=== PATIENT | male | born 1950 | race Caucasian/White ===

== ENCOUNTER → 2018-10-05 | Outpatient (CLI) | payer MEDICARE ==
--- NOTE | 2018-10-05 13:37 | REP ---
BILATERAL HIPS, FIVE VIEWS: HISTORY: Pain. RIGHT HIP: There is no acute fracture or dislocation. There is marked narrowing of the hip joint space with associated sclerosis and osteophyte formation. Subchondral cysts are present in the acetabulum. IMPRESSION: Degenerative change as described above. LEFT HIP: There is no acute fracture or dislocation. There is marked narrowing of the hip joint space with associated sclerosis and osteophyte formation. Subchondral cysts are present in the acetabulum and femoral head. IMPRESSION: Degenerative change as described above. Electronically Signed by Ted Vick MD 10/05/2018 01:39 P
== END ==
LOC: M WUC 12:29
PROVIDERS: ATTEND Physician Assistant
DX: M25.551 Pain in right hip (principal); M25.552 Pain in left hip

== ENCOUNTER → 2018-12-29 | Outpatient (REF) | payer MEDICARE ==
[~2018-12-29] MED LIST: TRAM1CAP15 PO
[2018-12-29 17:40] LABS: ALBUMIN 3.2 GM/DL (3.2-5.2); ALT/SGPT 31 U/L (12-78); BILIRUBIN,TOTAL 1.6 MG/DL (0.2-1.0); BLOOD UREA NITROGEN 9 MG/DL (7-18); CALCIUM LEVEL 8.5 MG/DL (8.8-10.2); CARBON DIOXIDE LEVEL 23 MEQ/L (21-32); CHLORIDE LEVEL 111 MEQ/L (98-107); CREATININE FOR GFR 0.79 MG/DL (0.70-1.30); GLOMERULAR FILTRATION RATE > 60.0 (>49); GLUCOSE, FASTING 99 MG/DL (70-100); POTASSIUM SERUM 3.7 MEQ/L (3.5-5.1); SODIUM LEVEL 141 MEQ/L (136-145); TOTAL PROTEIN 6.8 GM/DL (6.4-8.2)
[2018-12-29 17:53] LABS: HEMATOCRIT 44.3 % (42.0-52.0); HEMOGLOBIN 15.6 g/dl (13.5-17.5); MEAN CORPUSCULAR HEMOGLOBIN 36.2 pg (27.0-33.0); MEAN CORPUSCULAR HGB CONC 35.2 g/dl (32.0-36.5); MEAN CORPUSCULAR VOLUME 102.8 fl (80.0-96.0); RED BLOOD COUNT 4.31 10^6/uL (4.30-6.10)
[2018-12-29 18:33] LABS: PLATELET COUNT, AUTOMATED 51 10^3/uL (150-450)
== END ==
LOC: M LABDRAW1 16:02 → M LAB REF 16:02
PROVIDERS: ATTEND Orthopaedic Surgery
DX: M16.12 Unilateral primary osteoarthritis, left hip (principal)

== ENCOUNTER 2019-01-12 13:00 | Inpatient (IN) | payer MEDICARE ==
[~2019-01-12] VITALS: Ht 180.3 cm; Wt 112.6 kg
[2019-01-14] MEDS ORDERED: TYLE650T35 PO (10:42)
--- NOTE | 2019-01-15 13:52 | HPE ---
DATE OF INTENDED ADMISSION: 01/19/2019 ATTENDING PHYSICIAN: Dr. Robert Gross. CHIEF COMPLAINT: Left hip pain and stiffness. HISTORY: This is a pleasant adult male patient with progressively worsening left hip pain and stiffness who comes into the clinic today failing to improve with conservative management. He has elected for surgery for his continued symptoms. He has consented for a left total hip arthroplasty by Dr. Gross. ALLERGIES: Demerol CURRENT MEDICATIONS: hydrochlorothiazide 50mg, aleve 220mg PAST MEDICAL HISTORY: hypertension PAST SURGICAL HISTORY: appendectomy, carpal tunnel release, clavicle surgery, right knee surgery FAMILY HISTORY: Mother: cancer SOCIAL HISTORY: The patient does not smoke, he does use alcohol daily. REVIEW OF SYSTEMS: Denies fever, chills, chest pains, shortness of breath, nausea or vomiting, diarrhea. Did report recent pain and stiffness with weightbearing activities in the left hip. Denies any recent upper respiratory or urinary tract infection. PHYSICAL EXAMINATION: On physical exam, he is a well-developed, well-nourished adult male, in no apparent distress. He ambulates in the clinic today with a slightly antalgic gait favoring the left side. He is normocephalic, atraumatic. Neck is supple and nontender with no lymphadenopathy or jugular venous distention (JVD). S1, S2 are auscultated with no murmurs, rubs or gallops. Lungs: Clear to auscultation bilaterally. Abdomen was soft and nondistended. Examination of the left hip reveals intact skin and there is no rashes or ecchymosis. He has a well perfused left lower extremity. EKG noted for unusual P axis, possible ectopic ATAC with second degree AV block and AV conduction abnormality, nonspecific T-wave wave abnormalities. Prolonged QT. Chest x-ray shows normal cardiac and mediastinal contours. Pulmonary vascular within normal limits. Lungs: Clear. No pleural effusion and no active disease in the chest. Labs show creatinine 58, white blood cells 3.1, red blood cells 4.68, hemoglobin 164, hematocrit 0.46, platelets 54. Sed rate 21. Medical optimization was performed by the patient's primary care provider and was reviewed today on the chart. ASSESSMENT/PLAN: Symptomatic left hip osteoarthritis. PLAN: Consented surgery for left total hip arthroplasty by Dr. Gross. [facility]
[2019-01-19] MEDS ORDERED: LR 1,000 ML IV ONE (06:00)
[2019-01-19] MEDS ORDERED: ACETAMINOPHEN 500 MG TAB PO ONE (06:00)
[2019-01-19 12:40] LABS: PLATELET COUNT, AUTOMATED 50 10^3/uL (150-450)
[2019-01-19] MEDS ORDERED: PROPOFOL 200 MG/20 ML VIAL As Ordered ONE ×2 (14:26→17:43)
[2019-01-19] MEDS ORDERED: LIDOCAINE 2% INJ 100 MG/5 ML SDV (FOR ANES.) As Ordered ONE (14:26)
[2019-01-19] MEDS ORDERED: ONDANSETRON 4MG/2ML VIAL (J2405) As Ordered ONE (14:26)
[2019-01-19] MEDS ORDERED: fentaNYL 100 MCG/2 ML INJECTION (J3010) As Ordered ONE (14:28)
[2019-01-19] MEDS ORDERED: MIDAZOLAM INJ 2 MG/2 ML VIAL (J2250) As Ordered ONE (14:28)
[2019-01-19] MEDS ORDERED: ceFAZolin 1GM INJ (J0690 PER 500MG) As Ordered ONE (14:42)
[2019-01-19] MEDS ORDERED: EPINEPHrine INJ 1 MG/ML 1ML AMP As Ordered ONE (14:42)
[2019-01-19] MEDS ORDERED: dexameTHASONE 4 MG/ML 1ML VIAL (J1100) As Ordered ONE (15:44)
[2019-01-19] MEDS ORDERED: ROCURONIUM BROMIDE 50 MG/5 ML VIAL As Ordered ONE ×2 (15:44→16:50)
[2019-01-19] MEDS ORDERED: LABETALOL HCL 100 MG/20 ML VIAL As Ordered ONE (16:21)
[2019-01-19] MEDS ORDERED: NITROGLYCERIN 2% OINT 1 GM *U/D* PKT As Ordered ONE (16:33)
[2019-01-19] MEDS ORDERED: HYDROmorphone HCL 2 MG/ML 1ML VIAL (J1170) As Ordered ONE (16:43)
[2019-01-19] MEDS ORDERED: SUGAMMADEX SODIUM 500 MG/5 ML VIAL (BRIDION) As Ordered ONE (16:47)
[2019-01-19] MEDS ORDERED: MORPHINE 1MG/ML IN 0.9% NACL 100ML IV BAG As Ordered ONE (18:26)
[2019-01-19] MEDS ORDERED: diphenhydrAMINE INJ 50MG/ML VIAL (J1200) IV PRN (18:45)
[2019-01-19] MEDS ORDERED: MORPHINE 1MG/ML IN 0.9% NACL 100ML IV BAG IV PRN (18:45)
[2019-01-19] MEDS ORDERED: NALOXONE INJ 0.4 MG/1 ML VIAL (J2310) IV PRN (18:45)
[2019-01-19] MEDS ORDERED: FLEET ENEMA PR PRN (18:45)
[2019-01-19] MEDS ORDERED: LR 1,000 ML IV SCH ×2 (18:45)
[2019-01-19] MEDS ORDERED: fentaNYL 100 MCG/2 ML INJECTION (J3010) IV PRN (18:45)
[2019-01-19] MEDS ORDERED: NORCO, ANEXSIA 5/325MG TABLET (HYDROcodone/ACETAMINOPHEN) PO PRN (18:45)
[2019-01-19] MEDS ORDERED: ACETAMINOPHEN TAB 650MG DOSE (2X325MG) PO PRN (18:45)
[2019-01-19] MEDS ORDERED: NALBUPHINE HCL 10 MG/ML AMP (J2300) IV PRN (18:45)
[2019-01-19] MEDS ORDERED: EPIDURAL/PCA KEYS XX PRN (18:45)
[2019-01-19] MEDS ORDERED: ONDANSETRON 4MG/2ML VIAL (J2405) IV PRN ×2 (18:45)
[2019-01-19 20:00] VITALS: BP 210/106
[2019-01-19] MEDS ORDERED: hydrALAZINE INJ 20 MG/ML VIAL IV STA (20:43)
[2019-01-19 21:35] VITALS: BP 158/75
[2019-01-19 22:00] VITALS: BP 141/69
[2019-01-19] MEDS: amLODIPine 10 MG TAB PO SCH (22:17)
--- NOTE | 2019-01-19 23:32 | CR.PDOC ---
General Date of Consultation: Jan 19, 2019 Consultation REASON FOR CONSULTATION/CHIEF COMPLAINT: co management. HISTORY OF PRESENT ILLNESS: 68 y/o M s/p total left hip replacement after failing outpatient conservative treatment for osteoarthritis. Pt tolerated the procedure very well. Postoperatively pt was found hypertensive and was given iv hydralazine 10 mg once. Hospitalist service was consulted for comanagement. Pt was seen and examined at bedside. Pt was resting comfortably in bed. Pt c/o pain around left hip surgery site but stated that it is controlled with current meds. Pt was supposed to be on home meds for BP but he was not taking home meds. PMH- Osteoarthritis, HTN PSxH- Tonsillectomy Allergies- Meperidine- vomiting Home meds- reviewed, please refer to permanent medical records. SH- Never smoker, occasional alcohol intake, lives with significant other, uses a walker to walk around. FH- reviewed, non contributory ROS- 10 points review of system was performed and it was negative except as per HPI PHYSICAL EXAMINATION: VITAL SIGNS: Please see below. GENERAL APPEARANCE: not in acute distress HEENT: oral mucosa moist RESPIRATORY: clear to auscultation, no added sounds CARDIOVASCULAR: S1/S2 ABDOMEN: Regular bowel sounds, no tenderness EXTREMITIES: b/l lower extremities neurovascularly intact NEUROLOGICAL: No focal deficit PSYCHIATRIC: Mood normal Labs reviewed. Wbc 3.0 Plats 5- there is only one prior lab available to compare with from 12/29/18- plats were 51 ASSESSMENT Impression- s/p total left hip replacement Plan pain management, discharge planning and DVT ppx as per primary ortho team. HTN will start pt on PO Amlodipine 10 mg once daily will monitor BP Closely Obesity- supportive care Thrombocytopenia Unclear etiology and duration o/p hematology f/u Vital Signs/I&O Vital Signs Date Time Temp Pulse Resp B/P (MAP) Pulse Ox O2 Delivery O2 Flow Rate FiO2 01/19/19 21:18 210/106 01/19/19 20:00 97.6 74 20 93 2.0 Laboratory Data Labs 24H Laboratory Tests 2 01/19/19 12:17: Immature Platelet Fraction 3.1 CBC/BMP Laboratory Tests 01/19/19 12:17 Allergies Coded Allergies: meperidine (Verified Adverse Reaction, Intermediate, VOMITING, 01/19/19) Home Medications Scheduled Tramadol Hcl (Tramadol HCl ER) 100 Mg Cap, 50 MG PO PRN, (Reported) Scheduled PRN Acetaminophen (Tylenol Arthritis) 650 Mg Tablet.er, 650 MG PO Q8H PRN for PAIN, (Reported) FABIENNE MENDES MD Jan 19, 2019 22:23
[2019-01-19 23:59] VITALS: BP 141/65
[2019-01-20] VITALS (23 sets, daily range): BP systolic 127–160; BP diastolic 57–74; O2SAT 86–96
[2019-01-20] MEDS ORDERED: PERCOCET 5MG/325MG TAB PO PRN (06:15)
--- NOTE | 2019-01-20 08:25 | REP ---
HIP: THREE VIEWS. HISTORY: Postop. Portable exam. FINDINGS: The patient is status post left hip arthroplasty which appears well aligned. Lateral skin pili and soft tissue swelling are seen. Electronically Signed by Garrett Valle MD 01/20/2019 09:15 A
[2019-01-20] MEDS: MOM 30ML SUSPENSION UDC PO SCH (08:42)
[2019-01-20] MEDS: amLODIPine 10 MG TAB PO SCH (08:43)
[2019-01-20] MEDS: MIRALAX *UNIT DOSE* 17GM PACKET PO SCH (08:43)
[2019-01-20 09:18] LABS: HEMATOCRIT 39.2 % (42.0-52.0); HEMOGLOBIN 13.3 g/dl (13.5-17.5); MEAN CORPUSCULAR HEMOGLOBIN 35.9 pg (27.0-33.0); MEAN CORPUSCULAR HGB CONC 33.9 g/dl (32.0-36.5); MEAN CORPUSCULAR VOLUME 105.9 fl (80.0-96.0); WHITE BLOOD COUNT 9.3 10^3/uL (4.0-10.0)
[2019-01-20 09:27] LABS: PLATELET COUNT, AUTOMATED 97 10^3/uL (150-450)
[2019-01-20 09:40] LABS: INR 1.28; PROTHROMBIN TIME 16.2 SECONDS (12.1-14.4)
[2019-01-20 09:45] LABS: BLOOD UREA NITROGEN 14 MG/DL (7-18); CALCIUM LEVEL 7.8 MG/DL (8.8-10.2); CARBON DIOXIDE LEVEL 24 MEQ/L (21-32); CHLORIDE LEVEL 106 MEQ/L (98-107); CREATININE FOR GFR 0.91 MG/DL (0.70-1.30); GLOMERULAR FILTRATION RATE > 60.0 (>49); GLUCOSE, FASTING 166 MG/DL (70-100); SODIUM LEVEL 139 MEQ/L (136-145)
[2019-01-20] MEDS: PERCOCET 5MG/325MG TAB PO PRN ×3 (09:50→22:22)
--- NOTE | 2019-01-20 12:07 | RO ---
DATE OF PROCEDURE: 01/19/2019 PREOPERATIVE DIAGNOSIS: Left hip degenerative osteoarthritis. POSTOPERATIVE DIAGNOSIS: Left hip degenerative osteoarthritis. PROCEDURE: Left total hip arthroplasty using a size 54 Gription cup with a high offset #5 Selma stem with 1.5 neck, 36 mm ball. Prosthesis made by [employer]. SURGEON: Dr. Dana Gross [employer] LIGHT: DION Hunt ANESTHESIA: General endotracheal tube anesthetic. COMPLICATIONS: None. SPECIMENS: Femoral head. ESTIMATED BLOOD LOSS: Around 250-300 mL. PROCEDURE: Antibiotics were given intravenously preoperatively and a successful general endotracheal tube anesthetic was established, and then he was placed over in a lateral decubitus position with the down leg well padded, especially the peroneal nerve an axillary roll was utilized. Bergholz hip position was utilized to help position the patient. His left hip area was then carefully prepped and draped in the usual sterile fashion, and after appropriate time-out, a longitudinal incision was made for a direct anterolateral approach to the hip. Bovie cautery used to coagulate the crossing vessels down to the tensor fascia. The tensor fascia was then divided in line with the skin incision. Then, we split the gluteus medius anterior one third and posterior two third junctions. Bovie cautery was used throughout and meticulous hemostasis was cared for throughout the procedure because of his low platelet count. We then carefully dissected the anterior hip capsule and the gluteus minimus and medius off the anterior aspect of the greater trochanter as we externally rotated, then dislocated the hip. Piriformis fossa was identified. Starter reamer placed, followed by the canal finding reamer, then the lateralizing reamer. Then, we reamed up to a size 5. Femoral neck osteotomy was performed using the template. Then, we began broaching up to a size 4 initially, then eventually we were actually able to get a #5 broach down. We were about a little less than a fingerbreadth above the lesser trochanter. We exposed the acetabulum, performed a labral excision 360 degrees and then began reaming beginning with 46 mm and advanced up to 53. A trial 54 cup fit perfectly. I did have to ream medially quite a bit because he was quite lateralized from a large floor osteophyte. We copiously irrigated, then placed the real Gription 54 cup using the extramedullary alignment jig to help set our version and abduction. The cup fit nicely. The central hole eliminator placed, followed with the polyethylene. I did debride the anterior and inferior osteophytes using a small curved osteotome. I then exposed the proximal femur once again and copiously irrigated out the femoral canal. At first, we placed the #4 broach and then we did trial the #4 broach using a 1.5 neck first and then the 5. The 5 was a bit too snug. He had minimal telescoping even with a 1.5, and I felt that this was appropriate length. He was very stable with flexion internal rotation and extension external rotation. I did remove the broach at this point, and I reamed once again with a 5 reamer and I felt that they were a little bit better fill with needed proximally around the #4 broach. Thus, I was able to get the #5 down. I then called for the #5 high offset Selma stem and I placed that after copiously irrigating out the femoral canal. The 36 mm ball with 1.5 neck length was then applied to the trunnion after drying it thoroughly and then we reduced the hip. He was very stable again both in flexion internal rotation and extension external rotation with minimal telescoping. We then copiously irrigated out the hip joint, carefully repaired the gluteus minimus back anatomically with interrupted #1 PDS sutures. We then closed the gluteus medius layer back anatomically with several interrupted #1 PDS sutures as well as the vastus lateralis more distally. We irrigated again, then closed the tensor fascia with a combination of #1 PDS and a running #1 Stratafix suture. We irrigated again, then closed the deep subdermal tissues with interrupted #2-0 PDS suture. The skin was closed with pili covered by Adaptic, followed by dry sterile bulky dressing. The patient was then turned supine, awakened from general endotracheal tube anesthesia after having tolerated the procedure well, then transferred to the recovery room in stable condition. There were no intraoperative complications. Mr. Dallas Soriano was critical to the success of this difficult surgery by helping to manipulate the leg in and out of the leg bag anteriorly, helped with appropriate soft tissue retraction, helped to close the wound, helped to prepare the patient otherwise so I could perform the difficult operation smoothly, efficiently and safely.
[2019-01-20] MEDS ORDERED: SLF 3 ML SYR IV PRN (15:15)
[2019-01-20] MEDS: RIVAROXABAN 10 MG TAB (XARELTO) PO SCH (17:25)
--- NOTE | 2019-01-20 17:50 | IPNPDOC ---
Date Seen The patient was seen on 01/20/19. Progress Note SUBJECTIVE: Patient without any complaints today. Tolerated surgery yesterday and doing well. Patient was noted to have high blood pressure in the hospital but as per patient had an his he has whitecoat and situational hypertension. At home his blood pressures normal. Patient asymptomatic in terms of headache, shortness of breath, headache, or dizziness. OBJECTIVE PHYSICAL EXAMINATION: VITAL SIGNS: Please see below. GENERAL APPEARANCE: not in acute distress HEENT: oral mucosa moist RESPIRATORY: clear to auscultation, no added sounds CARDIOVASCULAR: S1/S2 ABDOMEN: Regular bowel sounds, no tenderness EXTREMITIES: b/l lower extremities neurovascularly intact NEUROLOGICAL: No focal deficit PSYCHIATRIC: Mood normal LABORATORY DATA, IMAGING STUDIES, MICROBIOLOGY: Please see below. ASSESSMENT AND PLAN: 68-year-old gentleman with significant past medical history of osteoarthritis and whitecoat syndrome related hypertension (not on any home medication) admitted to the hospital due to osteoarthritis status post left hip replacement. Hospitalist was consulted for medical management. PROBLEMS: s/p total left hip replacement -pain management, -discharge planning and DVT ppx as per primary ortho team. HTN, suspect white coat syndrome and treat temporarily but less below -pt on PO Amlodipine 10 mg once daily from hospital, d/c prn -will monitor BP Closely -Pain management Obesity -supportive care Thrombocytopenia -Unclear etiology and duration -o/p hematology f/u if necessary DVT prophylaxis as per surgery VS, I&O, 24H, Fishbone Vital Signs/I&O Vital Signs Date Time Temp Pulse Resp B/P (MAP) Pulse Ox O2 Delivery O2 Flow Rate FiO2 01/20/19 17:25 20 2.0 01/20/19 17:00 94 Nasal Cannula 01/20/19 12:00 98.8 76 139/61 (87) 01/20/19 04:00 93 I&O- Last 24 Hours up to 6 AM 01/20/19 06:00 Intake Total 3093 ml Output Total 850 ml Balance 2243 ml Laboratory Data 24H LABS Laboratory Tests 2 01/20/19 08:37: Nucleated Red Blood Cells % (auto) 0.0, Prothrombin Time 16.2H, Prothromb Time International Ratio 1.28, Anion Gap 9, Glomerular Filtration Rate > 60.0, Blood Urea Nitrogen 14, Creatinine 0.91, Sodium Level 139, Potassium Level 4.0, Chloride Level 106, Carbon Dioxide Level 24, Calcium Level 7.8L CBC/BMP Laboratory Tests 01/20/19 08:37 Red Blood Count 3.70 L, Mean Corpuscular Volume 105.9 H, Mean Corpuscular Hemoglobin 35.9 H, Mean Corpuscular Hemoglobin Concent 33.9, Red Cell Distribution Width 15.5 H, Calcium Level 7.8 L IRA RANDOLPH MD Jan 20, 2019 17:50
[2019-01-20] MEDS: SLF 3 ML SYR IV SCH (20:58)
[2019-01-21] VITALS (17 sets, daily range): BP systolic 130–145; BP diastolic 61–70; O2SAT 85–96
[2019-01-21 05:48] LABS: INR 2.1
[2019-01-21 06:02] LABS: BLOOD UREA NITROGEN 16 MG/DL (7-18); CALCIUM LEVEL 7.6 MG/DL (8.8-10.2); CARBON DIOXIDE LEVEL 29 MEQ/L (21-32); CHLORIDE LEVEL 106 MEQ/L (98-107); CREATININE FOR GFR 0.74 MG/DL (0.70-1.30); GLOMERULAR FILTRATION RATE > 60.0 (>49); GLUCOSE, FASTING 137 MG/DL (70-100); SODIUM LEVEL 139 MEQ/L (136-145)
[2019-01-21] MEDS: SLF 3 ML SYR IV SCH ×3 (06:22→21:21)
[2019-01-21 08:32] LABS: HEMATOCRIT 34.7 % (42.0-52.0); HEMOGLOBIN 11.7 g/dl (13.5-17.5); MEAN CORPUSCULAR HEMOGLOBIN 36.1 pg (27.0-33.0); MEAN CORPUSCULAR HGB CONC 33.7 g/dl (32.0-36.5); MEAN CORPUSCULAR VOLUME 107.1 fl (80.0-96.0); RED BLOOD COUNT 3.24 10^6/uL (4.30-6.10); WHITE BLOOD COUNT 6.6 10^3/uL (4.0-10.0)
[2019-01-21] MEDS: amLODIPine 10 MG TAB PO SCH (08:38)
[2019-01-21] MEDS: MIRALAX *UNIT DOSE* 17GM PACKET PO SCH (08:38)
[2019-01-21] MEDS: MOM 30ML SUSPENSION UDC PO SCH (08:38)
--- NOTE | 2019-01-21 13:13 | IPNPDOC ---
Date Seen The patient was seen on 01/21/19. Progress Note SUBJECTIVE: Patient resting comfortably eating his breakfast without any difficulty. Patient still requiring oxygen therapy. Patient's pain medication narcotic being adjusted by surgery. His blood pressure still mildly elevated but again he reinforces that he has white coat syndrome. This information confirmed by his yesterday who is a nurse. As per patient and patient normally has a normal blood pressure at home. Patient states being symptomatically with mild elevation of blood pressure, continue to monitor. OBJECTIVE PHYSICAL EXAMINATION: VITAL SIGNS: Please see below. GENERAL APPEARANCE: not in acute distress HEENT: oral mucosa moist RESPIRATORY: clear to auscultation, no added sounds CARDIOVASCULAR: S1/S2 ABDOMEN: Regular bowel sounds, no tenderness EXTREMITIES: b/l lower extremities neurovascularly intact NEUROLOGICAL: No focal deficit PSYCHIATRIC: Mood normal LABORATORY DATA, IMAGING STUDIES, MICROBIOLOGY: Please see below. ASSESSMENT AND PLAN: 68-year-old gentleman with significant past medical history of osteoarthritis and whitecoat syndrome related hypertension (not on any home medication) admitted to the hospital due to osteoarthritis status post left hip replacement. Hospitalist was consulted for medical management. PROBLEMS: s/p total left hip replacement -pain management, -discharge planning and DVT ppx as per primary ortho team. Hypoxemia requiring oxygen therapy -Pain medicationnarcotic dosing adjusted by surgery HTN, suspect white coat syndrome and treat temporarily but less below -pt on PO Amlodipine 10 mg once daily from hospital, d/c prn -will monitor BP Closely -Pain management Obesity -supportive care Thrombocytopenia -Unclear etiology and duration -o/p hematology f/u if necessary -platelet clumping, EDTA fee sample ordered DVT prophylaxis as per surgery. VS, I&O, 24H, Isabella Vital Signs/I&O Vital Signs Date Time Temp Pulse Resp B/P (MAP) Pulse Ox O2 Delivery O2 Flow Rate FiO2 01/21/19 12:00 99.1 74 20 134/66 (88) 94 1.0 01/21/19 06:00 Nasal Cannula 01/20/19 04:00 93 I&O- Last 24 Hours up to 6 AM 01/21/19 06:00 Intake Total 958 ml Output Total 400 ml Balance 558 ml Laboratory Data 24H LABS Laboratory Tests 2 01/21/19 05:08: Nucleated Red Blood Cells % (auto) 0.0 01/21/19 05:11: Prothrombin Time 24.0H, Prothromb Time International Ratio 2.10, Anion Gap 4L, Glomerular Filtration Rate > 60.0, Blood Urea Nitrogen 16, Creatinine 0.74, Sodium Level 139, Potassium Level 4.0, Chloride Level 106, Carbon Dioxide Level 29, Calcium Level 7.6L CBC/BMP Laboratory Tests 01/21/19 05:08 Red Blood Count 3.24 L, Mean Corpuscular Volume 107.1 H, Mean Corpuscular Hemoglobin 36.1 H, Mean Corpuscular Hemoglobin Concent 33.7, Red Cell Distribution Width 15.3 H 01/21/19 05:11 Calcium Level 7.6 L IRA RANDOLPH MD Jan 21, 2019 13:13
[2019-01-21 13:41] LABS: PLTBLUE- EDTA FREE CALC 65 K/mm3 (172-450)
[2019-01-21 14:29] LABS: PLTBLUE- EDTA FREE MACHINE 59 10^3/uL (172-450)
[2019-01-21] MEDS: RIVAROXABAN 10 MG TAB (XARELTO) PO SCH (17:00)
[2019-01-21] MEDS: PERCOCET 5MG/325MG TAB PO PRN (21:25)
[2019-01-22] VITALS (11 sets, daily range): BP systolic 125–137; BP diastolic 65–81; O2SAT 92–95
[2019-01-22 05:28] LABS: HEMOGLOBIN 11.6 g/dl (13.5-17.5); MEAN CORPUSCULAR HEMOGLOBIN 35.5 pg (27.0-33.0); MEAN CORPUSCULAR HGB CONC 33.1 g/dl (32.0-36.5); RED BLOOD COUNT 3.27 10^6/uL (4.30-6.10)
[2019-01-22 05:31] LABS: PLATELET COUNT, AUTOMATED 67 10^3/uL (150-450)
[2019-01-22 05:51] LABS: BLOOD UREA NITROGEN 16 MG/DL (7-18); CALCIUM LEVEL 7.9 MG/DL (8.8-10.2); CARBON DIOXIDE LEVEL 30 MEQ/L (21-32); CHLORIDE LEVEL 104 MEQ/L (98-107); CREATININE FOR GFR 0.71 MG/DL (0.70-1.30); GLOMERULAR FILTRATION RATE > 60.0 (>49); GLUCOSE, FASTING 138 MG/DL (70-100); POTASSIUM SERUM 3.4 MEQ/L (3.5-5.1); SODIUM LEVEL 139 MEQ/L (136-145)
[2019-01-22] MEDS: SLF 3 ML SYR IV SCH (06:00)
[2019-01-22] MEDS ORDERED: PERC5TAB12 PO (06:32)
[2019-01-22] MEDS ORDERED: XARE10TA PO (06:32)
[2019-01-22] MEDS: amLODIPine 10 MG TAB PO SCH (08:47)
[2019-01-22] MEDS: MIRALAX *UNIT DOSE* 17GM PACKET PO SCH (08:50)
[2019-01-22] MEDS: MOM 30ML SUSPENSION UDC PO SCH (08:50)
[2019-01-22] MEDS: PERCOCET 5MG/325MG TAB PO PRN (09:05)
--- NOTE | 2019-01-22 13:54 | IPNPDOC ---
Date Seen The patient was seen on 01/22/19. Progress Note SUBJECTIVE: Patient feeling well and off oxygen. Patient discharged home by surgery today. Patient's at the bedside states the patient has a history of thrombocytopenia being monitored as outpatient.. OBJECTIVE PHYSICAL EXAMINATION: VITAL SIGNS: Please see below. GENERAL APPEARANCE: not in acute distress HEENT: oral mucosa moist RESPIRATORY: clear to auscultation, no added sounds CARDIOVASCULAR: S1/S2 ABDOMEN: Regular bowel sounds, no tenderness EXTREMITIES: b/l lower extremities neurovascularly intact NEUROLOGICAL: No focal deficit PSYCHIATRIC: Mood normal LABORATORY DATA, IMAGING STUDIES, MICROBIOLOGY: Please see below. ASSESSMENT AND PLAN: 68-year-old gentleman with significant past medical history of osteoarthritis and whitecoat syndrome related hypertension (not on any home medication) admitted to the hospital due to osteoarthritis status post left hip replacement. Hospitalist was consulted for medical management. PROBLEMS: s/p total left hip replacement -pain management, -discharge planning and DVT ppx as per primary ortho team. Hypoxemia requiring oxygen therapy -Pain medicationnarcotic dosing adjusted by surgery HTN, and patient states that hypertension while hospitalized due to white coat syndrome and does not want medication at home. Patient also has a blood pressure cuff at home and so is consistently normal but elevated during visit to M.D. office -pt on PO Amlodipine 10 mg once daily while in the hospital -will monitor BP Closely -Pain management -Please follow up with PCP as outpatient Obesity -supportive care Thrombocytopenia -Patient and his is aware of thrombocytopenia and is being followed up as outpatient -Unclear etiology and duration -o/p hematology f/u if necessary -platelet clumping, EDTA fee sample ordered, still Thrombocytopenia DVT prophylaxis as per surgery. VS, I&O, 24H, Hectorbone Vital Signs/I&O Vital Signs Date Time Temp Pulse Resp B/P (MAP) Pulse Ox O2 Delivery O2 Flow Rate FiO2 01/22/19 10:00 92 Room Air 01/22/19 09:35 20 01/22/19 08:47 77 137/67 01/22/19 08:00 99.3 01/22/19 07:00 1.0 01/20/19 04:00 93 I&O- Last 24 Hours up to 6 AM 01/22/19 06:00 Intake Total 1544 ml Output Total 0 ml Balance 1544 ml Laboratory Data 24H LABS Laboratory Tests 2 01/22/19 04:48: Nucleated Red Blood Cells % (auto) 0.0, Immature Platelet Fraction 3.0, Anion Gap 5L, Glomerular Filtration Rate > 60.0, Blood Urea Nitrogen 16, Creatinine 0.71, Sodium Level 139, Potassium Level 3.4L, Chloride Level 104, Carbon Dioxide Level 30, Calcium Level 7.9L CBC/BMP Laboratory Tests 01/22/19 04:48 Red Blood Count 3.27 L, Mean Corpuscular Volume 107.0 H, Mean Corpuscular Hemoglobin 35.5 H, Mean Corpuscular Hemoglobin Concent 33.1, Red Cell Dis tribution Width 15.0 H, Calcium Level 7.9 L IRA RANDOLPH MD Jan 22, 2019 13:54
== END 2019-01-22 12:13 | disposition home or self-care (01) | DRG 470 ==
LOC: M OR 01-19 11:53 → M PCU 01-19 19:32
PROVIDERS: ADMIT Orthopaedic Surgery; ATTEND Orthopaedic Surgery
PROC: 0SRB02A Replacement of Left Hip Joint with Metal on Polyethylene Synthetic Substitute, Uncemented, Open Approach (ICD-10-PCS; principal; 2019-01-19 14:30)
DX: M16.12 Unilateral primary osteoarthritis, left hip (principal); I10 Essential (primary) hypertension; Z88.8 Allergy status to other drugs, medicaments and biological substances; D69.6 Thrombocytopenia, unspecified; E66.9 Obesity, unspecified

== ENCOUNTER 2020-12-11 06:36 | Inpatient (IN) | payer MEDICARE ==
[2020-12-11] VITALS (7 sets, daily range): BP systolic 116–182; BP diastolic 54–70
[~2020-12-11] VITALS: Ht 180.3 cm; Wt 99.8 kg
[~2020-12-11 06:36] MED LIST changes: +ACET650T61 PO; +ACETAMINOPHEN 500 MG TAB PO ONE; +LIDOCAINE 1% MDV 20ML VIAL SQ PRN; +LR 1,000 ML IV ONE; +PERC5TAB12 PO; +XARE10TA PO; +ceFAZolin SOD 2 GM in IV 1 EA IV ONE
[2020-12-11] MEDS ORDERED: propofoL 200 MG/20 ML VIAL As Ordered ONE (07:17)
[2020-12-11] MEDS ORDERED: LIDOCAINE 2% 100MG/5ML SDV (FOR ANES.) As Ordered ONE (07:17)
[2020-12-11] MEDS ORDERED: CHLOROPROCAINE PRES. FREE 3% 20ML VIAL As Ordered ONE (07:17)
[2020-12-11] MEDS ORDERED: fentaNYL 100 MCG/2 ML INJECTION (J3010) As Ordered ONE ×2 (07:18→10:07)
[2020-12-11] MEDS ORDERED: MIDAZOLAM INJ 2MG/2ML VIAL (J2250 PER 1MG) As Ordered ONE (07:18)
[2020-12-11] MEDS ORDERED: ceFAZolin 1GM VIAL (J0690 PER 500MG) As Ordered ONE (07:19)
[2020-12-11 07:22] LABS: HEMATOCRIT 48.7 % (42.0-52.0); HEMOGLOBIN 16.4 g/dl (13.5-17.5); MEAN CORPUSCULAR HGB CONC 33.7 g/dl (32.0-36.5); RED BLOOD COUNT 4.82 10^6/uL (4.30-6.10); WHITE BLOOD COUNT 3.8 10^3/uL (4.0-10.0)
[2020-12-11 07:30] LABS: INR 1.19; PROTHROMBIN TIME 15.4 SECONDS (12.5-14.3)
[2020-12-11 07:31] LABS: PARTIAL THROMBOPLASTIN TIME 31.4 SECONDS (24.2-38.5)
[2020-12-11 07:38] LABS: PLATELET COUNT, AUTOMATED 60 10^3/uL (150-450)
[2020-12-11] MEDS ORDERED: ROCURONIUM BROMIDE 50 MG/5 ML VIAL As Ordered ONE (07:56)
[2020-12-11] MEDS ORDERED: ONDANSETRON 4MG/2ML VIAL As Ordered ONE (07:56)
[2020-12-11] MEDS ORDERED: METOCLOPRAMIDE INJ 10MG/2ML VIAL (J2765 PER 1) As Ordered ONE (07:56)
--- NOTE | 2020-12-11 08:17 | HPE ---
HISTORY AND PHYSICAL DATE OF ADMISSION: 12/11/2020 REASON FOR ADMISSION: Osteoarthritis of right hip for right hip replacement. HISTORY OF PRESENT ILLNESS: He is a 70-year-old male who has had longstanding troubles with the right hip with osteoarthritic pain and functional disability. He has successfully undergone left total hip replacement two years ago. He presents for the same on his right hip. His symptoms are pain, soreness, inability to ambulate to long distances, negotiate stairs, in and out of cars is difficult, putting shoes and socks on is difficult. He has been noted to have severe arthritis on his hip x-rays through our office. He has been consented for hip replacement. MEDICAL HISTORY: Significant for history of: 1. High blood pressure. 2. Chronic thrombocytopenia. 3. Asthma. 4. Alcohol abuse. PAST SURGICAL HISTORY: 1. Left hip replacement. 2. Bilateral carpal tunnel releases. 3. Appendectomy. 4. Clavicle surgery. 5. Right knee arthroscopy. SOCIAL HISTORY: Does not smoke. He has cut down on drinking, he drinks two beers a day. 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 Presently he has dual [place] and [place] citizenship, lives in [place] and [place], came here today just for his surgery. REVIEW OF SYSTEMS: He has been taken off his blood pressure medicines and his asthma medications over the last several months by his physicians in [place]. He just takes Hydrochlorothiazide occasionally now at this point and takes Celebrex and Tramadol as needed for his hip pain. ALLERGIES: DEMEROL. PHYSICAL EXAMINATION: GENERAL: Pleasant male on a stretcher, alert and oriented. VITAL SIGNS: Temperature today 97.2, pulse 51, respirations 20, blood pressure 168/72, O2 sats on room air 98%. HEENT: Benign. LUNGS: Clear to auscultation. HEART: Regular and there is a 2/6 systolic murmur. ABDOMEN: Nontender. EXTREMITIES: Right hip is sore with rotation in the groin but he has well perfused distal extremities with 1+ pitting edema bilaterally with good pulses noted dorsalis pedis. No motor deficits noted. Right hip x-ray shows advanced osteoarthritis of the right hip. His outside laboratory studies showed platelets 64, hematocrit normal, and hemoglobin normal. Chest x-ray is clear. Labs are pending for this morning. EKG has been completed as well. IMPRESSION: 70-year-old male with end-stage symptomatic osteoarthritis of the right hip. He has chronically low platelets felt to be attributable to his history of alcoholism. Labs are pending but he will likely need a platelet transfusion as we proceed with his hip replacement pending anesthesia evaluation as well. He signed consent today; risks have been discussed in the past in detail through the office and also again this morning, so he signed the consent for going ahead with the surgery as well as consent for possible transfusion as needed. We talked about the risk of infection, damage to nerves or blood vessels, leg length inequality, dislocations and fractures amongst others.
[2020-12-11] MEDS ORDERED: HYDROmorphone HCL 2 MG/ML 1ML VIAL (J1170) As Ordered ONE (08:39)
[2020-12-11] MEDS: fentaNYL 100 MCG/2 ML INJECTION (J3010) IV PRN ×4 (10:05→10:20)
[2020-12-11] MEDS ORDERED: oxyCODONE 5MG TAB PO PRN (10:25)
[2020-12-11] MEDS ORDERED: ONDANSETRON 4MG/2ML VIAL IV PRN ×2 (10:25)
[2020-12-11] MEDS ORDERED: PERCOCET 5MG/325MG TAB PO PRN (10:25)
[2020-12-11] MEDS ORDERED: LR 1,000 ML IV SCH ×2 (10:25)
[2020-12-11] MEDS ORDERED: HYDROMORPHONE HCL 0.5 MG/ 0.5 ML SYRINGE (J1170 PER 1) IV PRN (10:25)
--- NOTE | 2020-12-11 10:41 | RO ---
OPERATIVE NOTE DATE OF OPERATION: 12/11/2020 PREOP DIAGNOSIS: Right hip degenerative arthritis. POSTOP DIAGNOSIS: Right hip degenerative arthritis. PROCEDURE: Right total hip arthroplasty using size 54 Gription cup with 36 mm polyethylene and 1.5 mm neck with 36 ball with size 4 [place] high offset stem. Prosthesis was made by [employer]. SURGEON: Dana Perez MD AUDIT ASSOCIATE: Dallas Soriaon PA-C ANESTHESIA: General endotracheal tube anesthesia. COMPLICATIONS: None. SPECIMENS: Femoral head. ESTIMATED BLOOD LOSS: 500 mL. DESCRIPTION OF PROCEDURE: Antibiotics were given intravenously preoperatively and platelets were started as well. He was taken to the operating room where general endotracheal tube anesthetic was established and he was placed in lateral decubitus position with Howard hip positioner utilized with the right hip uppermost, abdominal area well padded, especially peroneal nerve and axillary roll utilized. The right hip area was carefully prepped and draped in usual sterile fashion. After appropriate time out a longitudinal lateral incision was made for direct lateral approach to the hip. Bovie cautery was used to coagulate crossing vessels down to the tensor fascia which was then divided in line with the skin incision. We split the gluteus medius anterior one-third, posterior two-third junction. We carefully dissected down to the gluteus minimus and then the anterior hip capsule was carefully dissected anteriorly off the greater trochanter as we externally rotated the hip and eventually dislocated it anteriorly. Piriformis fossa was identified and starter reamer was placed followed by the canal-finding reamer. Then we began reaming up to size 4 reamer. Femoral neck osteotomy was performed and box osteotome was used to open the proximal femur in appropriate version and then we broached up to size 4. It was surprising a tight canal but it had excellent fit and fill felt with #4 prosthesis even though the opposite side was #5, I did not feel that I could advance any larger for fear of causing damage to the femur. I then exposed the acetabulum, performed labral excision 360 degrees. Meticulous hemostasis was performed throughout the operation given his low platelets but there was a bit more ooze than what we normally would expect likely because of his low platelets. None the less once we had adequate exposure of the acetabulum I began reaming, beginning with a 47 mm reamer and then advancing up to 53, 54 trial fit very nicely and we used the extramedullary guide to estimate our version and abduction. We then placed real #54 Gription cup and again used the extramedullary guide to estimate our version and abduction. The cup was seated nicely. Central hole eliminator was placed. We irrigated and then placed real polyethylene. We then exposed the proximal femur, copiously irrigated out the femoral canal, placed the #4 broach with high offset x 1.5 x 36 mm ball and then did trial reduction. We felt the cup was in excellent position, he was very stable with flexion internal rotation with adduction as well as external rotation and extension. There was just minimal soft tissue telescoping. Thus I felt that this was the appropriate size component to use. The trials were all removed. We copiously irrigated again. We placed the real #4 [place] stem down the femoral canal. We dried the trunnion, placed 36 x 1.5 ball and then reduced the hip again. We copiously irrigated as we did several times throughout the operation and made sure we had good hemostasis with Bovie cautery. We began by closing the gluteus minimus back anatomically with interrupted #1 PDS sutures. We then closed the gluteus medius back in separate layer anatomically with interrupted #1 PDS sutures. We then irrigated again and closed the tensor fascia with combination of #1 PDS and then running #1 Stratafix. We copiously irrigated the subdermal tissues and then closed them with interrupted 2-0 PDS suture, skin was closed with pili, covered by Optifoam and dry, sterile bulky dressing. He was then turned supine, awakened from general endotracheal tube anesthesia after having tolerated the procedure well, transferred to the recovery room in stable condition. There were no intraoperative complications. Dallas Soriano was critical to the success of this difficult procedure by helping with appropriate soft tissue retraction, helped to dislocate and relocate the hip several times throughout the surgery, helped to prepare the patient for surgery, helped to close the wound, amongst many other tasks to allow me to perform the operation smoothly, efficiently and safely. cc: [facility]
--- NOTE | 2020-12-11 10:42 | REP ---
INDICATION: POST OP IN PACU COMPARISON: None. TECHNIQUE: AP and cross-table lateral views of the right hip FINDINGS: Patient is status post right hip replacement. Normal appearance and positioning to the femoral and acetabular components noted. Residual osseous structures are essentially normal. Surrounding soft tissues are unremarkable. IMPRESSION: Status post right hip replacement. <Electronically signed by Matt Castrejon > 12/11/20 [id number]
[2020-12-11] MEDS: PERCOCET 5MG/325MG TAB PO PRN ×2 (13:48→20:01)
[2020-12-11] MEDS: ceFAZolin SOD 2 GM in IV 1 EA IV SCH (15:53)
--- NOTE | 2020-12-11 16:54 | ECGEPIP ---
[facility] Test Date: 2020-12-11 Pat Name: IFEANYI MARQUEZ Department: Room: [place] [address] Gender: Male Consulting Manager: chelsea : 1950 Requested By: JOSE Frost Order Number: [id number] Reading MD: Timo Peña Measurements Intervals [place] Rate: 56 P: AL: 178 QRS: 32 QRSD: 94 T: 74 QT: 482 QTc: 465 Interpretive Statements Sinus bradycardia Nonspecific T wave abnormality Prolonged QT No prior ECG available for comparison at the time of interpretation. Electronically Signed on 12-11-2020 16:54:23 EDT by Timo Peña
--- NOTE | 2020-12-11 19:03 | HPEPDOC ---
General Date of Admission Dec 11, 2020 at 06:36 Date of Service: Dec 11, 2020 Chief Complaint The patient is a 70-year-old male admitted with a reason for visit of Right Hip Osteoarthritis. Source: Patient, RN/MD History of Present Illness Consultation report Consultation requested by Dr Bridges Consultation for management of medical comorbidities. HPI: 70 year old male with advanced right hip osteoarthritis admitted for right total hip replacement. Hospitalist was consulted for management of medical comorbidities. Patient complains of pain at the right hip about 4/10 in intensity , sharp aching in nature. He denies any nausea or vomiting, denies any chest pain or SOB. Home Medications No Active Prescriptions or Reported Meds Allergies Coded Allergies: meperidine (Verified Adverse Reaction, Intermediate, VOMITING, 12/05/20) Past Medical History Medical History HTN Chronic thrombocytopenia. Asthma. Alcohol abuse. Surgical History Left hip replacement. Bilateral carpal tunnel releases. Appendectomy. Clavicle surgery. Right knee arthroscopy. Family History Significant Family History: Cancer (Mother from colon cancer), Heart disease (paternal aunt), Other (father from old age) Social History * Smoker: Denies Alcohol: other (2 beers a day, cutting down on alcohol) A-FIB/CHADSVASC A-FIB History Current/History of A-Fib/PAF?: No Review of Systems Constitutional: Denies: Chills, Fever, Night Sweats Eyes: Denies: Pain, Vision change ENT: Denies: Head Aches, Ear Pain, Dysphagia Skin: Denies: Rash, Lesions, Breakdown Pulmonary: Denies: Dyspnea, Cough Cardiovascular: Denies: Chest Pain, Palpitations, Orthopnea, Paroxysmal Noc. Dyspnea, Lt Headedness Gastrointestinal: Denies: Nausea, Vomiting, Abdominal Pain, Diarrhea Genitourinary: Denies: Dysuria, Frequency, Incontinence, Retention Hematologic: Denies: Bruising, Bleeding Excessively Musculoskeletal: Reports: Joint Pain; Denies: Neck Pain, Back Pain Neurological: Denies: Weakness, Numbness, Change in speech, Confusion Psych: Reports: Mood Normal; Denies: Depression, Memory Issues Physical Examination General Exam: Positive: Alert, Cooperative, No Acute Distress Eye Exam: Positive: PERRLA, Conjunctiva & lids normal, EOMI; Negative: Sclera icteric ENT Exam: Positive: Atraumatic, Mucous membr. moist/pink, Pharynx Normal Neck Exam: Positive: Supple; Negative: JVD, thyromegaly Chest Exam: Positive: Clear to auscultation, Normal air movement Heart Exam: Positive: Rate Normal, Regular Rhythm, Normal S1, Normal S2; Negative: Murmurs, Rubs Abdomen Exam: Positive: Normal bowel sounds, Soft; Negative: Tenderness, Hepatospenomegaly Extremity Exam: Positive: Normal pulses; Negative: Clubbing, Cyanosis, Edema Vital Signs Vital Signs Date Time Temp Pulse Resp B/P (MAP) Pulse Ox O2 Delivery O2 Flow Rate FiO2 12/11/20 12:57 98.0 51 18 147/66 (93) 97 Nasal Cannula 2 Laboratory Data Labs 24H Laboratory Tests 2 12/11/20 05:25: Coronavirus (COVID-19)(PCR) NEGATIVE 12/11/20 06:57: Nucleated Red Blood Cells % (auto) 0.0, Immature Platelet Fraction 3.5, Prothrombin Time 15.4H, Prothromb Time International Ratio 1.19, Activated Partial Thromboplast Time 31.4 CBC/BMP Laboratory Tests 12/11/20 06:57 Assessment/Plan 70 year old male with advanced right hip osteoarthritis admitted for right total hip replacement. Hospitalist was consulted for management of medical comorbidities. Right total hip replacement for advanced OA pain control ad dvt prophylaxis as per Pt/Ot bowel regimen PT/OT HTN not on any meds. Bp not elevatd at present H/O Asthma says does not use any inhalers or nebs at home no issues at present. Plan / VTE VTE Prophylaxis Ordered?: Yes CAMILLE GUSMAN MD Dec 11, 2020 13:57
[2020-12-11] MEDS ORDERED: MOM 30ML SUSPENSION UDC PO PRN (19:05)
[2020-12-11] MEDS: SENOKOT S TAB PO SCH (20:00)
[2020-12-12] MEDS: ceFAZolin SOD 2 GM in IV 1 EA IV SCH ×2 (01:01→08:56)
[2020-12-12 02:00] VITALS: BP 140/62
[2020-12-12] MEDS: PERCOCET 5MG/325MG TAB PO PRN ×2 (03:23→13:56)
[2020-12-12 06:00] VITALS: BP 139/63
[2020-12-12 06:57] LABS: HEMATOCRIT 34.8 % (42.0-52.0); HEMOGLOBIN 11.6 g/dl (13.5-17.5); MEAN CORPUSCULAR HEMOGLOBIN 34.1 pg (27.0-33.0); MEAN CORPUSCULAR HGB CONC 33.3 g/dl (32.0-36.5); MEAN CORPUSCULAR VOLUME 102.4 fl (80.0-96.0); WHITE BLOOD COUNT 8.3 10^3/uL (4.0-10.0)
[2020-12-12 07:01] LABS: PLATELET COUNT, AUTOMATED 78 10^3/uL (150-450)
[2020-12-12 07:32] LABS: ALBUMIN 2.6 GM/DL (3.2-5.2); ALT/SGPT 21 U/L (12-78); BILIRUBIN,TOTAL 2.3 MG/DL (0.2-1.0); BLOOD UREA NITROGEN 24 MG/DL (7-18); CARBON DIOXIDE LEVEL 29 MEQ/L (21-32); CHLORIDE LEVEL 110 MEQ/L (98-107); CREATININE FOR GFR 0.78 MG/DL (0.70-1.30); GLOMERULAR FILTRATION RATE > 60.0 (>49); GLUCOSE, FASTING 145 MG/DL (70-100); SODIUM LEVEL 145 MEQ/L (136-145); TOTAL PROTEIN 5.4 GM/DL (6.4-8.2)
[2020-12-12] MEDS ORDERED: PERC5TAB12 PO (08:43)
[2020-12-12] MEDS ORDERED: XARE10TA PO (08:43)
[2020-12-12] MEDS: SENOKOT S TAB PO SCH ×2 (08:56→20:35)
[2020-12-12 10:00] VITALS: BP 175/82
--- NOTE | 2020-12-12 10:38 | IPNPDOC ---
Subjective Date Seen The patient was seen on 12/12/20. Subjective Chief Complaint/HPI Oozing from the operative site. No complaints except for pain at the surgical site. will monitor the hh. Objective Physical Examination General Exam: Positive: Alert, Cooperative, No Acute Distress Eye Exam: Positive: PERRLA, Conjunctiva & lids normal, EOMI; Negative: Sclera icteric ENT Exam: Positive: Atraumatic, Mucous membr. moist/pink, Pharynx Normal Neck Exam: Positive: Supple; Negative: JVD, thyromegaly Chest Exam: Positive: Clear to auscultation, Normal air movement Heart Exam: Positive: Rate Normal, Regular Rhythm, Normal S1, Normal S2; Negative: Murmurs, Rubs Abdomen Exam: Positive: Normal bowel sounds, Soft; Negative: Tenderness, Hepatospenomegaly Extremity Exam: Positive: Normal pulses; Negative: Clubbing, Cyanosis, Edema Assessment /Plan Assessment 70 year old male with advanced right hip osteoarthritis admitted for right total hip replacement. Hospitalist was consulted for management of medical comorbidities. Right total hip replacement for advanced OA pain control ad dvt prophylaxis as per Pt/Ot bowel regimen PT/OT Chronic thrombocytopenia with xarelto for dvt prophylaxis. this could be causing the oozing from the operative site. will monitor hh. Macrocytosis No anemia could be related to alcohol use. Mild hyperbilirubinemia no elevation or transaminases. HTN not on any meds. will continue to monitor in hospital. H/O Asthma says does not use any inhalers or nebs at home no issues at present. Plan/VTE VTE Prophylaxis Ordered?: Yes VS, I&O, 24H, Fishbone Vital Signs/I&O Vital Signs Date Time Temp Pulse Resp B/P (MAP) Pulse Ox O2 Delivery O2 Flow Rate FiO2 12/12/20 10:00 98.7 79 18 175/82 (113) 97 Room Air 12/11/20 22:00 2.0 I&O- Last 24 Hours up to 6 AM 12/12/20 06:00 Intake Total 3540 ml Output Total 500 ml Balance 3040 ml Laboratory Data 24H LABS Laboratory Tests 2 12/12/20 06:45: Nucleated Red Blood Cells % (auto) 0.0, Anion Gap 6L, Glomerular Filtration Rate > 60.0, Calcium Level 8.0L, Total Bilirubin 2.3H, Aspartate Amino Transf ( T/SGOT) 31, Alanine Aminotransferase (ALT/SGPT) 21, Alkaline Phosphatase 70, Total Protein 5.4L, Albumin 2.6L, Albumin/Globulin Ratio 0.9 CBC/BMP Laboratory Tests 12/12/20 06:45 CAMILLE GUSMAN MD Dec 12, 2020 10:38
[2020-12-12 14:00] VITALS: BP 128/63
[2020-12-12] MEDS ORDERED: SODIUM CHLORIDE 0.9% 1000ML IV ONE (14:00)
[2020-12-12 15:11] LABS: BASO % 0.2 % (0.0-1.0); EOS # 0.2 10^3/uL (0.0-0.5); EOS % 2.2 % (0.0-3.0); HEMATOCRIT 32.3 % (42.0-52.0); HEMOGLOBIN 10.7 g/dl (13.5-17.5); LYMPH # 0.8 10^3/uL (1.5-5.0); LYMPH % 9.5 % (24.0-44.0); MEAN CORPUSCULAR HGB CONC 33.1 g/dl (32.0-36.5); MEAN CORPUSCULAR VOLUME 102.5 fl (80.0-96.0); MONO % 12.5 % (2.0-8.0); NEUTROPHILS # 6.1 10^3/uL (1.5-8.5); RED BLOOD COUNT 3.15 10^6/uL (4.30-6.10); WHITE BLOOD COUNT 8.1 10^3/uL (4.0-10.0)
[2020-12-12 15:21] LABS: PLATELET COUNT, AUTOMATED 78 10^3/uL (150-450)
[2020-12-12] MEDS ORDERED: RIVAROXABAN 10 MG TAB (XARELTO) PO SCH (18:00)
[2020-12-12 22:00] VITALS: BP 158/66
[2020-12-13 02:00] VITALS: BP 153/59
[2020-12-13 06:00] VITALS: BP 147/78
[2020-12-13 07:17] LABS: HEMATOCRIT 31.9 % (42.0-52.0); HEMOGLOBIN 10.6 g/dl (13.5-17.5); MEAN CORPUSCULAR HGB CONC 33.2 g/dl (32.0-36.5); MEAN CORPUSCULAR VOLUME 102.2 fl (80.0-96.0); RED BLOOD COUNT 3.12 10^6/uL (4.30-6.10); WHITE BLOOD COUNT 8.1 10^3/uL (4.0-10.0)
[2020-12-13 07:20] LABS: PLATELET COUNT, AUTOMATED 80 10^3/uL (150-450)
[2020-12-13 07:45] LABS: ALBUMIN 2.5 GM/DL (3.2-5.2); ALT/SGPT 21 U/L (12-78); BILIRUBIN,TOTAL 1.9 MG/DL (0.2-1.0); BLOOD UREA NITROGEN 22 MG/DL (7-18); CALCIUM LEVEL 7.9 MG/DL (8.8-10.2); CARBON DIOXIDE LEVEL 28 MEQ/L (21-32); CHLORIDE LEVEL 111 MEQ/L (98-107); CREATININE FOR GFR 0.56 MG/DL (0.70-1.30); GLOMERULAR FILTRATION RATE > 60.0 (>49); GLUCOSE, FASTING 121 MG/DL (70-100); POTASSIUM SERUM 3.8 MEQ/L (3.5-5.1); SODIUM LEVEL 144 MEQ/L (136-145); TOTAL PROTEIN 5.1 GM/DL (6.4-8.2)
[2020-12-13] MEDS: SENOKOT S TAB PO SCH ×2 (08:00→19:48)
[2020-12-13] MEDS: CEPHALEXIN 500 MG CAP PO SCH ×3 (08:00→19:49)
--- NOTE | 2020-12-13 08:51 | IPNPDOC ---
Subjective Date Seen The patient was seen on 12/13/20. Subjective Chief Complaint/HPI Patient continues to have significant amount of bleeding from the surgical site. He needed his dressings changed three [place] [address] so no indication for platelet [place] [address] or lower will transfuse. Hb remains stable. Objective Physical Examination General Exam: Positive: Alert, Cooperative, No Acute Distress Eye Exam: Positive: PERRLA, Conjunctiva & lids normal, EOMI; Negative: Sclera icteric ENT Exam: Positive: Atraumatic, Mucous membr. moist/pink, Pharynx Normal Neck Exam: Positive: Supple; Negative: JVD, thyromegaly Chest Exam: Positive: Clear to auscultation, Normal air movement Heart Exam: Positive: Rate Normal, Regular Rhythm, Normal S1, Normal S2; Negative: Murmurs, Rubs Abdomen Exam: Positive: Normal bowel sounds, Soft; Negative: Tenderness, Hepatospenomegaly Extremity Exam: Positive: Normal pulses; Negative: Clubbing, Cyanosis, Edema Assessment /Plan Assessment 70 year old male with advanced right hip osteoarthritis admitted for right total hip replacement. Hospitalist was consulted for management of medical comorbidities. Right total hip replacement for advanced OA pain control ad dvt prophylaxis as per Pt/Ot Xarelto was not started due to significant amount of bleeding from the surgical site. bowel regimen PT/OT Chronic thrombocytopenia with significant amount of bleeding from the [place] 648[address] so no indication for platelet transfusion. Hb is stable. Macrocytosis No anemia could be related to alcohol use. drinks about 3 vodkas a day. used to be a heavy drinker till 2 years ago when he had cut down. Mild hyperbilirubinemia no elevation or transaminases. HTN not on any meds. will continue to monitor in hospital. H/O Asthma says does not use any inhalers or nebs at home no issues at present. DVT prophylaxis: mechanical. Plan/VTE VTE Prophylaxis Ordered?: Yes VS, I&O, 24H, Fishbone Vital Signs/I&O Vital Signs Date Time Temp Pulse Resp B/P (MAP) Pulse Ox O2 Delivery O2 Flow Rate FiO2 12/13/20 06:00 98.8 81 18 147/78 (101) 94 Room Air 12/11/20 22:00 2.0 I&O- Last 24 Hours up to 6 AM 12/13/20 06:00 Intake Total 1200 ml Balance 1200 ml Laboratory Data 24H LABS Laboratory Tests 2 12/12/20 13:58: Immature Granulocyte % (Auto) 0.6, Neutrophils (%) (Auto) 75.0H, Lymphocytes (%) (Auto) 9.5L, Monocytes (%) (Auto) 12.5H, Eosinophils (%) (Auto) 2.2, Basophils (%) (Auto) 0.2, Neutrophils # (Auto) 6.1, Lymphocytes # (Auto) 0.8L, Monocytes # (Auto) 1.0H, Eosinophils # (Auto) 0.2, Basophils # (Auto) 0.0, Nucleated Red Blood Cells % (auto) 0.0, Immature Platelet Fraction 2.4 12/13/20 06:50: Nucleated Red Blood Cells % (auto) 0.0, Anion Gap 5L, Glomerular Filtration Rate > 60.0, Calcium Level 7.9L, Total Bilirubin 1.9H, Aspartate Amino Transf (AST/SGOT) 32, Alanine Aminotransferase (ALT/SGPT) 21, Alkaline Phosphatase 65, Total Protein 5.1L, Albumin 2.5L, Albumin/Globulin Ratio 1.0 CBC/BMP Laboratory Tests 12/12/20 13:58 12/13/20 06:50 CAMILLE GUSMAN MD Dec 13, 2020 08:50
[2020-12-13] MEDS: PERCOCET 5MG/325MG TAB PO PRN ×2 (13:19→19:49)
[2020-12-13 14:00] VITALS: BP 152/75
[2020-12-13 22:00] VITALS: BP 137/67
[2020-12-14] VITALS (8 sets, daily range): BP systolic 115–172; BP diastolic 56–80
[2020-12-14] MEDS: ACETAMINOPHEN TAB 650MG DOSE (2X325MG) PO PRN (00:15)
[2020-12-14] MEDS: PERCOCET 5MG/325MG TAB PO PRN ×3 (05:59→21:03)
[2020-12-14 07:05] LABS: HEMATOCRIT 28.5 % (42.0-52.0); HEMOGLOBIN 9.5 g/dl (13.5-17.5); MEAN CORPUSCULAR HEMOGLOBIN 34.1 pg (27.0-33.0); MEAN CORPUSCULAR HGB CONC 33.3 g/dl (32.0-36.5); MEAN CORPUSCULAR VOLUME 102.2 fl (80.0-96.0); PLATELET COUNT, AUTOMATED 72 10^3/uL (150-450); RED BLOOD COUNT 2.79 10^6/uL (4.30-6.10); WHITE BLOOD COUNT 5.7 10^3/uL (4.0-10.0)
[2020-12-14 07:29] LABS: ALBUMIN 2.3 GM/DL (3.2-5.2); ALT/SGPT 19 U/L (12-78); BILIRUBIN,TOTAL 1.8 MG/DL (0.2-1.0); BLOOD UREA NITROGEN 20 MG/DL (7-18); CALCIUM LEVEL 7.8 MG/DL (8.8-10.2); CARBON DIOXIDE LEVEL 27 MEQ/L (21-32); CHLORIDE LEVEL 110 MEQ/L (98-107); CREATININE FOR GFR 0.61 MG/DL (0.70-1.30); GLOMERULAR FILTRATION RATE > 60.0 (>49); GLUCOSE, FASTING 139 MG/DL (70-100); POTASSIUM SERUM 3.3 MEQ/L (3.5-5.1); SODIUM LEVEL 141 MEQ/L (136-145); TOTAL PROTEIN 4.8 GM/DL (6.4-8.2)
[2020-12-14] MEDS ORDERED: POTASSIUM CHLORIDE 10 MEQ SR TABLET PO ONE (09:00)
[2020-12-14] MEDS: SENOKOT S TAB PO SCH ×2 (09:00→21:02)
[2020-12-14] MEDS: CEPHALEXIN 500 MG CAP PO SCH ×3 (09:29→21:02)
[2020-12-14] MEDS ORDERED: FUROSEMIDE 40MG/4ML VIAL (J1940) IV ONE (10:35)
--- NOTE | 2020-12-14 10:40 | IPNPDOC ---
Subjective Date Seen The patient was seen on 12/14/20. Subjective Chief Complaint/HPI Reports just feels tired. His oozing has slowed down considerably. Pain is controlled. Objective Physical Examination General Exam: Positive: Alert, Cooperative, No Acute Distress Eye Exam: Positive: PERRLA, Conjunctiva & lids normal, EOMI; Negative: Sclera icteric ENT Exam: Positive: Atraumatic, Mucous membr. moist/pink, Pharynx Normal Neck Exam: Positive: Supple; Negative: JVD, thyromegaly Chest Exam: Positive: Clear to auscultation, Normal air movement Heart Exam: Positive: Rate Normal, Regular Rhythm, Normal S1, Normal S2; Negative: Murmurs, Rubs Abdomen Exam: Positive: Normal bowel sounds, Soft; Negative: Tenderness, Hepatospenomegaly Extremity Exam: Positive: Edema, Other (surgival dressing with bring red blood soaking through); Negative: Clubbing, Cyanosis Assessment /Plan Assessment 70 year old male with advanced right hip osteoarthritis admitted for right total hip replacement. Hospitalist was consulted for management of medical comorbidities. Right total hip replacement for advanced OA pain control ad dvt prophylaxis as per Pt/Ot Xarelto was not started due to significant amount of bleeding from the surgical site. bowel regimen PT/OT Chronic thrombocytopenia with significant amount of bleeding from the operative site Received 1 unit of platelet. Platelet agin downtrending and patient continues to Ooze from the operative site. will give another unit of platelet. Hb has downtrended from 16 to 9.5 Macrocytosis No anemia could be related to alcohol use. drinks about 3 vodkas a day. used to be a heavy drinker till 2 years ago when he had cut down. Mild hyperbilirubinemia no elevation or transaminases. HTN not on any meds. will continue to monitor in hospital. H/O Asthma says does not use any inhalers or nebs at home no issues at present. DVT prophylaxis: mechanical. Plan/VTE VTE Prophylaxis Ordered?: Yes VS, I&O, 24H, Fishbone Vital Signs/I&O Vital Signs Date Time Temp Pulse Resp B/P (MAP) Pulse Ox O2 Delivery O2 Flow Rate FiO2 12/14/20 06:29 16 12/14/20 06:00 99.0 69 150/80 (103) 93 Room Air 3/15/21 22:00 2.0 I&O- Last 24 Hours up to 6 AM 12/14/20 06:00 Intake Total 1650 ml Balance 1650 ml Laboratory Data 24H LABS Laboratory Tests 2 12/14/20 06:39: Nucleated Red Blood Cells % (auto) 0.0, Immature Platelet Fraction 2.3, Anion Ga p 4L, Glomerular Filtration Rate > 60.0, Calcium Level 7.8L, Total Bilirubin 1.8H, Aspartate Amino Transf (AST/SGOT) 35, Alanine Aminotransferase (ALT/SGPT) 19, Alkaline Phosphatase 60, Total Protein 4.8L, Albumin 2.3L, Albumin/Globulin Ratio 0.9 CBC/BMP Laboratory Tests 12/14/20 06:39 CAMILLE GUSMAN MD Dec 14, 2020 10:39
[2020-12-15 06:00] VITALS: BP 120/53
[2020-12-15] MEDS: PERCOCET 5MG/325MG TAB PO PRN ×3 (06:04→19:37)
[2020-12-15 06:45] LABS: HEMOGLOBIN 9.9 g/dl (13.5-17.5); MEAN CORPUSCULAR HEMOGLOBIN 34.1 pg (27.0-33.0); MEAN CORPUSCULAR HGB CONC 34.1 g/dl (32.0-36.5); PLATELET COUNT, AUTOMATED 100 10^3/uL (150-450); WHITE BLOOD COUNT 6.3 10^3/uL (4.0-10.0)
[2020-12-15 07:18] LABS: ALBUMIN 2.6 GM/DL (3.2-5.2); ALT/SGPT 25 U/L (12-78); BILIRUBIN,TOTAL 2.1 MG/DL (0.2-1.0); BLOOD UREA NITROGEN 17 MG/DL (7-18); CARBON DIOXIDE LEVEL 28 MEQ/L (21-32); CHLORIDE LEVEL 110 MEQ/L (98-107); CREATININE FOR GFR 0.68 MG/DL (0.70-1.30); GLOMERULAR FILTRATION RATE > 60.0 (>49); GLUCOSE, FASTING 104 MG/DL (70-100); POTASSIUM SERUM 3.7 MEQ/L (3.5-5.1); SODIUM LEVEL 142 MEQ/L (136-145); TOTAL PROTEIN 5.2 GM/DL (6.4-8.2)
[2020-12-15] MEDS: CEPHALEXIN 500 MG CAP PO SCH ×3 (08:50→19:37)
[2020-12-15] MEDS: SENOKOT S TAB PO SCH ×2 (08:50→19:37)
--- NOTE | 2020-12-15 11:09 | IPNPDOC ---
Subjective Date Seen The patient was seen on 12/15/20. Subjective Chief Complaint/HPI Oozing has almost stopped. There was a little soakage in the dressing overnight. No fever or chills. Objective Physical Examination General Exam: Positive: Alert, Cooperative, No Acute Distress Eye Exam: Positive: PERRLA, Conjunctiva & lids normal, EOMI; Negative: Sclera icteric ENT Exam: Positive: Atraumatic, Mucous membr. moist/pink, Pharynx Normal Neck Exam: Positive: Supple; Negative: JVD, thyromegaly Chest Exam: Positive: Clear to auscultation, Normal air movement Heart Exam: Positive: Rate Normal, Regular Rhythm, Normal S1, Normal S2; Negative: Murmurs, Rubs Abdomen Exam: Positive: Normal bowel sounds, Soft; Negative: Tenderness, Hepatospenomegaly Extremity Exam: Positive: Edema, Other (surgival dressing with bring red blood soaking through); Negative: Clubbing, Cyanosis Assessment /Plan Assessment 70 year old male with advanced right hip osteoarthritis admitted for right total hip replacement. Hospitalist was consulted for management of medical comorbidities. Right total hip replacement for advanced OA pain control ad dvt prophylaxis as per Pt/Ot bowel regimen PT/OT Chronic thrombocytopenia with significant amount of bleeding from the operative site Hb has downtrended from 16 to 9.5 received 2 units of platelets Macrocytosis No anemia related to chronic alcohol use. drinks about 3 vodkas a day. used to be a heavy drinker till 2 years ago when he had cut down. Mild hyperbilirubinemia no elevation or transaminases. HTN not on any meds. will continue to monitor in hospital. H/O Asthma says does not use any inhalers or nebs at home no issues at present. DVT prophylaxis: mechanical. Plan/VTE VTE Prophylaxis Ordered?: Yes VS, I&O, 24H, Fishbone Vital Signs/I&O Vital Signs Date Time Temp Pulse Resp B/P (MAP) Pulse Ox O2 Delivery O2 Flow Rate FiO2 12/15/20 06:34 15 12/15/20 06:00 98.8 62 120/53 (75) 96 Room Air 12/14/20 19:00 96 12/11/20 22:00 2.0 I&O- Last 24 Hours up to 6 AM 12/15/20 06:00 Intake Total 1360 ml Output Total 0 ml Balance 1360 ml Laboratory Data 24H LABS Laboratory Tests 2 12/15/20 06:29: Nucleated Red Blood Cells % (auto) 0.0, Anion Gap 4L, Glomerular Filtration Rate > 60.0, Calcium Level 8.0L, Total Bilirubin 2.1H, Aspartate Amino Transf (AST/SGOT) 46H, Alanine Aminotransferase (ALT/SGPT) 25, Alkaline Phosphatase 69, Total Protein 5.2L, Albumin 2.6L, Albumin/Globulin Ratio 1.0 CBC/BMP Laboratory Tests 12/15/20 06:29 CAMILLE GUSMAN MD Dec 15, 2020 11:09
[2020-12-15] MEDS ORDERED: FUROSEMIDE 40MG/4ML VIAL (J1940) IV ONE (11:15)
[2020-12-15 14:00] VITALS: BP 121/72
[2020-12-15] MEDS: diphenhydrAMINE 25MG CAP PO PRN (20:10)
[2020-12-15 22:00] VITALS: BP 120/47
[2020-12-16] VITALS (9 sets, daily range): BP systolic 127–161; BP diastolic 55–85
[2020-12-16] MEDS: PERCOCET 5MG/325MG TAB PO PRN ×2 (04:24→20:38)
[2020-12-16 07:23] LABS: HEMATOCRIT 30.3 % (42.0-52.0); HEMOGLOBIN 10.2 g/dl (13.5-17.5); MEAN CORPUSCULAR HEMOGLOBIN 34.2 pg (27.0-33.0); MEAN CORPUSCULAR HGB CONC 33.7 g/dl (32.0-36.5); MEAN CORPUSCULAR VOLUME 101.7 fl (80.0-96.0); PLATELET COUNT, AUTOMATED 111 10^3/uL (150-450); RED BLOOD COUNT 2.98 10^6/uL (4.30-6.10); WHITE BLOOD COUNT 6.1 10^3/uL (4.0-10.0)
[2020-12-16 07:46] LABS: ALBUMIN 2.7 GM/DL (3.2-5.2); ALT/SGPT 29 U/L (12-78); BILIRUBIN,TOTAL 2.6 MG/DL (0.2-1.0); BLOOD UREA NITROGEN 18 MG/DL (7-18); CALCIUM LEVEL 7.9 MG/DL (8.8-10.2); CARBON DIOXIDE LEVEL 29 MEQ/L (21-32); CHLORIDE LEVEL 109 MEQ/L (98-107); CREATININE FOR GFR 0.66 MG/DL (0.70-1.30); GLOMERULAR FILTRATION RATE > 60.0 (>49); GLUCOSE, FASTING 103 MG/DL (70-100); POTASSIUM SERUM 3.3 MEQ/L (3.5-5.1); SODIUM LEVEL 143 MEQ/L (136-145); TOTAL PROTEIN 5.5 GM/DL (6.4-8.2)
[2020-12-16] MEDS: CEPHALEXIN 500 MG CAP PO SCH (08:18)
[2020-12-16] MEDS: SENOKOT S TAB PO SCH ×2 (08:18→20:38)
--- NOTE | 2020-12-16 10:33 | IPNPDOC ---
Subjective Date Seen The patient was seen on 12/16/20. Subjective Chief Complaint/HPI Continues to have soakage in the dressing though much less than initially. Dr Huffman will be taking him to the OR for a look and washout. Pateint does not offer any complaints. His leg swelling has improved. Objective Physical Examination General Exam: Positive: Alert, Cooperative, No Acute Distress Eye Exam: Positive: PERRLA, Conjunctiva & lids normal, EOMI; Negative: Sclera icteric ENT Exam: Positive: Atraumatic, Mucous membr. moist/pink, Pharynx Normal Neck Exam: Positive: Supple; Negative: JVD, thyromegaly Chest Exam: Positive: Clear to auscultation, Normal air movement Heart Exam: Positive: Rate Normal, Regular Rhythm, Normal S1, Normal S2; Negative: Murmurs, Rubs Abdomen Exam: Positive: Normal bowel sounds, Soft; Negative: Tenderness, Hepatospenomegaly Extremity Exam: Positive: Edema, Other (surgival dressing with bring red blood soaking through); Negative: Clubbing, Cyanosis Assessment /Plan Assessment 70 year old male with advanced right hip osteoarthritis admitted for right total hip replacement. Hospitalist was consulted for management of medical comorbidities. Right total hip replacement for advanced OA pain control ad dvt prophylaxis as per Pt/Ot bowel regimen PT/OT Chronic thrombocytopenia with significant amount of bleeding from the operative site Hb has downtrended from 16 to 9.5 received 2 units of platelets going back to OR with Dr Newman. Macrocytosis likely related to chronic alcohol use. drinks about 3 vodkas a day. used to be a heavy drinker till 2 years ago when he had cut down. Mild hyperbilirubinemia no elevation or transaminases. HTN not on any meds. will continue to monitor in hospital. H/O Asthma says does not use any inhalers or nebs at home no issues at present. DVT prophylaxis: mechanical. Plan/VTE VTE Prophylaxis Ordered?: Yes VS, I&O, 24H, Fishbone Vital Signs/I&O Vital Signs Date Time Temp Pulse Resp B/P (MAP) Pulse Ox O2 Delivery O2 Flow Rate FiO2 12/16/20 06:17 Room Air 12/14/20 19:00 96 12/11/20 22:00 2.0 I&O- Last 24 Hours up to 6 AM 12/16/20 06:00 Intake Total 2580 ml Output Total 0 ml Balance 2580 ml Laboratory Data 24H LABS Laboratory Tests 2 12/16/20 06:31: Nucleated Red Blood Cells % (auto) 0.0, Anion Gap 5L, Glomerular Filtration Rate > 60.0, Calcium Level 7.9L, Total Bilirubin 2.6H, Aspartate Amino Transf (AST/SGOT) 43H, Alanine Aminotransferase (ALT/SGPT) 29, Alkaline Phosphatase 78, Total Protein 5.5L, Albumin 2.7L, Albumin/Globulin Ratio 1.0 CBC/BMP Laboratory Tests 12/16/20 06:31 CAMILLE GUSMAN MD Dec 16, 2020 10:33
[2020-12-16] MEDS ORDERED: POTASSIUM CHLORIDE 10 MEQ SR TABLET PO ONE (11:00)
[2020-12-16] MEDS ORDERED: LIDOCAINE 2% 100MG/5ML SDV (FOR ANES.) As Ordered ONE (11:11)
[2020-12-16] MEDS ORDERED: fentaNYL 250 MCG/5 ML INJECTION (J3010) As Ordered ONE (11:11)
[2020-12-16] MEDS ORDERED: ROCURONIUM BROMIDE 50 MG/5 ML VIAL As Ordered ONE (11:11)
[2020-12-16] MEDS ORDERED: propofoL 200 MG/20 ML VIAL As Ordered ONE (11:11)
[2020-12-16] MEDS ORDERED: MIDAZOLAM INJ 2MG/2ML VIAL (J2250 PER 1MG) As Ordered ONE ×2 (11:12→14:07)
[2020-12-16] MEDS ORDERED: ceFAZolin 1GM VIAL (J0690 PER 500MG) As Ordered ONE (11:16)
[2020-12-16] MEDS ORDERED: ceFAZolin 2 GM/D5W 50 ML IV BAG (J0690 PER 500MG) As Ordered ONE (11:58)
[2020-12-16 11:59] LABS: C REACTIVE PROTEIN QUANTITATIV 3.59 MG/DL (0.00-0.30)
[2020-12-16] MEDS ORDERED: TRANEXAMIC ACID 100 MG/ML 10ML VIAL As Ordered ONE ×2 (12:10→13:12)
[2020-12-16 12:16] LABS: ERYTHROCYTE SEDIMENTATION RATE 31 mm/hr (0-20)
[2020-12-16] MEDS ORDERED: VANCOMYCIN 1000MG/20ML VIAL As Ordered ONE (12:20)
[2020-12-16] MEDS ORDERED: TOBRAMYCIN SULF 1.2 GM VIAL As Ordered ONE (12:21)
[2020-12-16] MEDS ORDERED: HYDROmorphone HCL 2 MG/ML 1ML VIAL (J1170) As Ordered ONE (12:47)
[2020-12-16] MEDS ORDERED: ONDANSETRON 4MG/2ML VIAL As Ordered ONE (12:54)
[2020-12-16] MEDS ORDERED: dexameTHASONE 4 MG/ML 1ML VIAL (J1100 PER 1MG) As Ordered ONE (12:54)
[2020-12-16] MEDS ORDERED: ACETAMINOPHEN 1000MG 100ML IV BTL (OFIRMEV) (J0131 PER 10MG) As Ordered ONE (12:54)
[2020-12-16] MEDS ORDERED: KETOROLAC 60MG 2ML VIAL As Ordered ONE (12:54)
[2020-12-16] MEDS ORDERED: SUGAMMADEX SODIUM 500 MG/5 ML VIAL (BRIDION) As Ordered ONE (13:04)
[2020-12-16] MEDS ORDERED: fentaNYL 100 MCG/2 ML INJECTION (J3010) As Ordered ONE (14:21)
[2020-12-16] MEDS: fentaNYL 100 MCG/2 ML INJECTION (J3010) IV PRN ×4 (14:23→14:51)
[2020-12-16] MEDS ORDERED: ONDANSETRON 4MG/2ML VIAL IV PRN (14:30)
[2020-12-16] MEDS ORDERED: LR 1,000 ML IV SCH ×2 (14:30→15:10)
[2020-12-16] MEDS ORDERED: MIDAZOLAM INJ 2MG/2ML VIAL (J2250 PER 1MG) IV PRN (14:30)
[2020-12-16] MEDS: oxyCODONE 5MG TAB PO PRN ×2 (14:39→15:22)
[2020-12-16] MEDS: MORPHINE 2 MG/ML 1ML VIAL (J2270) IV PRN ×2 (15:04→15:21)
[2020-12-16] MEDS: VANCOMYCIN HCL 1,000 MG, VIAL MATE ADAPTER 1 EACH in NS 250 ML IV SCH (18:00)
[2020-12-16] MEDS: diphenhydrAMINE 25MG CAP PO PRN (21:52)
[2020-12-17] MEDS: MORPHINE 4 MG/ML 1ML VIAL/SYRINGE (J2270) IV PRN ×2 (01:12→19:14)
[2020-12-17 02:00] VITALS: BP 127/68
[2020-12-17] MEDS: VANCOMYCIN HCL 1,000 MG, VIAL MATE ADAPTER 1 EACH in NS 250 ML IV SCH ×2 (05:07→16:04)
[2020-12-17] MEDS: PERCOCET 5MG/325MG TAB PO PRN ×3 (05:08→17:24)
[2020-12-17 06:00] VITALS: BP 134/67
[2020-12-17 07:09] LABS: HEMATOCRIT 25.6 % (42.0-52.0); HEMOGLOBIN 8.4 g/dl (13.5-17.5); MEAN CORPUSCULAR HEMOGLOBIN 33.9 pg (27.0-33.0); MEAN CORPUSCULAR HGB CONC 32.8 g/dl (32.0-36.5); MEAN CORPUSCULAR VOLUME 103.2 fl (80.0-96.0); RED BLOOD COUNT 2.48 10^6/uL (4.30-6.10); WHITE BLOOD COUNT 6.9 10^3/uL (4.0-10.0)
[2020-12-17 07:36] LABS: INR 1.35
[2020-12-17 07:37] LABS: PARTIAL THROMBOPLASTIN TIME 34.5 SECONDS (24.2-38.5)
[2020-12-17 07:45] LABS: ALBUMIN 2.2 GM/DL (3.2-5.2); ALT/SGPT 21 U/L (12-78); BILIRUBIN,TOTAL 1.8 MG/DL (0.2-1.0); BLOOD UREA NITROGEN 19 MG/DL (7-18); C REACTIVE PROTEIN QUANTITATIV 3.84 MG/DL (0.00-0.30); CALCIUM LEVEL 7.9 MG/DL (8.8-10.2); CARBON DIOXIDE LEVEL 27 MEQ/L (21-32); CHLORIDE LEVEL 105 MEQ/L (98-107); CREATININE FOR GFR 0.72 MG/DL (0.70-1.30); GLOMERULAR FILTRATION RATE > 60.0 (>49); GLUCOSE, FASTING 225 MG/DL (70-100); PLATELET COUNT, AUTOMATED 77 10^3/uL (150-450); SODIUM LEVEL 138 MEQ/L (136-145); TOTAL PROTEIN 4.6 GM/DL (6.4-8.2)
[2020-12-17 07:52] LABS: ERYTHROCYTE SEDIMENTATION RATE 39 mm/hr (0-20)
[2020-12-17] MEDS: SENOKOT S TAB PO SCH ×2 (08:15→20:09)
[2020-12-17 10:00] VITALS: BP 111/93
--- NOTE | 2020-12-17 10:36 | IPNPDOC ---
Subjective Date Seen The patient was seen on 12/17/20. Subjective Chief Complaint/HPI No complaints this morning. Dressing is clean. Has a drain and a wound vac at the right hip joint. Objective Physical Examination General Exam: Positive: Alert, Cooperative, No Acute Distress Eye Exam: Positive: PERRLA, Conjunctiva & lids normal, EOMI; Negative: Sclera icteric ENT Exam: Positive: Atraumatic, Mucous membr. moist/pink, Pharynx Normal Neck Exam: Positive: Supple; Negative: JVD, thyromegaly Chest Exam: Positive: Clear to auscultation, Normal air movement Heart Exam: Positive: Rate Normal, Regular Rhythm, Normal S1, Normal S2; Negative: Murmurs, Rubs Abdomen Exam: Positive: Normal bowel sounds, Soft; Negative: Tenderness, Hepatospenomegaly Extremity Exam: Positive: Edema, Other (surgival dressing with bring red blood soaking through); Negative: Clubbing, Cyanosis Assessment /Plan Assessment 70 year old male with advanced right hip osteoarthritis admitted for right total hip replacement. Hospitalist was consulted for management of medical comorbidities. Right total hip replacement on 12/11/20 complicated by postoperative bleeding went back to OR on 12/16/20 had joint wash out, change of part of prosthesis, drain placement and wound vac placement placed on prophylactic vancomycin ID consulted. bowel regimen PT/OT Chronic thrombocytopenia with significant amount of bleeding from the operative site Hb has downtrended from 16, now at 8.5 received 2 units of platelets Will consult hematology Macrocytosis likely related to chronic alcohol use. drinks about 3 vodkas a day. used to be a heavy drinker till 2 years ago when he had cut down. Mild hyperbilirubinemia no elevation or transaminases. HTN not on any meds. will continue to monitor in hospital. H/O Asthma says does not use any inhalers or nebs at home no issues at present. DVT prophylaxis: mechanical. Plan/VTE VTE Prophylaxis Ordered?: Yes VS, I&O, 24H, Fishbone Vital Signs/I&O Vital Signs Date Time Temp Pulse Resp B/P (MAP) Pulse Ox O2 Delivery O2 Flow Rate FiO2 12/17/20 10:00 98.9 79 19 111/93 (99) 99 Room Air 12/16/20 16:15 2.0 12/14/20 19:00 96 I&O- Last 24 Hours up to 6 AM 12/17/20 06:00 Intake Total 4120 ml Output Total 805 ml Balance 3315 ml Laboratory Data 24H LABS Laboratory Tests 2 12/17/20 06:19: Nucleated Red Blood Cells % (auto) 0.0, Immature Platelet Fraction 2.7, Erythrocyte Sedimentation Rate 39H, Prothrombin Time 17.0H, Prothromb Time International Ratio 1.35, Activated Partial Thromboplast Time 34.5, Anion Gap 6L, Glomerular Filtration Rate > 60.0, Calcium Level 7.9L, Total Bilirubin 1.8H, Aspartate Amino Transf (AST/SGOT) 32, Alanine Aminotransferase (ALT/SGPT) 21, Alkaline Phosphatase 63, C-Reactive Protein, Quantitative 3.84H, Total Protein 4.6L, Albumin 2.2L, Albumin/Globulin Ratio 0.9 CBC/BMP Laboratory Tests 12/17/20 06:19 Microbiology Microbiology 12/16/20 Gram Stain - Final, Resulted 12/16/20 Surgical Biopsy Culture, Resulted Pending 12/16/20 Anaerobic Culture, Resulted Pending CAMILLE GUSMAN MD Dec 17, 2020 10:35
[2020-12-17 14:00] VITALS: BP 139/57
[2020-12-17] MEDS ORDERED: OXAZEPAM 10 MG CAP PO ONE (15:00)
--- NOTE | 2020-12-17 19:59 | REPVR ---
PROCEDURE INFORMATION: Exam: US Abdomen Complete Exam date and time: 12/17/2020 7:41 PM Age: 70 years old Clinical indication: Condition or disease; Liver condition and spleen condition; Splenomegaly; Cirrhosis; Alcoholic; Additional info: Splenomegaly / cirrhosis TECHNIQUE: Imaging protocol: Real-time ultrasound of the abdomen with image documentation. COMPARISON: No relevant prior studies available. FINDINGS: Liver: Coarse hepatic texture in reduced hepatic volume, findings consistent with reported history of cirrhosis. No focal abnormality demonstrated. Gallbladder: Not clearly visualized in this patient with no reported history of prior cholecystectomy. Is possible that the gallbladder is filled with cysts sludge and calculi based on sonographic appearance. Common bile duct: The common bile duct measures 6.5 mm. No mass or choledocholithiasis. Pancreas: Pancreas obscured by overlying bowel gas. Right kidney: Right kidney measures 12.6 x 6.8 x 6.8 cm. Left kidney: Left kidney measures 14.8 x 6.5 x 5.8 cm. Spleen: There is mild splenomegaly with a maximum span of 14.5 centimeters. No focal abnormalities demonstrated. Aorta: Obscured by overlying bowel gas. Inferior vena cava: Normal. IMPRESSION: 1. There is mild splenomegaly with a maximum span of 14.5 centimeters. No focal abnormalities demonstrated. 2. Coarse hepatic texture in reduced hepatic volume, findings consistent with reported history of cirrhosis. No focal abnormality demonstrated. 3. Gallbladder not well visualized as described above. Gallbladder may be filled with sludge and calculi. Electronically signed by: Ismael Orourke On 12/17/2020 19:59:30 PM
[2020-12-17 20:00] VITALS: BP 132/55
[2020-12-17] MEDS: LORazepam 2 MG TAB PO PRN (20:09)
[2020-12-17] MEDS: diphenhydrAMINE 25MG CAP PO PRN (20:09)
[2020-12-17] MEDS: THIAMINE 100 MG TAB PO SCH (20:09)
[2020-12-17 22:00] VITALS: BP 142/64
[2020-12-18] VITALS: BP 142/68
[2020-12-18] MEDS: PERCOCET 5MG/325MG TAB PO PRN ×4 (01:04→21:04)
[2020-12-18 04:00] VITALS: BP 131/57
[2020-12-18] MEDS: MORPHINE 4 MG/ML 1ML VIAL/SYRINGE (J2270) IV PRN (04:15)
[2020-12-18] MEDS: VANCOMYCIN HCL 1,000 MG, VIAL MATE ADAPTER 1 EACH in NS 250 ML IV SCH ×4 (05:37→22:23)
[2020-12-18 06:00] VITALS: BP 131/57
[2020-12-18 06:54] LABS: HEMATOCRIT 25.7 % (42.0-52.0); HEMOGLOBIN 8.3 g/dl (13.5-17.5); MEAN CORPUSCULAR HGB CONC 32.3 g/dl (32.0-36.5); MEAN CORPUSCULAR VOLUME 105.3 fl (80.0-96.0); RED BLOOD COUNT 2.44 10^6/uL (4.30-6.10); WHITE BLOOD COUNT 5.9 10^3/uL (4.0-10.0)
[2020-12-18 06:58] LABS: PLATELET COUNT, AUTOMATED 77 10^3/uL (150-450)
[2020-12-18 07:26] LABS: ALBUMIN 2.2 GM/DL (3.2-5.2); ALT/SGPT 27 U/L (12-78); BILIRUBIN,TOTAL 1.5 MG/DL (0.2-1.0); BLOOD UREA NITROGEN 21 MG/DL (7-18); C REACTIVE PROTEIN QUANTITATIV 2.33 MG/DL (0.00-0.30); CALCIUM LEVEL 8.4 MG/DL (8.8-10.2); CARBON DIOXIDE LEVEL 28 MEQ/L (21-32); CHLORIDE LEVEL 108 MEQ/L (98-107); GLOMERULAR FILTRATION RATE > 60.0 (>49); GLUCOSE, FASTING 145 MG/DL (70-100); POTASSIUM SERUM 3.9 MEQ/L (3.5-5.1); SODIUM LEVEL 141 MEQ/L (136-145); TOTAL PROTEIN 4.8 GM/DL (6.4-8.2)
[2020-12-18 07:32] LABS: ERYTHROCYTE SEDIMENTATION RATE 34 mm/hr (0-20)
[2020-12-18] MEDS: FOLIC ACID 1 MG TAB PO SCH (07:52)
[2020-12-18] MEDS: MULTIVITAMINS/MINERALS THERAP 1 TAB PO SCH (07:52)
[2020-12-18] MEDS: SENOKOT S TAB PO SCH ×2 (07:52→21:03)
[2020-12-18] MEDS: THIAMINE 100 MG TAB PO SCH ×2 (07:53→21:03)
[2020-12-18 08:00] VITALS: BP 140/62
[2020-12-18] MEDS ORDERED: VANCOMYCIN HCL 500 MG in D5W MINI-BAG PLUS 100 ML IV ONE (09:00)
[2020-12-18] MEDS: diphenhydrAMINE 25MG CAP PO PRN (09:40)
--- NOTE | 2020-12-18 09:44 | RO ---
OPERATIVE NOTE DATE OF OPERATION: 12/16/2020 PREOPERATIVE DIAGNOSIS: Persistently draining right hip wound, status post right total hip arthroplasty. POSTOPERATIVE DIAGNOSIS: Persistently draining right hip wound, status post right total hip arthroplasty. PROCEDURE: 1. Right hip irrigation and debridement. 2. Right hip exchange arthroplasty of the femoral head in a polyethylene acetabular liner. 3. Insertion of antibiotic beads. 4. Application of Prevena wound VAC. SURGEON: Dana Gross M.D. CALL PERSON: ANESTHESIA: SPECIMENS: Cultures. COMPLICATIONS: None. ESTIMATED BLOOD LOSS: 100 mL FINDINGS: He had essentially a dehiscence with a large watery hematoma that extended down through where the dehiscence was noted in IT band in distal portion of the wound and extended down into the joint just anterior to the greater trochanter. There is no gross purulence noted, only foul-smelling fluid. It had the appearance of a watery hematoma but we decided to treat this as if it were an infection. PROCEDURE: He was on oral Keflex but 2 gm of Kefzol were given preoperatively and then a general endotracheal tube anesthetic was established and he was placed in lateral decubitus position with his down leg well padded. The right hip was uppermost. The peroneal nerve was also protected. An axillary roll utilized. Dressing removed and the piil were removed. A copious amount of purplish, reddish, watery fluid emanated from the wound as I removed the pili. The right hip was then carefully prepped and draped in the usual sterile fashion and after appropriate timeout, I then opened the wound, removed all the deep 2-0 PDS sutures. I noted that the IT band distally, there was a small dehiscence and by finger dissection, I could palpate that that would go down to the greater trochanter and not into the joint. Thus, I opened the IT band and removed all the Stratafix and PDS sutures meticulously one-by-one to remove all foreign material and then I removed the #1 PDS sutures that were used to close the capsule and hip abductors. Pulsatile lavage irrigant solution was utilized at this point to copiously irrigate all the soft tissues. I then dislocated the hip anteriorly, then removed the femoral head. I then took time to manipulate around the stem at the neck of the prosthesis to remove the polyethylene liner using the polyethylene liner extractor. Eventually, I was able to get that done. Then I pulsatile lavage irrigated out the acetabular cup and I also curetted around the proximal portion of the femoral stem and then once a meticulous amount of scrubbing and cleaning had been done, I then used some Betadine to also cleanse the depths of the acetabular cup and the femoral stem, especially around the neck of the stem. Then after that, we used hydrogen peroxide into the wound and it foamed significantly to help scrub the tissues throughout the hip joint. I repeated that procedure by irrigating Betadine and hydrogen peroxide. I then again copiously irrigated and while I was doing this, I did ask the aviation maintenance technician to mix the antibiotic beads with assistance of the company veterans employment representative. Basically, vancomycin beads were made on the back table. Once they had all been completely made, I then turned attention back to replacing the polyethylene liner first. The new liner was carefully placed back into the acetabular cup and I made sure that the tines were well appropriated and used the impactor device to reinsert the new polyethylene. I palpated with a [place] elevator that it well seated. I then dried the trunion of the femoral stem and placed the new cobalt chrome femoral head the same size that we had removed. I then reduced the hip. I copiously pulsatile lavaged and irrigated the hip again and then I placed antibiotic beads in the depths of the wound. I then closed the anterior hip capsule and the gluteus minimus back anatomically with interrupted #1 PDS sutures. I attempted to close most of the gluteus medius that I could but the tissues were very friable. I was able to get a reasonable watertight closure and closure extended down to the vastus lateralis. I irrigated again between layers and then placed more antibiotic beads and then began closing the IT band using a combination of #1 PDS sutures and then a running #1 Stratafix. I irrigated again. I did place tranexamic acid in the depths of the wound prior to closure of the IT band and waited three minutes before beginning closure of the IT band. I then placed more tranexamic acid in the superficial tissues. I then closed the deep subdermal tissues in two layers with interrupted 2-0 PDS sutures to remove any space and then the skin was closed with pili. Pulsatile lavage irrigated once again and the skin was dried. I did place a drain deep into the hip joint exiting out underneath the IT band distally prior to placement of the antibiotic beads. On the way out as I sutured, I made sure that the drain was free from the capture of any of the sutures. I then covered the staple line with a Prevena wound VAC dressing, had excellent suction and then the drain was sutured in with a silk suture and the patient was awakened from general endotracheal tube anesthesia after having tolerated the procedure well, then transferred to the recovery room in stable condition. There were no intraoperative complications.
--- NOTE | 2020-12-18 10:25 | IPNPDOC ---
Subjective Date Seen The patient was seen on 12/18/20. Subjective Chief Complaint/HPI Patient very belligerent this morning. When i tried to talk about his alcohol usage, his ultrasound results and that he is probably going through alcohol withdrawal he became belligerent saying " Don't lecture me". "Get out of my Room". He has been having behavioral issues since yesterday. Unfortunately he did not want to talk any more. He did allow a physical exam. Objective Physical Examination General Exam: Positive: Alert, No Acute Distress Eye Exam: Positive: PERRLA, Conjunctiva & lids normal, EOMI; Negative: Sclera icteric ENT Exam: Positive: Atraumatic, Mucous membr. moist/pink, Pharynx Normal Neck Exam: Positive: Supple; Negative: JVD, thyromegaly Chest Exam: Positive: Clear to auscultation, Normal air movement Heart Exam: Positive: Rate Normal, Regular Rhythm, Normal S1, Normal S2 Abdomen Exam: Positive: Normal bowel sounds, Soft; Negative: Tenderness, Hepatospenomegaly Extremity Exam: Positive: Other (JESSY drain still draining pink colored fluid, No drainage in the wound vac. Dressing is dry.); Negative: Clubbing, Cyanosis Assessment /Plan Assessment 70 year old male with h/o alcohol abuse, chronic thrombocytopenia, advanced right hip osteoarthritis admitted for right total hip replacement. Hospitalist was consulted for management of medical comorbidities. Right total hip replacement on 12/11/20 complicated by postoperative bleeding and persistent drainage from the surgical site. Went back to OR on 12/16/20 had Right hip irrigation and debridement, Right hip exchange arthroplasty of the femoral head in a polyethylene acetabular liner, Insertion of antibiotic beads, Application of Prevena wound VAC. placed on prophylactic vancomycin ID consulted by Dr Gleason bowel regimen PT/OT as per ortho Alcohol withdrawal Patient has been very belligerent, screaming at the staff, refusing tests from 12/17/20. Son reports that he drinks a lot more than 3 drinks a day. Serax seemed to calm him down. placed on CIWA protocol. Cirrhosis of Liver as seen in US with mild splenomegaly on 14.5 alcoholic this is why he has chronic thrombocytopenia and excessive bleeding after jasmyne dre. Chronic thrombocytopenia due to cirrhosis of liver. with significant amount of bleeding from the operative site Hb has downtrended from 16, now at 8.5 received 2 units of platelets Macrocytosis likely related to chronic alcohol use. Mild hyperbilirubinemia no elevation or transaminases. HTN not on any meds. will continue to monitor in hospital. H/O Asthma says does not use any inhalers or nebs at home no issues at present. DVT prophylaxis: mechanical. Plan/VTE VTE Prophylaxis Ordered?: Yes VS, I&O, 24H, Fishbone Vital Signs/I&O Vital Signs Date Time Temp Pulse Resp B/P (MAP) Pulse Ox O2 Delivery O2 Flow Rate FiO2 12/18/20 08:23 18 12/18/20 06:00 98.8 61 131/57 (81) 98 Room Air 12/16/20 16:15 2.0 12/14/20 19:00 96 I&O- Last 24 Hours up to 6 AM 12/18/20 06:00 Intake Total 1940 ml Output Total 650 ml Balance 1290 ml Laboratory Data 24H LABS Laboratory Tests 2 12/18/20 04:00: Vancomycin Level Trough 6.8L 12/18/20 06:16: Nucleated Red Blood Cells % (auto) 0.0, Erythrocyte Sedimentation Rate 34H, Anion Gap 5L, Glomerular Filtration Rate > 60.0, Calcium Level 8.4L, Total Bilirubin 1.5H, Aspartate Amino Transf (AST/SGOT) 41H, Alanine Aminotransferase (ALT/SGPT) 27, Alkaline Phosphatase 63, C-Reactive Protein, Quantitative 2.33H, Total Protein 4.8L, Albumin 2.2L, Albumin/Globulin Ratio 0.8 CBC/BMP Laboratory Tests 12/18/20 06:16 Microbiology Microbiology 12/16/20 Gram Stain - Final, Resulted 12/16/20 Surgical Biopsy Culture, Resulted Pending 12/16/20 Anaerobic Culture, Resulted Pending CAMILLE GUSMAN MD Dec 18, 2020 10:25
[2020-12-18] MEDS: ACETAMINOPHEN TAB 650MG DOSE (2X325MG) PO PRN (10:33)
[2020-12-18] MEDS: LORazepam 2 MG TAB PO PRN (11:47)
[2020-12-18 14:00] VITALS: BP 125/49
--- NOTE | 2020-12-18 21:30 | CR ---
INFECTIOUS DISEASE CONSULTATION DATE: 12/18/2020 REQUESTING PHYSICIAN: Dana Gross M.D. REASON FOR CONSULTATION: Oversight of antimicrobial pharmacotherapy in the setting of possible prosthetic joint infection, status post one-step joint revision. HISTORY OF PRESENT ILLNESS: Bonilla is a pleasant 70-year-old male with notable history of chronic thrombocytopenia secondary to alcoholism, hypertension, asthma, severe advanced right hip osteoarthritis, who underwent a right total hip arthoplasty with Dr. Dana Gross at [facility] on Friday, December 11, 2020. Over the course of the next five days, the patient began to experience postoperative complications in the form of persistent drainage, oozing, and bleeding from the surgical site. Dr. Gross ultimately made the decision to take the patient back to the operating room on 12/16 and performed a one-step revision in the form of a right hip debridement and irrigation with exchange arthroplasty of the femoral head and a polyethylene acetabular liner. Insertion of antibiotic beads and a wound VAC were both also performed during the revision. The patient was placed on prophylactic vancomycin after one tissue culture was obtained. After the initiation of prophylactic vancomycin, Dr. Gross consulted the infectious disease service. The one tissue biopsy culture per microbiology has preliminary growth of Staph epidermidis. The gram stain showed only a few white blood cells and the anaerobic culture was negative. The patient has had mild elevations in systemic inflammatory markers that have steadily been decreasing over the past three days. He is currently now postop day #7 from the right total hip arthroplasty and postop day #2 from the one-step revision. He is on day three of vancomycin. He had received the vancomycin every 12 hours for the first two days and is now receiving it every eight hours. On examination today, the patient reports to be ambulating relatively well with the assistance of a four-wheeled walker and supervision with physical therapy. He reports tolerating this well, not feeling unstable and has had no falls. He is eating and drinking without any issues. Per reports, he had been somewhat belligerent at points over the last 48 hours and further history elicited indicate the patient drinks a significant amount of beer on a daily basis and potentially is going through some alcohol withdrawal and the consulted hospitalist service has added on a CIWA protocol. PAST MEDICAL HISTORY: 1. Chronic thrombocytopenia and macrocytosis presumed secondary to history of alcoholism. 2. Asthma. 3. Hypertension. PAST SURGICAL HISTORY: 1. Right total hip arthroplasty on 12/11/20 with one-step revision on 12/16/20. 2. Left total hip arthroplasty (also performed by Dr. Dana Gross), December,. 3. Appendectomy. 4. Unspecific clavicular surgery. 5. Right knee arthroscopy. 6. Bilateral carpal tunnel release. SOCIAL HISTORY: The patient is a dual [place] and [place] citizen, currently living in [facility] [place] west of [place]. Apparently, coming down to the [facility] to have his hip replaced would occur six months before it could be scheduled in [place] and subsequently the patient made arrangements to come [place] of his surgery here at [facility]. 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 His also lives with him in [place] and is currently in [place] at this time. His son who lives in the [place] has traveled up to be in the [place] area postoperatively. The patient has a history of alcohol abuse and had initially reported drinking two beers a day but on further history elicited during this admission, daily amount is in excess of this, approximately 4 to 8 beers a day. He does not currently use tobacco products. FAMILY HISTORY: Mother , colon cancer. Father , reportedly from old age. Paternal aunt Unspecified heart disease. ALLERGIES: THE PATIENT HAS INTERMEDIATE REACTION REPORTED TO MEPERIDINE (FROM [facility]) IN THE FORM OF VOMITING AND THIS WAS VERIFIED ON 12/05/20. CURRENT MEDICATIONS: Outpatient From history and physical, it seems as though his physicians in [place] have stopped administering blood pressure and asthma medicines for the past several months. Apparently he occasionally takes hydrochlorothiazide and was taking both celecoxib and tramadol p.r.n. for the right hip pain prior to the surgery. Current inpatient medications Vancomycin IV q.8 hours, Percocet p.r.n. q.4 hours for moderate pain one tab, Percocet q.4 hours p.r.n. for severe pain, two tabs, thiamine 100 mg b.i.d. p.o., folic acid 1 mg daily p.o., lorazepam 2 mg p.r.n. per [facility] protocol, Benadryl q.6 hours p.r.n. for itching, Senokot b.i.d. p.o., milk of Magnesia daily p.r.n., acetaminophen 650 mg q.4 hours p.r.n., morphine IV 2 mg q.2 hours p.r.n. for pain level 5-7, morphine 3 mg q.2 hours p.r.n. for pain level 8-10, ondansetron 4 mg q.6 p.r.n. for nausea, multivitamin one tab daily. REVIEW OF SYSTEMS: The patient reports his right hip pain is significantly improved from prior to the first surgery on 12/11. He is ambulating with physical therapy and help of a walker with no significant instability issues. He reports his pain level is relatively tolerable at this time. The patient currently denies any fever, chills, night sweats, chest pain, chest pressure, palpitations, shortness of breath, cough, pleuritic chest pain, abdominal pain, nausea, vomiting, diarrhea, constipation, blood in the stool, dysuria, hematuria. The patient also denies any visual or auditory hallucinations or tremors. PHYSICAL EXAMINATION: VITALS: Temperature of 98.8, heart rate of 76, respiratory rate of 18, blood pressure 140/62, SPO2 of 98% on room air, BMI of 30.7. GENERAL: Pleasant, elderly male lying in hospital bed. No acute distress. Alert and oriented x3. HEENT: Normocephalic, atraumatic. Non-injected, anicteric sclerae. There is conjunctival pallor. Mucous membranes appear somewhat dry and there is no pharyngeal erythema or exudate. NECK: Supple. Trachea midline. No lymphadenopathy appreciated. CARDIOVASCULAR: Regular rate, regular rhythm. There is a 2/6 systolic murmur appreciated best at the right second parasternal intercostal space. 2+ radial and dorsalis pedis pulses bilaterally. RESPIRATORY: Diminished breath sounds bilaterally, otherwise, lungs are clear to auscultation with no appreciated adventitious breath sounds. Breathing room air. No accessory muscle use. Speaking full sentences. GASTROINTESTINAL: Abdomen is soft, nontender and nondistended. There are hypoactive bowel sounds throughout. No guarding or rigidity. The liver is about 4-5 cm inferior of the right costal margin. Negative Moore's sign. EXTREMITIES: There is a wound VAC over the lateral proximal aspect of the right lower extremity. There is a streak of ecchymosis running along the lateral aspect of the right lower extremity to approximately the patient's knee. There is slightly warmth of the proximal right lower extremity compared to the proximal left lower extremity. There is 1+ pitting edema of bilateral proximal lower extremities. There is also a JESSY drain in place from the surgical site of the right hip with a scant amount of sanguineous drainage. There is no foul-smelling odor emanating from the surgical site and the dressings appear to be intact and there is no significant induration or drainage from the wound VAC. NEUROLOGIC: The patient is awake, alert and oriented x3. No focal neurologic deficits appreciated. There is no asterixis. LABORATORIES: CBC - WBC 5.9, hemoglobin 8.3, hematocrit 25.7, MCV 105.3, platelet count of 77,000, ESR of 34. CMP - Sodium 141, potassium 3.9, chloride 108, bicarb 28, BUN 21, creatinine 0.7, glucose 145, calcium 8.4, total bilirubin 1.5, AST 41, ALT 27, alkaline phosphatase 63, total protein 4.8, albumin 2.2, C-reactive protein of 2.33. Coagulation panel yesterday had PT of 17, INR 1.35, PTT of 34.5. Vancomycin trough today was 6.8. [id number] serology was negative via PCR. Microbiology: Right hip biopsy, gram stain showing moderate red blood cells, a few white blood cells, no organisms seen. Anaerobic culture showing no growth, this is a final result. Tissue biopsy culture: No documented results to this point although infectious disease service microbiology and preliminary result is Staph epidermis on culture. Blood bank: The patient has been transfused two units of platelets during this admission. No new imaging obtained today. There was an abdominal ultrasound performed yesterday showing mild splenomegaly with hepatic texture findings consistent with cirrhosis due to coarse appearance and gallbladder was not well visualized and it may be filled with calculi and/or sludge. 24-hour input through midnight last night: 1680 mL, output 690 mL, with a net balance of positive 990 mL. 350 mL of output from urine with 340 mL draining from the right JESSY lateral thigh drain. IMPRESSION AND PLAN: 1. Possible prosthetic joint infection versus skin contaminant. Patient is status post one-step revision of right total hip arthroplasty (POD #2) with original total hip arthroplasty on 3/15 (POD #7). Preliminary report over the phone from microbiology is that the single tissue culture biopsy from the revision on 12/16 grew Staph epidermidis. There was only one sample obtained for culture from the surgery and since it is Staph epidermis, there is potential that this could be a skin contaminant. The patient has remained afebrile with no white count and his systemic inflammatory markers were mildly elevated and are trending down currently. While there is some swelling and warmth around the surgical site, it does not appear to be acutely infected as the dressings are intact and there is no significant drainage or odor. It seems as though the swelling is bilateral and more related to his dependent edema from hypoalbuminemia in the setting of his alcoholism. Despite this, we will treat for a prosthetic joint infection and therefore recommend continuing with the IV vancomycin until sensitivities from the one blood culture do return. Once those sensitivities return, in addition to possibly narrowing the IV antibiotic, we will likely also add Rifampin. As patient is status post a one-step revision of a total hip arthroplasty, he would require six weeks of IV antibiotics in addition to oral Rifampin. Due to this long duration of IV antibiotics, we have placed an order for a PICC line to be inserted tomorrow (12/19). In addition to this, we will also make a consultation to patient family services as there is some uncertainty whether patient can be discharged home with a PICC line to [place]. He needs to have weekly followups over the six weeks with lab results and this may be quite complicated if he is living in rural [facility]. The patient does have a son who is in the area who traveled up from the southern [facility]. Perhaps staying with his son in the [facility] for the duration of the antibiotic therapy could be an option, hence the PFS consult. 2. New systolic murmur. Systolic 2/6 murmur was appreciated on examination this morning by the orthopedic service as well as this afternoon by the infectious disease service. As a result, and in the setting of possible prosthetic joint infection, we have ordered a transthoracic echocardiogram. Thank you very much for the opportunity to participate in Mr. Mary's care. We will continue to follow along and monitor for official results of culture and corresponding sensitivities and adjust antibiotics as specified above. Should further questions or concerns from an infectious disease standpoint arise, please contact us. KIMANI
[2020-12-18 22:00] VITALS: BP 124/49
[2020-12-19] MEDS: VANCOMYCIN HCL 1,000 MG, VIAL MATE ADAPTER 1 EACH in NS 250 ML IV SCH ×3 (05:38→20:57)
[2020-12-19] MEDS: PERCOCET 5MG/325MG TAB PO PRN ×3 (05:38→18:21)
[2020-12-19 06:00] VITALS: BP_SYST 124; BP_SYST 136; BP_DIAS 49; BP_DIAS 54
[2020-12-19] MEDS: THIAMINE 100 MG TAB PO SCH ×2 (08:12→20:57)
[2020-12-19] MEDS: MULTIVITAMINS/MINERALS THERAP 1 TAB PO SCH (08:12)
[2020-12-19] MEDS: FOLIC ACID 1 MG TAB PO SCH (08:12)
[2020-12-19] MEDS: SENOKOT S TAB PO SCH ×2 (08:12→20:57)
[2020-12-19] MEDS: MORPHINE 2 MG/ML 1ML VIAL (J2270) IV PRN ×2 (08:13→13:30)
[2020-12-19 09:00] VITALS: O2SAT 97
[2020-12-19] MEDS ORDERED: LIDOCAINE 1% MDV 20ML VIAL As Ordered ONE (11:47)
[2020-12-19] MEDS: LORazepam 2 MG TAB PO PRN (13:29)
[2020-12-19 14:00] VITALS: BP 121/61
--- NOTE | 2020-12-19 18:13 | REP ---
INDICATION: abx access for prosthetic joint infection. COMPARISON: None. TECHNIQUE: The procedure was performed under the direct supervision of Dr. Palacios. The risks and benefits of the procedure were explained to the patient and informed consent was obtained. The left basilic vein was localized using ultrasound guidance. The skin was prepped and draped in a sterile fashion. 2% lidocaine was used as a local anesthetic. Using ultrasound guidance the basilic vein was cannulated and a 0.018 guidewire was inserted and advanced to the SVC using fluoroscopic guidance. The needle was removed and a 4.5 [place] dilator and peel-away sheath was inserted over the guide wire. A 4.5 [place] single lumen catheter was cut to length of 48 cm. The dilator was removed and the catheter was inserted over the guide wire with the tip ending in the SVC. The peel-away sheath was removed and the catheter was flushed with heparinized saline as per Hospital protocol. The catheter was affixed to the skin and a sterile dressing was applied. The patient tolerated the procedure well and there were no immediate complications. 0.2 minutes of fluoro time was utilized for this procedure. FINDINGS: None IMPRESSION: PICC line insertion left basilic vein with the tip ending in the SVC. <Electronically signed by Esteban Figueroa > 12/19/20 1730 <Electronically signed by Alvaro Palacios > 12/19/20 1813
--- NOTE | 2020-12-19 19:26 | IPNPDOC ---
Date Seen The patient was seen on 12/19/20. Progress Note SUBJECTIVE: PICC line placed today in left arm. Notified of COVID exposure by son who tested positive, was here 2 days ago. Per protocol/policy, will keep on contact isolation and check COVID test on 12/21/20. No s/s with patient. Calm this AM, denies chest pain, SOB, fevers, chills. OBJECTIVE: VITAL SIGNS: Please see below PHYSICAL EXAMINATION: VS: Please see below CONSTITUTIONAL: No acute distress, resting comfortably, AAO x 3 EYES: PERRLA, EOM intact HENT, MOUTH: Normocephalic, atraumatic, moist mucous membranes NECK: SUPPLE, no JVD, no lymphadenopathy, no carotid bruit CV: Regular rate and rhythm, S1S2 normal, no murmurs/rubs/gallops RESPIRATORY: Clear to auscultation bilaterally, no rales/rhonchi/wheezes GI: BS positive in 4 quadrants, soft, nontender, nondistended, no rebound or guarding, no organomegaly : Deferred MUSCULOSKELETAL: Single lumen PICC line, normal ROM. No cyanosis, clubbing, swelling, joint deformity, extremity edema INTEGUMENTARY: Intact, no rashes, no lesions, no erythema NEUROLOGIC: Cranial Nerves II-XII are intact, no focal deficits PSYCHIATRIC: Slightly agitated at times during the day CURRENT MEDICATIONS: Please see below LABORATORY DATA: Please see below MICROBIOLOGY: Right hip cx: Staph epidermidis IMAGING: no new imaging ASSESSMENT: 70 year old male with h/o alcohol abuse, chronic thrombocytopenia, advanced right hip osteoarthritis admitted for right total hip replacement. Hospitalist was consulted for management of medical comorbidities. PLAN: Right total hip replacement on 12/11/20 with post-op infection Staphylococcus epidermidis -Complicated by postoperative bleeding and persistent drainage from the surgical site. Went back to OR on 12/16/20 had Right hip irrigation and debridement, Right hip exchange arthroplasty of the femoral head in a polyethylene acetabular liner, Insertion of antibiotic beads, Application of Prevena wound VAC. -ID consulted -C/w vancomycin, plan per ortho -PT/OT -Goal is retirement abx Increased agitation likely 2/2 to alcohol withdrawal vs. 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 -S/p 2 units of platelets this admission -PLTs 77, decreasing, no s/s of incr bleeding -F/u daily CBC and monitor to see if additional transfusions needed Mild hyperbilirubinemia poss 2/2 to prior bleeding -no elevation or transaminases -Improving HTN -not on any meds. -will continue to monitor in hospital. H/O Asthma -Stable on RA DVT prophylaxis -mechanical. AC CI VS, I&O, 24H, Fishbone Vital Signs/I&O Vital Signs Date Time Temp Pulse Resp B/P (MAP) Pulse Ox O2 Delivery O2 Flow Rate FiO2 12/19/20 18:21 16 12/19/20 14:00 99.4 85 121/61 (81) 98 Room Air 12/16/20 16:15 2.0 12/14/20 19:00 96 I&O- Last 24 Hours up to 6 AM 12/19/20 06:00 Intake Total 1390 ml Output Total 265 ml Balance 1125 ml Laboratory Data 24H LABS Laboratory Tests 2 12/19/20 05:22: Erythrocyte Sedimentation Rate 32H, C-Reactive Protein, Quantitative 1.50H 12/19/20 11:47: Vancomycin Level Trough 14.6 Microbiology Microbiology 12/16/20 Gram Stain - Final, Complete 12/16/20 Surgical Biopsy Culture - Final, Complete Staphylococcus Epidermidis 12/16/20 Anaerobic Culture - Final, Complete Current Medications Current Medications Medications (Trade) Dose Ordered Sig/Cyndi Route PRN Reason Start Time Stop Time Status Last Admin Dose Admin Acetaminophen (Tylenol Tab) 650 mg Q4HP PRN PO TEMP AND PAIN LEVEL 1-4 12/11/20 10:25 12/18/20 10:33 Cefazolin Sodium/ Dextrose 2 gm/IV Miscellaneous Supplies 50 ml @ 75 mls/hr Q8H IV 12/11/20 16:00 12/12/20 08:39 DC 12/12/20 08:56 Cephalexin Monohydrate (Keflex) 500 mg TID PO 12/13/20 09:00 12/16/20 15:00 DC 12/16/20 08:18 Diphenhydramine HCl (Benadryl) 25 mg Q6HP PRN PO ITCHING 12/15/20 20:00 12/18/20 09:40 Fentanyl Citrate (Sublimaze) 25 mcg Q5MP PRN IV PAIN LEVEL 5-10 12/11/20 10:25 12/11/20 10:43 DC 12/11/20 10:20 Fentanyl Citrate (Sublimaze) 25 mcg Q5MP PRN IV PAIN LEVEL 5-10 12/16/20 14:30 12/16/20 14:52 DC 12/16/20 14:51 Folic Acid (Folic Acid) 1 mg DAILY PO 12/18/20 09:00 12/19/20 08:12 Hydromorphone HCl (Dilaudid) 0.2 mg Q5MP PRN IV PAIN LEVEL 4-7 12/11/20 10:25 12/11/20 11:25 DC 12/11/20 10:33 Lactated Ringer's 1,000 ml @ 100 mls/hr Q10H IV 12/11/20 10:25 12/11/20 11:25 DC Lactated Ringer's 1,000 ml @ 100 mls/hr Q10H IV 12/11/20 10:25 12/11/20 21:22 DC 12/11/20 13:15 Lactated Ringer's 1,000 ml @ 100 mls/hr Q10H IV 12/16/20 14:30 12/16/20 15:30 DC 12/16/20 14:38 Lactated Ringer's 1,000 ml @ 100 mls/hr Q10H IV 12/16/20 15:10 12/16/20 21:43 DC Lidocaine HCl (LIDOCAINE 1% MDV 20ml) 0.1 ml ONCE PRN SQ DISCOMFORT BEFORE IV START 12/11/20 06:00 12/11/20 10:19 DC Lorazepam (Ativan) 2 mg ASDIRECTED PRN PO SEE PROTOCOL 12/17/20 19:15 12/19/20 13:29 Magnesium Hydroxide (Milk Of Magnesia) 30 ml DAILYPRN PRN PO CONSTIPATION 12/11/20 19:05 Midazolam HCl (Versed) 1 mg Q5M PRN IV ANXIETY 12/16/20 14:30 12/16/20 15:30 DC 12/16/20 14:10 Morphine Sulfate (Morphine Sulfate Inj) 2 mg Q2H PRN IV PAIN LEVEL 5-7 12/11/20 10:25 12/19/20 13:30 Morphine Sulfate (Morphine Sulfate Inj) 2 mg Q5MP PRN IV PAIN LEVEL 5-10 12/16/20 15:00 12/16/20 16:00 DC 12/16/20 15:21 Morphine Sulfate (Morphine Sulfate Inj) 3 mg Q2H PRN IV PAIN LEVEL 8-10 12/11/20 10:25 12/18/20 04:15 Multivitamins (Theragram-M) 1 tab DAILY PO 12/18/20 09:00 12/19/20 08:12 Ondansetron HCl (ZOFRAN INJection) 4 mg Q4HP PRN IV NAUSEA OR VOMITING 12/11/20 10:25 12/11/20 11:25 DC Ondansetron HCl (ZOFRAN INJection) 4 mg Q4HP PRN IV NAUSEA OR VOMITING 12/16/20 14:30 12/16/20 15:30 DC Ondansetron HCl (ZOFRAN INJection) 4 mg Q6H PRN IV NAUSEA 12/11/20 10:25 Oxycodone HCl (Roxicodone, Oxyir) 5 mg ASDIRECTED PRN PO PAIN LEVEL 1-4 12/11/20 10:25 12/11/20 11:25 DC 12/11/20 10:27 Oxycodone HCl (Roxicodone, Oxyir) 5 mg ASDIRECTED PRN PO PAIN LEVEL 1-4 12/16/20 14:30 12/16/20 15:22 DC 12/16/20 15:22 Oxycodone/ Acetaminophen (Percocet 5mg/ 325mg Tablet) 1 tab Q4HP PRN PO MODERATE PAIN (PS 5-7) 12/17/20 14:15 12/19/20 18:21 Oxycodone/ Acetaminophen (Percocet 5mg/ 325mg Tablet) 1 tab Q6H PRN PO PAIN LEVEL 5-7 12/11/20 10:25 12/17/20 14:16 DC 12/12/20 20:36 Oxycodone/ Acetaminophen (Percocet 5mg/ 325mg Tablet) 2 tab Q4HP PRN PO SEVERE PAIN (PS 8-10) 12/17/20 14:15 12/19/20 11:16 Oxycodone/ Acetaminophen (Percocet 5mg/ 325mg Tablet) 2 tab Q6H PRN PO PAIN LEVEL 8-10 12/11/20 10:25 12/17/20 14:16 DC 12/17/20 11:13 Rifampin (Rifadin) 300 mg BID PO 12/19/20 21:00 01/27/21 23:59 Rivaroxaban (Xarelto) 10 mg DAILY@18 PO 12/12/20 18:00 12/12/20 13:18 DC Senna/Docusate Sodium (Senokot S) 1 tab BID PO 12/11/20 21:00 12/19/20 08:12 Thiamine HCl (Thiamine HCl) 100 mg BID PO 12/17/20 21:00 12/20/20 20:59 12/19/20 08:12 Vancomycin HCl 1000 mg/IV Miscellaneous Supplies 1 each/ Sodium Chloride 270 ml @ 270 mls/hr Q12H IV 12/16/20 17:00 12/18/20 05:10 DC 12/17/20 16:04 Vancomycin HCl 1000 mg/IV Miscellaneous Supplies 1 each/ Sodium Chloride 270 ml @ 270 mls/hr Q8H IV 12/18/20 05:00 12/19/20 13:29 Allergies Coded Allergies: meperidine (Verified Adverse Reaction, Intermediate, VOMITING, 12/05/20) Eve Gaines MD Dec 19, 2020 19:26
[2020-12-19] MEDS: rifAMPin 150MG CAPSULE PO SCH (20:57)
[2020-12-19 21:00] VITALS: O2SAT 95
[2020-12-19 22:00] VITALS: BP 134/60
[2020-12-20] MEDS: diphenhydrAMINE 25MG CAP PO PRN (00:07)
[2020-12-20] MEDS: PERCOCET 5MG/325MG TAB PO PRN ×5 (00:14→19:39)
[2020-12-20] MEDS: VANCOMYCIN HCL 1,000 MG, VIAL MATE ADAPTER 1 EACH in NS 250 ML IV SCH (05:42)
[2020-12-20 06:00] VITALS: BP_SYST 109; BP_SYST 115; BP_DIAS 56; BP_DIAS 71
[2020-12-20 07:10] LABS: ERYTHROCYTE SEDIMENTATION RATE 31 mm/hr (0-20)
[2020-12-20 07:11] LABS: C REACTIVE PROTEIN QUANTITATIV 1.37 MG/DL (0.00-0.30)
[2020-12-20 08:40] LABS: ALBUMIN 2.1 GM/DL (3.2-5.2); ALT/SGPT 36 U/L (12-78); BILIRUBIN,TOTAL 2.3 MG/DL (0.2-1.0); BLOOD UREA NITROGEN 20 MG/DL (7-18); CALCIUM LEVEL 8.4 MG/DL (8.8-10.2); CARBON DIOXIDE LEVEL 30 MEQ/L (21-32); CHLORIDE LEVEL 108 MEQ/L (98-107); CREATININE FOR GFR 0.68 MG/DL (0.70-1.30); GLOMERULAR FILTRATION RATE > 60.0 (>49); GLUCOSE, FASTING 185 MG/DL (70-100); POTASSIUM SERUM 3.3 MEQ/L (3.5-5.1); SODIUM LEVEL 141 MEQ/L (136-145); TOTAL PROTEIN 4.8 GM/DL (6.4-8.2)
[2020-12-20 09:05] LABS: HEMATOCRIT 25.7 % (42.0-52.0); HEMOGLOBIN 8.4 g/dl (13.5-17.5); MEAN CORPUSCULAR HEMOGLOBIN 34.1 pg (27.0-33.0); MEAN CORPUSCULAR HGB CONC 32.7 g/dl (32.0-36.5); MEAN CORPUSCULAR VOLUME 104.5 fl (80.0-96.0); RED BLOOD COUNT 2.46 10^6/uL (4.30-6.10); WHITE BLOOD COUNT 3.5 10^3/uL (4.0-10.0)
[2020-12-20 09:07] LABS: PLATELET COUNT, AUTOMATED 68 10^3/uL (150-450)
[2020-12-20] MEDS: FOLIC ACID 1 MG TAB PO SCH (10:08)
[2020-12-20] MEDS: THIAMINE 100 MG TAB PO SCH (10:08)
[2020-12-20] MEDS: SENOKOT S TAB PO SCH ×2 (10:08→21:23)
[2020-12-20] MEDS: rifAMPin 150MG CAPSULE PO SCH ×2 (10:08→21:24)
[2020-12-20] MEDS: MULTIVITAMINS/MINERALS THERAP 1 TAB PO SCH (10:08)
[2020-12-20] MEDS: SODIUM CHLORIDE 0.9% INJ 10 ML SYR IV SCH ×2 (10:10→17:23)
--- NOTE | 2020-12-20 10:51 | ECHO ---
DATE OF PROCEDURE: 12/19/2020 Age: 70 Gender: Male Height: 180 cm Weight: 100 kg REFERRING PHYSICIAN: Kvng Osorio DO. INDICATION: Hypertension. MEASUREMENTS: IVS 0.9 cm LV 5.4 cm LVPW 1.0 cm LA 4.1 cm Aorta 2.7 cm RV 3.2 cm Mitral E wave velocity 131 Mitral A wave 113 E prime septal 7.9 E prime lateral 9.5 FINDINGS: This study is of rather limited technical quality with difficult visualization (patient was unable to lay on his left side). Left ventricle is normal size and has hyperdynamic contractility. I estimate EF approximately 70% to 75%. Right ventricle appears normal. Left atrium is at least mildly enlarged. The right atrium was poorly visualized, but grossly appears normal. Aortic valve is heavily sclerotic. It is tricuspid and there is at least mild restriction of cusp mobility. Mitral, tricuspid, and pulmonic valve appear normal. No pericardial effusion is noted. Inferior vena cava was not seen. Aortic root and aortic arch appear normal. Abdominal aorta was not visualized. Doppler interrogation of the aortic valve reveals no insufficiency and mild stenosis with mean gradient 17 and peak gradient 32 mmHg. There is trace mitral insufficiency and mild tricuspid insufficiency. Calculated pulmonary artery pressure is at minimum in the 40s corresponding to moderate pulmonary hypertension. Pulmonic valve is functionally competent. Mitral inflow pattern and tissue Doppler imaging of the mitral annulus revealed probably normal diastolic function even though tissue Doppler velocities of the mitral annulus are mildly reduced. CONCLUSIONS: 1. Study is of fair technical quality, underlying sinus rhythm. 2. Normal Left ventricle (LV) size with hyperdynamic LV systolic function and probably normal diastolic function. 3. Prominent aortic sclerosis with mild stenosis and no insufficiency. 4. Mild tricuspid insufficiency. 5. Unable to estimate central venous pressure, but at least moderate pulmonary hypertension. MTDD
--- NOTE | 2020-12-20 11:00 | IPN ---
PROGRESS NOTE DATE: 12/19/2020 SUBJECTIVE: Mr. Mary was lethargic this afternoon and somewhat sleepy. He had received lorazepam, as well as two doses of morphine earlier today and some Percocet. The patient is on the [facility] protocol for alcohol withdrawal. A PICC line was placed today in his left arm. His son, who had traveled from [place] to be with him for his surgery, tested positive for COVID today, December 19. The patient's son left [place] last Friday and was negative twice before he visited his father. He saw his father on Friday for two hours and on Friday for four hours. He was double masked and tried to stay farther away in his room, but he did spend four hours. The patient currently denies any cough, shortness of breath, fever, or chills. OBJECTIVE: VITAL SIGNS: Temperature 99.4, pulse 85, respirations 18, blood pressure 121/61, O2 sat 98% on room air. GENERAL APPEARANCE: Resting comfortably, sleepy, in no acute distress. HEART: Normal S1, S2. No murmurs, rubs, or gallops. LUNGS: Clear to auscultation. No wheezes or rhonchi anteriorly. ABDOMEN: Soft and nontender with no hepatosplenomegaly. EXTREMITIES: +1 pitting edema, but he has more sacral edema especially around the hip, +2 pitting around the sacral area. Right hip has a PREVENA wound with serosanguineous discharge. No surrounding cellulitis. NEUROLOGIC: Cranial nerves intact. Lethargic from medications. LABORATORY DATA: White count 5.9, hemoglobin 8.3, hematocrit 25.7, platelets 77,000. ESR 34. Sodium 141, potassium 3.9, chloride 108, bicarb 28, BUN 21, creatinine 0.7, glucose 145, calcium 8.4. Bilirubin 1.5 down from 2.6. CRP 1.5. Total protein 4.8, albumin 2.2. Wound culture only one specimen sent from the operative site was Staph epidermidis two pathogens sensitive to vancomycin and rifampin; methicillin-resistant Staph epidermidis. IMPRESSION: 1. Status post right hip arthroplasty with persistent serosanguineous discharge postoperatively most likely due to hypoalbuminemia, liver cirrhosis, and thrombocytopenia. The patient was taken back to the operating room for incision and drainage (I&D) and exchange of polyethylene liner, as well as the head of the prosthesis. The culture was positive for few Staphylococcus epidermidis, although I am not fully convinced that the patient had a postoperative fever, I suspect this was more of a seroma due to hypoalbuminemia; but at this point, I feel obligated to treat him for a possible postoperative wound infection with Staphylococcus epidermidis with intravenous (IV) vancomycin and p.o. rifampin, as the patient would be at high risk of problems if this gets infected and he lives four hours away. His follow-up will be very challenging. 2. Alcoholic liver cirrhosis with hypoalbuminemia, and thrombocytopenia. 3. Withdrawal symptoms with delirium. The patient has received lorazepam and is more lethargic. 4. COVID exposure. The patient was exposed to his son 48 hours ago for a total of four hours and therefore, the patient will be placed on COVID isolation. He will be tested at day four and if positive, the patient would benefit from monoclonal antibodies. PLAN: Peripherally inserted central catheter (PICC) line has been placed. The patient will be treated with IV vancomycin. Currently on 1 gram q. 8 hours. Start rifampin 300 mg p.o. b.i.d. was added for six weeks. Vancomycin trough was 14.6. The case has been discussed with Dr. Gross who agrees with the plan. Case was discussed with Jose Morrow with patient financial services (PFS) regarding his placement. At this point, the patient will need to remain at [facility] either at the skilled nursing or acute rehabilitation unit (ARU) for 10 days minimum until his exposure period is over. He will be tested at day four. Afterwards, the patient could be transitioned to a skilled nursing in [place] or in [place] where his son lives. KIMANI
[2020-12-20] MEDS: VANCOMYCIN HCL 750 MG, VIAL MATE ADAPTER 1 EACH in NS 250 ML IV SCH ×2 (13:39→21:23)
[2020-12-20 13:53] VITALS: BP 158/68
[2020-12-20 13:58] VITALS: BP 158/68
[2020-12-20] MEDS: VANCOMYCIN HCL 500 MG in D5W MINI-BAG PLUS 100 ML IV SCH ×2 (15:04→22:55)
[2020-12-20] MEDS: SODIUM CHLORIDE 0.9% INJ 10 ML SYR IV PRN (16:27)
[2020-12-20 21:00] VITALS: BP 149/53
[2020-12-20 21:36] VITALS: BP 149/53
[2020-12-20] MEDS: MORPHINE 4 MG/ML 1ML VIAL/SYRINGE (J2270) IV PRN (22:54)
[2020-12-21] MEDS: PERCOCET 5MG/325MG TAB PO PRN ×5 (00:09→20:31)
[2020-12-21] MEDS: VANCOMYCIN HCL 750 MG, VIAL MATE ADAPTER 1 EACH in NS 250 ML IV SCH (04:57)
[2020-12-21 05:02] VITALS: BP 145/53
[2020-12-21] MEDS: VANCOMYCIN HCL 500 MG in D5W MINI-BAG PLUS 100 ML IV SCH (06:22)
[2020-12-21 06:37] LABS: HEMATOCRIT 26.2 % (42.0-52.0); HEMOGLOBIN 8.5 g/dl (13.5-17.5); MEAN CORPUSCULAR HEMOGLOBIN 34.3 pg (27.0-33.0); MEAN CORPUSCULAR HGB CONC 32.4 g/dl (32.0-36.5); MEAN CORPUSCULAR VOLUME 105.6 fl (80.0-96.0); RED BLOOD COUNT 2.48 10^6/uL (4.30-6.10); WHITE BLOOD COUNT 3.3 10^3/uL (4.0-10.0)
[2020-12-21 06:43] LABS: PLATELET COUNT, AUTOMATED 58 10^3/uL (150-450)
[2020-12-21] MEDS: SODIUM CHLORIDE 0.9% INJ 10 ML SYR IV SCH ×2 (07:00→16:50)
[2020-12-21 07:01] LABS: ALBUMIN 2.1 GM/DL (3.2-5.2); ALT/SGPT 31 U/L (12-78); BILIRUBIN,TOTAL 3.1 MG/DL (0.2-1.0); BLOOD UREA NITROGEN 17 MG/DL (7-18); C REACTIVE PROTEIN QUANTITATIV 1.14 MG/DL (0.00-0.30); CALCIUM LEVEL 8.2 MG/DL (8.8-10.2); CARBON DIOXIDE LEVEL 29 MEQ/L (21-32); CHLORIDE LEVEL 108 MEQ/L (98-107); CREATININE FOR GFR 0.66 MG/DL (0.70-1.30); GLOMERULAR FILTRATION RATE > 60.0 (>49); GLUCOSE, FASTING 183 MG/DL (70-100); POTASSIUM SERUM 3.4 MEQ/L (3.5-5.1); SODIUM LEVEL 141 MEQ/L (136-145); TOTAL PROTEIN 4.6 GM/DL (6.4-8.2)
[2020-12-21 07:03] LABS: ERYTHROCYTE SEDIMENTATION RATE 28 mm/hr (0-20)
[2020-12-21] MEDS: rifAMPin 150MG CAPSULE PO SCH ×2 (09:07→20:29)
[2020-12-21] MEDS: FOLIC ACID 1 MG TAB PO SCH (09:07)
[2020-12-21] MEDS: SENOKOT S TAB PO SCH ×2 (09:07→20:29)
[2020-12-21] MEDS: MULTIVITAMINS/MINERALS THERAP 1 TAB PO SCH (09:08)
--- NOTE | 2020-12-21 13:23 | IPNPDOC ---
Date Seen The patient was seen on 12/21/20. Progress Note SUBJECTIVE: COVID test neg, currently still on precautions for 10 days. Stopped heparin flushes due to decreased PLTs. No s/s with patient. Patient is cooperative and denies chest pain, SOB, fevers, chills. OBJECTIVE: VITAL SIGNS: Please see below PHYSICAL EXAMINATION: VS: Please see below CONSTITUTIONAL: No acute distress, resting comfortably, AAO x 3 EYES: PERRLA, EOM intact HENT, MOUTH: Normocephalic, atraumatic, moist mucous membranes NECK: SUPPLE, no JVD, no lymphadenopathy, no carotid bruit CV: Regular rate and rhythm, S1S2 normal, no murmurs/rubs/gallops RESPIRATORY: Clear to auscultation bilaterally, no rales/rhonchi/wheezes GI: BS positive in 4 quadrants, soft, nontender, nondistended, no rebound or guarding, no organomegaly : Deferred MUSCULOSKELETAL: Single lumen PICC line, normal ROM. No cyanosis, clubbing, swelling, joint deformity, extremity edema INTEGUMENTARY: right hip wound vac, JESSY drain with serosanguinous fluid 70 cc in area of right hip. Large bruised area of right leg/hip extending down entire lateral leg. Tenderness +. Intact, no rashes. Incision covered with bandage. NEUROLOGIC: Cranial Nerves II-XII are intact, no focal deficits PSYCHIATRIC: Mood and affect appropriate CURRENT MEDICATIONS: Please see below LABORATORY DATA: Please see below MICROBIOLOGY: Right hip cx: Staph epidermidis COVID PCR eng IMAGING: no new imaging ASSESSMENT: 70 year old male with h/o alcohol abuse, chronic thrombocytopenia, advanced right hip osteoarthritis admitted for right total hip replacement. Hospitalist was consulted for management of medical comorbidities. PLAN: Right total hip replacement on 12/11/20 with post-op infection Staphylococcus epidermidis -Complicated by postoperative bleeding and persistent drainage from the surgical site. Went back to OR on 12/16/20 had right hip irrigation and debridement, Right hip exchange arthroplasty of the femoral head in a polyethylene acetabular liner, Insertion of antibiotic beads, Application of Prevena wound VAC. -PT/OT -PICC line in place -Per ID, the patient will be treated with IV vancomycin 1 gram q. 8 hours and rifampin 300 mg p.o. b.i.d. was added for six weeks. Patient will need to remain at [facility] either at the [facility] or acute rehabilitation unit (ARU) for 10 days minimum until his exposure period is over. Afterwards, the patient could be transitioned to a mcfp in [place] or in [place] where his son lives. Anemia of chronic disease and acute blood loss s/p surgery -H/H 8.5/26, denies SOB, chest pain, lightheadedness, dizziness -VS stable -No incr bleeding since repeat surgery -Monitor with daily CBC -Would recommend transfusion if <8 or symptomatic Chronic thrombocytopenia 2/2 to cirrhosis of liver. -S/p 2 units of platelets this admission -PLTs lower at 58, decreasing, no s/s of incr bleeding -Stopped heparin flushes -F/u daily CBC and monitor to see if additional platelet transfusions needed COVID-19 exposure -by son -COVID test neg -Keep on precautions until total of 10 days -Currently no s/s of virus Cirrhosis of Liver likely 2/2 to alcohol abuse -transaminitis, improving. Bili remains high -no further s/s of bleeding -Monitor CMP regularly Hyperbilirubinemia poss 2/2 to prior bleeding -No abdominal pain, n/v -Improving HTN -not on any meds. -will continue to monitor in hospital. H/O Asthma -Stable on RA DVT prophylaxis -mechanical. AC CI Resolved issues: Increased agitation likely 2/2 to alcohol withdrawal vs. frustration/behavioral VS, I&O, 24H, Fishbone Vital Signs/I&O Vital Signs Date Time Temp Pulse Resp B/P (MAP) Pulse Ox O2 Delivery O2 Flow Rate FiO2 12/21/20 09:40 16 12/21/20 05:02 98.1 71 145/53 (83) 94 Room Air 12/16/20 16:15 2.0 I&O- Last 24 Hours up to 6 AM 12/21/20 06:00 Intake Total 3305 ml Output Total 505 ml Balance 2800 ml Laboratory Data 24H LABS Laboratory Tests 2 12/21/20 06:05: Nucleated Red Blood Cells % (auto) 0.0, Erythrocyte Sedimentation Rate 28H, Anion Gap 4L, Glomerular Filtration Rate > 60.0, Calcium Level 8.2L, Total Bilirubin 3.1H, Aspartate Amino Transf (AST/SGOT) 28, Alanine Aminotransferase (ALT/SGPT) 31, Alkaline Phosphatase 76, C-Reactive Protein, Quantitative 1.14H, Total Protein 4.6L, Albumin 2.1L, Albumin/Globulin Ratio 0.8 12/21/20 08:00: Coronavirus (COVID-19)(PCR) NEGATIVE 12/21/20 12:09: Vancomycin Level Trough 19.7 CBC/BMP Laboratory Tests 12/21/20 06:05 Microbiology Microbiology 12/16/20 Gram Stain - Final, Complete 12/16/20 Surgical Biopsy Culture - Final, Complete Staphylococcus Epidermidis 12/16/20 Anaerobic Culture - Final, Complete Current Medications Current Medications Medications (Trade) Dose Ordered Sig/Cyndi Route PRN Reason Start Time Stop Time Status Last Admin Dose Admin Acetaminophen (Tylenol Tab) 650 mg Q4HP PRN PO TEMP AND PAIN LEVEL 1-4 12/11/20 10:25 12/18/20 10:33 Cefazolin Sodium/ Dextrose 2 gm/IV Miscellaneous Supplies 50 ml @ 75 mls/hr Q8H IV 12/11/20 16:00 12/12/20 08:39 DC 12/12/20 08:56 Cephalexin Monohydrate (Keflex) 500 mg TID PO 12/13/20 09:00 12/16/20 15:00 DC 12/16/20 08:18 Diphenhydramine HCl (Benadryl) 25 mg Q6HP PRN PO ITCHING 12/15/20 20:00 12/20/20 00:07 Fentanyl Citrate (Sublimaze) 25 mcg Q5MP PRN IV PAIN LEVEL 5-10 12/11/20 10:25 12/11/20 10:43 DC 12/11/20 10:20 Fentanyl Citrate (Sublimaze) 25 mcg Q5MP PRN IV PAIN LEVEL 5-10 12/16/20 14:30 12/16/20 14:52 DC 12/16/20 14:51 Folic Acid (Folic Acid) 1 mg DAILY PO 12/18/20 09:00 12/21/20 09:07 Heparin Sodium (Heparin (Flush)) 200 units ASDIRECTED PRN IV SEE LABEL COMMENTS 12/19/20 23:30 12/21/20 07:53 DC 12/20/20 16:27 Heparin Sodium (Heparin (Flush)) 200 units PICC IV 12/20/20 09:00 12/21/20 07:53 DC 12/20/20 10:09 Hydromorphone HCl (Dilaudid) 0.2 mg Q5MP PRN IV PAIN LEVEL 4-7 12/11/20 10:25 12/11/20 11:25 DC 12/11/20 10:33 Lactated Ringer's 1,000 ml @ 100 mls/hr Q10H IV 12/11/20 10:25 12/11/20 11:25 DC Lactated Ringer's 1,000 ml @ 100 mls/hr Q10H IV 12/11/20 10:25 12/11/20 21:22 DC 12/11/20 13:15 Lactated Ringer's 1,000 ml @ 100 mls/hr Q10H IV 12/16/20 14:30 12/16/20 15:30 DC 12/16/20 14:38 Lactated Ringer's 1,000 ml @ 100 mls/hr Q10H IV 12/16/20 15:10 12/16/20 21:43 DC Lidocaine HCl (LIDOCAINE 1% MDV 20ml) 0.1 ml ONCE PRN SQ DISCOMFORT BEFORE IV START 12/11/20 06:00 12/11/20 10:19 DC Lorazepam (Ativan) 2 mg ASDIRECTED PRN PO SEE PROTOCOL 12/17/20 19:15 12/19/20 13:29 Magnesium Hydroxide (Milk Of Magnesia) 30 ml DAILYPRN PRN PO CONSTIPATION 12/11/20 19:05 Midazolam HCl (Versed) 1 mg Q5M PRN IV ANXIETY 12/16/20 14:30 12/16/20 15:30 DC 12/16/20 14:10 Morphine Sulfate (Morphine Sulfate Inj) 2 mg Q2H PRN IV PAIN LEVEL 5-7 12/11/20 10:25 12/19/20 13:30 Morphine Sulfate (Morphine Sulfate Inj) 2 mg Q5MP PRN IV PAIN LEVEL 5-10 12/16/20 15:00 12/16/20 16:00 DC 12/16/20 15:21 Morphine Sulfate (Morphine Sulfate Inj) 3 mg Q2H PRN IV PAIN LEVEL 8-10 12/11/20 10:25 12/20/20 22:54 Multivitamins (Theragram-M) 1 tab DAILY PO 12/18/20 09:00 12/21/20 09:08 Ondansetron HCl (ZOFRAN INJection) 4 mg Q4HP PRN IV NAUSEA OR VOMITING 12/11/20 10:25 12/11/20 11:25 DC Ondansetron HCl (ZOFRAN INJection) 4 mg Q4HP PRN IV NAUSEA OR VOMITING 12/16/20 14:30 12/16/20 15:30 DC Ondansetron HCl (ZOFRAN INJection) 4 mg Q6H PRN IV NAUSEA 12/11/20 10:25 Oxycodone HCl (Roxicodone, Oxyir) 5 mg ASDIRECTED PRN PO PAIN LEVEL 1-4 12/11/20 10:25 12/11/20 11:25 DC 12/11/20 10:27 Oxycodone HCl (Roxicodone, Oxyir) 5 mg ASDIRECTED PRN PO PAIN LEVEL 1-4 12/16/20 14:30 12/16/20 15:22 DC 12/16/20 15:22 Oxycodone/ Acetaminophen (Percocet 5mg/ 325mg Tablet) 1 tab Q4HP PRN PO MODERATE PAIN (PS 5-7) 12/17/20 14:15 12/19/20 18:21 Oxycodone/ Acetaminophen (Percocet 5mg/ 325mg Tablet) 1 tab Q6H PRN PO PAIN LEVEL 5-7 12/11/20 10:25 12/17/20 14:16 DC 12/12/20 20:36 Oxycodone/ Acetaminophen (Percocet 5mg/ 325mg Tablet) 2 tab Q4HP PRN PO SEVERE PAIN (PS 8-10) 12/17/20 14:15 12/21/20 09:08 Oxycodone/ Acetaminophen (Percocet 5mg/ 325mg Tablet) 2 tab Q6H PRN PO PAIN LEVEL 8-10 12/11/20 10:25 12/17/20 14:16 DC 12/17/20 11:13 Rifampin (Rifadin) 300 mg BID PO 12/19/20 21:00 01/27/21 23:59 12/21/20 09:07 Rivaroxaban (Xarelto) 10 mg DAILY@18 PO 12/12/20 18:00 12/12/20 13:18 DC Senna/Docusate Sodium (Senokot S) 1 tab BID PO 12/11/20 21:00 12/21/20 09:07 Sodium Chloride (Saline Lock Flush) 10 ml ASDIRECTED PRN IV SEE LABEL COMMENTS 12/19/20 23:30 12/20/20 16:27 Sodium Chloride (Saline Lock Flush) 10 ml PICC IV 12/20/20 09:00 12/20/20 10:10 Thiamine HCl (Thiamine HCl) 100 mg BID PO 12/17/20 21:00 12/20/20 20:59 DC 12/20/20 10:08 Vancomycin HCl 500 mg/Dextrose 110 ml @ 110 mls/hr Q8H IV 12/20/20 14:00 12/21/20 13:00 DC 12/21/20 06:22 Vancomycin HCl 750 mg/IV Miscellaneous Supplies 1 each/ Sodium Chloride 275 ml @ 275 mls/hr Q8H IV 12/20/20 13:00 12/21/20 13:00 DC 12/21/20 04:57 Vancomycin HCl 1000 mg/IV Miscellaneous Supplies 1 each/ Sodium Chloride 270 ml @ 270 mls/hr Q12H IV 12/16/20 17:00 12/18/20 05:10 DC 12/17/20 16:04 Vancomycin HCl 1000 mg/IV Miscellaneous Supplies 1 each/ Sodium Chloride 270 ml @ 270 mls/hr Q8H IV 12/18/20 05:00 12/20/20 12:58 DC 12/20/20 05:42 Vancomycin HCl 1000 mg/IV Miscellaneous Supplies 1 each/ Sodium Chloride 270 ml @ 270 mls/hr Q8H IV 12/21/20 14:00 Allergies Coded Allergies: meperidine (Verified Adverse Reaction, Intermediate, VOMITING, 12/05/20) Eve Gaines MD Dec 21, 2020 13:23
[2020-12-21 14:00] VITALS: BP 140/62
[2020-12-21] MEDS: VANCOMYCIN HCL 1,000 MG, VIAL MATE ADAPTER 1 EACH in NS 250 ML IV SCH ×2 (14:36→22:20)
[2020-12-21] MEDS: SODIUM CHLORIDE 0.9% INJ 10 ML SYR IV PRN (16:06)
[2020-12-21] MEDS ORDERED: POTASSIUM CHLORIDE 10 MEQ SR TABLET PO ONE (17:00)
[2020-12-21 19:44] VITALS: BP 111/47
[2020-12-21 20:00] VITALS: BP 111/47
[2020-12-22] MEDS: PERCOCET 5MG/325MG TAB PO PRN ×5 (01:32→23:00)
[2020-12-22] MEDS: SODIUM CHLORIDE 0.9% INJ 10 ML SYR IV SCH ×2 (06:01→18:47)
[2020-12-22] MEDS: VANCOMYCIN HCL 1,000 MG, VIAL MATE ADAPTER 1 EACH in NS 250 ML IV SCH ×3 (06:01→23:00)
[2020-12-22 06:09] VITALS: BP 127/72
[2020-12-22 07:42] LABS: HEMATOCRIT 27.5 % (42.0-52.0); HEMOGLOBIN 8.9 g/dl (13.5-17.5); MEAN CORPUSCULAR HEMOGLOBIN 33.8 pg (27.0-33.0); MEAN CORPUSCULAR HGB CONC 32.4 g/dl (32.0-36.5); MEAN CORPUSCULAR VOLUME 104.6 fl (80.0-96.0); RED BLOOD COUNT 2.63 10^6/uL (4.30-6.10); WHITE BLOOD COUNT 4.3 10^3/uL (4.0-10.0)
[2020-12-22 07:50] LABS: PLATELET COUNT, AUTOMATED 72 10^3/uL (150-450)
[2020-12-22 08:16] LABS: ALBUMIN 2.3 GM/DL (3.2-5.2); ALT/SGPT 27 U/L (12-78); BILIRUBIN,TOTAL 4.7 MG/DL (0.2-1.0); BLOOD UREA NITROGEN 15 MG/DL (7-18); C REACTIVE PROTEIN QUANTITATIV 1.25 MG/DL (0.00-0.30); CALCIUM LEVEL 8.5 MG/DL (8.8-10.2); CARBON DIOXIDE LEVEL 28 MEQ/L (21-32); CHLORIDE LEVEL 109 MEQ/L (98-107); CREATININE FOR GFR 0.62 MG/DL (0.70-1.30); GLOMERULAR FILTRATION RATE > 60.0 (>49); GLUCOSE, FASTING 127 MG/DL (70-100); POTASSIUM SERUM 3.3 MEQ/L (3.5-5.1); SODIUM LEVEL 143 MEQ/L (136-145); TOTAL PROTEIN 4.6 GM/DL (6.4-8.2)
--- NOTE | 2020-12-22 09:26 | IPN ---
PROGRESS NOTE DATE: 12/21/2020 SUBJECTIVE: Bonilla was seen and examined this afternoon by the infectious disease service while lying in bed. He reports continuing to do well upon ambulating under the guidance of the physical therapy service with his walker. He denies any falls, significant pain, or shortness of breath with ambulation. He remains on isolation, as his son who visited this weekend both Friday and Friday from [place] subsequently tested positive for COVID-19. At this time, the patient needs to remain here in the hospital for ten days from this past Friday, which would be through next Friday. He continues to eat and drink without any issues. He reports being more alert today versus previous days. He denies any fever, chills, night sweats, chest pain, palpitations, shortness of breath, cough, abdominal pain, decreased appetite, nausea, vomiting, diarrhea, or blood in stool. He reports his pain level is relatively well-controlled. OBJECTIVE: VITAL SIGNS: Temperature of 98.8, heart rate of 84, respiratory rate of 18, blood pressure of 140/62, SpO2 of 98% on room air. GENERAL: Elderly appearing male lying upright in bed. In no acute distress. Has a wound VAC over his right hip. Alert and oriented x3. HEENT: Normocephalic, atraumatic. Noninjected. Anicteric sclerae. Mucous membranes appear more moist than on previous exam. There is no pharyngeal erythema or exudate. CARDIOVASCULAR: Regular rate, regular rhythm. Continues to be a 2/6 systolic murmur heard best at the right second intercostal space. 2+ radial pulses bilaterally. RESPIRATORY: Continues to have slightly diminished breath sounds bilaterally. Otherwise, no adventitious breath sounds are appreciated. The patient is breathing room air with symmetric chest expansion and no accessory muscle use. ABDOMEN: Soft, nontender, and nondistended. Normoactive bowel sounds are present. There is no rigidity. EXTREMITIES: The patient has roughly 8-10 inch long dressing over the right lateral hip and proximal right lower extremity, attached to a wound VAC. There is also a JESSY drain in place over the right proximal lower extremity with some sanguineous drainage. There is a significant area of ecchymosis overlying the right lateral lower extremity from approximately the hip all the way down distally beyond the patella. There is greater warmth to the right lower extremity as compared to the left lower extremity. There is bilateral lower extremity edema approximately 1+ extending up superiorly midway on the right thigh and up to the left knee on the left side. NEUROLOGIC: The patient is alert and oriented x3. No focal deficits appreciated. Nondysarthric speech. LABORATORY DATA: WBC 3.3, hemoglobin 8.5, hematocrit 26.2, MCV 105.6, platelet count 58,000, ESR = 28. Sodium =141, potassium 3.4, chloride 108, bicarb 29, BUN 17, cr=0.66, glucose 183, calcium 8.2, total bilirubin 3.1, AST of 28, ALT of 31, alkaline phosphatase of 76, C-reactive protein of 1.14, total protein of 4.6, albumin of 2.1. Vancomycin trough this afternoon was 19.7. MICROBIOLOGY: There are no new samples besides the initial hip revision tissue biopsy. There was one culture done during the revision, which grew Staphylococcus epidermidis. IMAGING DATA: There is no new imaging today's. IMPRESSION AND PLAN: Status post right total hip arthroplasty with one-step revision due to persistent sanguineous discharge postoperatively in the setting of thrombocytopenia, elevated PT, and liver cirrhosis. -We continue to not be fully convinced that this is a true prosthetic joint infection, as there were few Staphylococcus epidermidis samples that grew, and there was only one culture drawn so we're unsure if this is a contaminant. The patient has decreased platelets, as well as significant dependent edema secondary to his liver cirrhosis; but in the setting of a prosthetic joint infection and tissue biopsy growth of the Staphylococcus epidermidis, we are compelled to treat for possible prosthetic joint infection. The patient will continue for now on IV vancomycin 1 gram every 8 hours. We started oral rifampin 300 mg b.i.d. two days ago. Usually in the setting of prosthetic joint infection, the patient would receive an intravenous (IV) antibiotic specific to the bug that is grown, as well as the oral rifampin. Due to potential hepatotoxic side effects of rifampin in the setting of the patient's known liver cirrhosis and the fact that he likely, in about a week or so, will be returning back to [place], there is consideration to discontinue the rifampin upon hospital discharge. Nonetheless, he should continue with the IV vancomycin for the duration of the six weeks. We have discussed with Jose Morrow of patient family services regarding placement and have also spoken to the patient's son and significant other in [place]. The patient will likely return home to [place] with his significant other (Cyndie), and will continue with his follow-up labs and IV antibiotics via PICC line as overseen provider in [place]. Dictated by Kvng Iglesias DO in conjunction with attending Cordelia Martin
[2020-12-22 10:04] LABS: ERYTHROCYTE SEDIMENTATION RATE 24 mm/hr (0-20)
[2020-12-22] MEDS: SENOKOT S TAB PO SCH ×2 (10:15→20:17)
[2020-12-22] MEDS: rifAMPin 150MG CAPSULE PO SCH ×2 (10:15→20:17)
[2020-12-22] MEDS: MULTIVITAMINS/MINERALS THERAP 1 TAB PO SCH (10:15)
[2020-12-22] MEDS: FOLIC ACID 1 MG TAB PO SCH (10:15)
[2020-12-22 12:18] VITALS: O2SAT 97
[2020-12-22 15:12] VITALS: BP 135/57
[2020-12-22 18:18] LABS: APPEARANCE, URINE HAZY (CLEAR); BACTERIA, URINE AUTO NEGATIVE (NEGATIVE); BILIRUBIN, URINE AUTO NEGATIVE (NEGATIVE); BLOOD, URINE BLOOD NEGATIVE (NEGATIVE); CALCIUM OXALATE CRYSTALS SMALL; COLOR, URINE AMBER (YELLOW); GLUCOSE, URINE (UA) AUTO NEGATIVE (NEGATIVE); KETONE, URINE AUTO NEGATIVE (NEGATIVE); LEUKOCYTE ESTERASE, URINE AUTO NEGATIVE (NEGATIVE); MUCUS, URINE SMALL (NEGATIVE); NITRITE, URINE AUTO NEGATIVE (NEGATIVE); PROTEIN, URINE AUTO 1+ mg/dL (NEGATIVE); RBC, URINE AUTO 1 /HPF (0-3); SPECIFIC GRAVITY URINE AUTO 1.019 (1.002-1.035); SQUAMOUS EPITHELIAL CELL UR AU 0 /HPF (0-6); WBC, URINE AUTO 0 /HPF (0-3)
[2020-12-22] MEDS: SODIUM CHLORIDE 0.9% INJ 10 ML SYR IV PRN (18:47)
[2020-12-22 20:39] VITALS: BP 138/54
[2020-12-22 21:08] VITALS: O2SAT 98
--- NOTE | 2020-12-23 00:01 | IPN ---
PROGRESS NOTE DATE: 12/22/2020 SUBJECTIVE: Bonilla was seen and examined this morning at the bedside by the infectious disease service. He reports having a difficult evening as he experienced some painless hematuria, as well as struggled to find a consistent comfortable position to sleep. He feels as though he ambulated too much yesterday this subsequently affected his ability to get comfortable when returning to bed. As far as the ambulation, he's doing well and continues to work with physical therapy. No issues with eating or drinking, although he did say that his appetite got diminished after seeing the painless hematuria. He denies any flank pain, any dysuria of any kind, foul smelling urine, fever, chills, night sweats. In addition, he also denies any chest pain, palpitations, shortness of breath or abdominal pain. Upon the time of our visit this morning, he feels as though his pain remains relatively well controlled. OBJECTIVE: VITAL SIGNS: Temperature of 97.8, respiratory rate of 18, pulse of 88, blood pressure of 127/72, pulse FPO2 of 97% on room air. GENERAL: Elderly appearing male, some pale coloring to the face. Alert and oriented x3. No acute distress. HEENT: Normocephalic, atraumatic. Non-injected, anicteric sclerae. There is conjunctival pallor. Mucous membranes are moist and there is no appreciated pharyngeal erythema or exudate. CARDIOVASCULAR: Regular rate, regular rhythm. 2/6 systolic murmur heard at right 2nd intercostal space most especially. 2+ radial pulses bilaterally. RESPIRATORY: There is some slight diminishment of breath sounds bilaterally, otherwise no adventitious breath sounds are appreciated. Breathing room air with no accessory muscle use and symmetric chest expansion. ABDOMEN: Soft and non-distended. There is some suprapubic tenderness upon deep palpation. There is no rigidity appreciated. Hypoactive bowel sounds are present. Abdomen is moderately obese. There is right costovertebral angle (CVA) tenderness. Inferior margin of the liver is appreciated approximately 4 to 5 cm below the costal margin. EXTREMITIES: There remains a wound VAC in place over the right lateral hip. There is a roughly 8 to 10 inch long dressing over this lateral aspect of the hip that appears to be dry and intact. There is also a JESSY drain in place with a decent amount of sanguinous drainage. There remains a significant linear band of ecchymosis overlying the right lateral lower extremity from the hip all the way distally to the patella. The right lower extremity is slightly warmer to the touch than the left lower extremity. There is 1+ pitting edema bilaterally that extends superiorly up to midthigh on the right and proximally the left knee on the left side. Overall, the patient's dependent edema appears slightly less than yesterday. There is also a bilateral pedal edema, greater on the right foot than the left. There is a PICC line in place in the left upper extremity. NEUROLOGIC: There is slightly diminished sensation over the dorsal aspect of the right foot and distal right lower extremity. There are no focal deficits appreciated. The patient has non-dysarthric speech and is alert and oriented x3. LABORATORY: Complete blood count (CBC): WBC 4.3, hemoglobin 8.9, hematocrit 27.5, MCV 104.6, platelet count of 72,000. ESR of 24. Comprehensive metabolic panel (CMP): Sodium 143, potassium 3.3, chloride 109, bicarbonate 28, BUN 15, creatinine 0.62, glucose 127, calcium 8.5, total bilirubin 4.7, AST 26, ALT 27, alkaline phosphatase 82, C-reactive protein 1.25, total protein 4.6, albumin 2.3. MICROBIOLOGY: There are no new cultures. There remains 12/16 right hip tissue biopsy culture from the revision procedure that grew Staphylococcus epidermitis, which was resistant to oxacillin and Penicillin. IMAGING: There is no new imaging today. 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 -Again, the suspicion that this is a true prosthetic joint infection is low as only a few Staphylococcus epidermitis samples grew on the single culture taken. Therefore, it is difficult to determine if this was a contaminant. The main reason for the revision was continued drainage and bleeding after the initial total hip arthroplasty, but this is most likely due to dependent edema secondary to liver cirrhosis, as well as thrombocytopenia. Nonetheless, in the setting of a prosthetic joint revision and a tissue culture growing Staphylococcus epidermitis, we remained compelled to treat for a possible prosthetic joint infection. -The patient continues on day 7 of vancomycin, as well as day 4 of rifampin. As discussed in previous documentation, due to the fact the patient will follow up upon discharge with his provider in [place], and factoring in pt's baseline liver cirrhosis and the hepatotoxic possible side effects of rifampin, we are leaning towards discontinuing the rifampin once he is discharged from the hospital. Regardless, he will require 6 weeks of IV antibiotics in the form of vancomycin. The date of the initial culture growing Staphylococcus epidermitis is 12/16; therefore, we are compelled to treat through January 27. We have spoken with the patient's primary care provider in [place] and made said provider aware of necessary follow up and labs. It is important to note the patient continues to not have leukocytosis and his ESR is downtrending. His CRP remains around 1 and had been downtrending on previous days. Painless hematuria. -The patient had painless hematuria overnight and this morning and had right costovertebral angle (CVA) tenderness, as well as suprapubic tenderness on examination. We have ordered a urinalysis with reflex to culture and will continue to monitor this. He does have a baseline anemia, but this appears to be stable and he has the aforementioned thrombocytopenia as well. Thrombocytopenia. -Platelet count actually increased today for the first time during his stay from 58,000 up to 72,000. This is most likely secondary to his liver cirrhosis and hopefully will continue to improve and remain stable as he has not had alcohol for the past 10 plus days since the admission. Decreasing creatinine. -The patient is on day 7 of vancomycin, so it is important to monitor his creatinine as it has decreased for three consecutive days. BUN and calculated glomerular filtration rate (GFR) continue to remain within normal limits. Alcoholic liver cirrhosis. -The patient's liver enzymes were within normal limits today and his platelet count has actually come up slightly, but he is still thrombocytopenic. As discussed above, due to his baseline cirrhosis and the fact our infectious disease team will not be able to follow him upon discharge for the duration of the 6 weeks of IV antibiotics due to his return to [place], we will likely discontinue the oral rifampin at time of discharge. Dependent edema remains present and is likely the result of low protein, as total protein and albumin have consistently been on low on labs. Although it is important to note that on examination today the dependent edema appeared slightly decreased in amount than on previous examination. MTDD
[2020-12-23] MEDS: VANCOMYCIN HCL 1,000 MG, VIAL MATE ADAPTER 1 EACH in NS 250 ML IV SCH ×3 (05:17→23:06)
[2020-12-23] MEDS: SODIUM CHLORIDE 0.9% INJ 10 ML SYR IV SCH ×2 (05:17→18:02)
[2020-12-23] MEDS: PERCOCET 5MG/325MG TAB PO PRN ×4 (05:17→20:12)
[2020-12-23 05:39] LABS: HEMATOCRIT 27.6 % (42.0-52.0); HEMOGLOBIN 8.7 g/dl (13.5-17.5); MEAN CORPUSCULAR HEMOGLOBIN 33.3 pg (27.0-33.0); MEAN CORPUSCULAR HGB CONC 31.5 g/dl (32.0-36.5); MEAN CORPUSCULAR VOLUME 105.7 fl (80.0-96.0); RED BLOOD COUNT 2.61 10^6/uL (4.30-6.10)
[2020-12-23 05:42] LABS: PLATELET COUNT, AUTOMATED 68 10^3/uL (150-450)
[2020-12-23 05:49] VITALS: BP 135/55
[2020-12-23 06:05] LABS: ALBUMIN 2.2 GM/DL (3.2-5.2); ALT/SGPT 25 U/L (12-78); BILIRUBIN,TOTAL 4.1 MG/DL (0.2-1.0); BLOOD UREA NITROGEN 13 MG/DL (7-18); C REACTIVE PROTEIN QUANTITATIV 1.48 MG/DL (0.00-0.30); CALCIUM LEVEL 8.5 MG/DL (8.8-10.2); CARBON DIOXIDE LEVEL 28 MEQ/L (21-32); CHLORIDE LEVEL 109 MEQ/L (98-107); CREATININE FOR GFR 0.57 MG/DL (0.70-1.30); GLOMERULAR FILTRATION RATE > 60.0 (>49); GLUCOSE, FASTING 105 MG/DL (70-100); POTASSIUM SERUM 3.7 MEQ/L (3.5-5.1); SODIUM LEVEL 143 MEQ/L (136-145); TOTAL PROTEIN 4.5 GM/DL (6.4-8.2)
[2020-12-23 06:14] LABS: ERYTHROCYTE SEDIMENTATION RATE 29 mm/hr (0-20)
[2020-12-23] MEDS: MULTIVITAMINS/MINERALS THERAP 1 TAB PO SCH (08:14)
[2020-12-23] MEDS: SENOKOT S TAB PO SCH ×2 (08:15→20:11)
[2020-12-23] MEDS: FOLIC ACID 1 MG TAB PO SCH (08:15)
[2020-12-23] MEDS: rifAMPin 150MG CAPSULE PO SCH ×2 (08:15→20:11)
[2020-12-23 13:47] VITALS: BP 129/59
--- NOTE | 2020-12-23 17:34 | IPNPDOC ---
Date Seen The patient was seen on 12/23/20. Progress Note SUBJECTIVE: Hematuria resolved, UA neg. Currently still on precautions for 10 days for COVID exposure. Pt denies chest pain, SOB, fevers, chills. OBJECTIVE: VITAL SIGNS: Please see below PHYSICAL EXAMINATION: VS: Please see below CONSTITUTIONAL: No acute distress, resting comfortably, AAO x 3 EYES: PERRLA, EOM intact HENT, MOUTH: Normocephalic, atraumatic, moist mucous membranes NECK: SUPPLE, no JVD, no lymphadenopathy, no carotid bruit CV: Regular rate and rhythm, S1S2 normal, no murmurs/rubs/gallops RESPIRATORY: Clear to auscultation bilaterally, no rales/rhonchi/wheezes GI: BS positive in 4 quadrants, soft, nontender, nondistended, no rebound or guarding, no organomegaly : Deferred MUSCULOSKELETAL: Single lumen PICC line, normal ROM. No cyanosis, clubbing, swelling, joint deformity, extremity edema INTEGUMENTARY: right hip wound vac, JESSY drain with serosanguinous fluid 70 cc in area of right hip. Large bruised area of right leg/hip extending down entire lateral leg. Tenderness +. Intact, no rashes. Incision covered with bandage. NEUROLOGIC: Cranial Nerves II-XII are intact, no focal deficits PSYCHIATRIC: Mood and affect appropriate CURRENT MEDICATIONS: Please see below LABORATORY DATA: Please see below MICROBIOLOGY: Right hip cx: Staph epidermidis COVID PCR eng IMAGING: no new imaging ASSESSMENT: 70 year old male with h/o alcohol abuse, chronic thrombocytopenia, advanced right hip osteoarthritis admitted for right total hip replacement. Hospitalist was consulted for management of medical comorbidities. PLAN: Right total hip replacement on 12/11/20 with post-op infection Staphylococcus epidermidis -Complicated by postoperative bleeding and persistent drainage from the surgical site. Went back to OR on 12/16/20 had right hip irrigation and debridement, Right hip exchange arthroplasty of the femoral head in a polyethylene acetabular li ner, Insertion of antibiotic beads, Application of Prevena wound VAC. -PT/OT -PICC line in place -Per ID, the patient will be treated with IV vancomycin 1 gram Q 8 hours and rifampin 300 mg p.o. b.i.d. for six weeks (complete 01/27/21). Patient will need to remain at [facility] 10 days minimum until his exposure period is over. Per notes by ID and SW, they have spoken with the patient's primary care provider in [place] and made said provider aware of necessary follow up and monitoring labs. Will confirm details after the weekend to prepare for discharge. Anemia of chronic disease and acute blood loss s/p surgery -H/H 8.7, denies SOB, chest pain, lightheadedness, dizziness -VS stable -No incr bleeding since repeat surgery -Monitor with daily CBC -Would recommend transfusion if <8 or symptomatic Chronic thrombocytopenia 2/2 to cirrhosis of liver. -S/p 2 units of platelets this admission -PLTs 68, have been waxing and waning. -No s/s of incr bleeding -Stopped heparin flushes -F/u daily CBC COVID-19 exposure -by son -COVID test neg -Keep on precautions until total of 10 days -Currently no s/s of virus Cirrhosis of Liver likely 2/2 to alcohol abuse -transaminitis, improving. Bili remains high -no further s/s of bleeding -Monitor CMP regularly Hyperbilirubinemia poss 2/2 to prior bleeding -Waxes and wanes -No abdominal pain, n/v -Improving HTN -not on any meds. -will continue to monitor in hospital. H/O Asthma -Stable on RA DVT prophylaxis -mechanical. AC CI Resolved issues: Increased agitation likely 2/2 to alcohol withdrawal vs. frustration/behavioral VS, I&O, 24H, Fishbone Vital Signs/I&O Vital Signs Date Time Temp Pulse Resp B/P (MAP) Pulse Ox O2 Delivery O2 Flow Rate FiO2 12/23/20 15:27 18 Room Air 12/23/20 13:47 100.0 72 129/59 (82) 97 I&O- Last 24 Hours up to 6 AM 12/23/20 06:00 Intake Total 1650 ml Output Total 680 ml Balance 970 ml Laboratory Data 24H LABS Laboratory Tests 2 12/23/20 05:21: Nucleated Red Blood Cells % (auto) 0.0, Erythrocyte Sedimentation Rate 29H, Anion Gap 6L, Glomerular Filtration Rate > 60.0, Calcium Level 8.5L, Total Bilirubin 4.1H, Aspartate Amino Transf (AST/SGOT) 27, Alanine Aminotransferase (ALT/SGPT) 25, Alkaline Phosphatase 83, C-Reactive Protein, Quantitative 1.48H, Total Protein 4.5L, Albumin 2.2L, Albumin/Globulin Ratio 1.0 CBC/BMP Laboratory Tests 12/23/20 05:21 Microbiology Microbiology 12/22/20 Urine Culture - Final, Complete 12/16/20 Gram Stain - Final, Complete 12/16/20 Surgical Biopsy Culture - Final, Complete Staphylococcus Epidermidis 12/16/20 Anaerobic Culture - Final, Complete Current Medications Current Medications Medications (Trade) Dose Ordered Sig/Cyndi Route PRN Reason Start Time Stop Time Status Last Admin Dose Admin Acetaminophen (Tylenol Tab) 650 mg Q4HP PRN PO TEMP AND PAIN LEVEL 1-4 12/11/20 10:25 12/18/20 10:33 Cefazolin Sodium/ Dextrose 2 gm/IV Miscellaneous Supplies 50 ml @ 75 mls/hr Q8H IV 12/11/20 16:00 12/12/20 08:39 DC 12/12/20 08:56 Cephalexin Monohydrate (Keflex) 500 mg TID PO 12/13/20 09:00 12/16/20 15:00 DC 12/16/20 08:18 Diphenhydramine HCl (Benadryl) 25 mg Q6HP PRN PO ITCHING 12/15/20 20:00 12/20/20 00:07 Fentanyl Citrate (Sublimaze) 25 mcg Q5MP PRN IV PAIN LEVEL 5-10 12/11/20 10:25 12/11/20 10:43 DC 12/11/20 10:20 Fentanyl Citrate (Sublimaze) 25 mcg Q5MP PRN IV PAIN LEVEL 5-10 12/16/20 14:30 12/16/20 14:52 DC 12/16/20 14:51 Folic Acid (Folic Acid) 1 mg DAILY PO 12/18/20 09:00 12/23/20 08:15 Heparin Sodium (Heparin (Flush)) 200 units ASDIRECTED PRN IV SEE LABEL COMMENTS 12/19/20 23:30 12/21/20 07:53 DC 12/20/20 16:27 Heparin Sodium (Heparin (Flush)) 200 units PICC IV 12/20/20 09:00 12/21/20 07:53 DC 12/20/20 10:09 Hydromorphone HCl (Dilaudid) 0.2 mg Q5MP PRN IV PAIN LEVEL 4-7 12/11/20 10:25 12/11/20 11:25 DC 12/11/20 10:33 Lactated Ringer's 1,000 ml @ 100 mls/hr Q10H IV 12/11/20 10:25 12/11/20 11:25 DC Lactated Ringer's 1,000 ml @ 100 mls/hr Q10H IV 12/11/20 10:25 12/11/20 21:22 DC 12/11/20 13:15 Lactated Ringer's 1,000 ml @ 100 mls/hr Q10H IV 12/16/20 14:30 12/16/20 15:30 DC 12/16/20 14:38 Lactated Ringer's 1,000 ml @ 100 mls/hr Q10H IV 12/16/20 15:10 12/16/20 21:43 DC Lidocaine HCl (LIDOCAINE 1% MDV 20ml) 0.1 ml ONCE PRN SQ DISCOMFORT BEFORE IV START 12/11/20 06:00 12/11/20 10:19 DC Lorazepam (Ativan) 2 mg ASDIRECTED PRN PO SEE PROTOCOL 12/17/20 19:15 12/22/20 01:15 DC 12/19/20 13:29 Magnesium Hydroxide (Milk Of Magnesia) 30 ml DAILYPRN PRN PO CONSTIPATION 12/11/20 19:05 Midazolam HCl (Versed) 1 mg Q5M PRN IV ANXIETY 12/16/20 14:30 12/16/20 15:30 DC 12/16/20 14:10 Morphine Sulfate (Morphine Sulfate Inj) 2 mg Q2H PRN IV PAIN LEVEL 5-7 12/11/20 10:25 12/19/20 13:30 Morphine Sulfate (Morphine Sulfate Inj) 2 mg Q5MP PRN IV PAIN LEVEL 5-10 12/16/20 15:00 12/16/20 16:00 DC 12/16/20 15:21 Morphine Sulfate (Morphine Sulfate Inj) 3 mg Q2H PRN IV PAIN LEVEL 8-10 12/11/20 10:25 12/20/20 22:54 Multivitamins (Theragram-M) 1 tab DAILY PO 12/18/20 09:00 12/23/20 08:14 Ondansetron HCl (ZOFRAN INJection) 4 mg Q4HP PRN IV NAUSEA OR VOMITING 12/11/20 10:25 12/11/20 11:25 DC Ondansetron HCl (ZOFRAN INJection) 4 mg Q4HP PRN IV NAUSEA OR VOMITING 12/16/20 14:30 12/16/20 15:30 DC Ondansetron HCl (ZOFRAN INJection) 4 mg Q6H PRN IV NAUSEA 12/11/20 10:25 Oxycodone HCl (Roxicodone, Oxyir) 5 mg ASDIRECTED PRN PO PAIN LEVEL 1-4 12/11/20 10:25 12/11/20 11:25 DC 12/11/20 10:27 Oxycodone HCl (Roxicodone, Oxyir) 5 mg ASDIRECTED PRN PO PAIN LEVEL 1-4 12/16/20 14:30 12/16/20 15:22 DC 12/16/20 15:22 Oxycodone/ Acetaminophen (Percocet 5mg/ 325mg Tablet) 1 tab Q4HP PRN PO MODERATE PAIN (PS 5-7) 12/17/20 14:15 12/23/20 14:57 Oxycodone/ Acetaminophen (Percocet 5mg/ 325mg Tablet) 1 tab Q6H PRN PO PAIN LEVEL 5-7 12/11/20 10:25 12/17/20 14:16 DC 12/12/20 20:36 Oxycodone/ Acetaminophen (Percocet 5mg/ 325mg Tablet) 2 tab Q4HP PRN PO SEVERE PAIN (PS 8-10) 12/17/20 14:15 12/23/20 10:18 Oxycodone/ Acetaminophen (Percocet 5mg/ 325mg Tablet) 2 tab Q6H PRN PO PAIN LEVEL 8-10 12/11/20 10:25 12/17/20 14:16 DC 12/17/20 11:13 Rifampin (Rifadin) 300 mg BID PO 12/19/20 21:00 01/27/21 23:59 12/23/20 08:15 Rivaroxaban (Xarelto) 10 mg DAILY@18 PO 12/12/20 18:00 12/12/20 13:18 DC Senna/Docusate Sodium (Senokot S) 1 tab BID PO 12/11/20 21:00 12/23/20 08:15 Sodium Chloride (Saline Lock Flush) 10 ml ASDIRECTED PRN IV SEE LABEL COMMENTS 12/19/20 23:30 12/22/20 18:47 Sodium Chloride (Saline Lock Flush) 10 ml PICC IV 12/20/20 09:00 12/23/20 05:17 Thiamine HCl (Thiamine HCl) 100 mg BID PO 12/17/20 21:00 12/20/20 20:59 DC 12/20/20 10:08 Vancomycin HCl 500 mg/Dextrose 110 ml @ 110 mls/hr Q8H IV 12/20/20 14:00 12/21/20 13:00 DC 12/21/20 06:22 Vancomycin HCl 750 mg/IV Miscellaneous Supplies 1 each/ Sodium Chloride 275 ml @ 275 mls/hr Q8H IV 12/20/20 13:00 12/21/20 13:00 DC 12/21/20 04:57 Vancomycin HCl 1000 mg/IV Miscellaneous Supplies 1 each/ Sodium Chloride 270 ml @ 270 mls/hr Q12H IV 12/16/20 17:00 12/18/20 05:10 DC 12/17/20 16:04 Vancomycin HCl 1000 mg/IV Miscellaneous Supplies 1 each/ Sodium Chloride 270 ml @ 270 mls/hr Q8H IV 12/18/20 05:00 12/20/20 12:58 DC 12/20/20 05:42 Vancomycin HCl 1000 mg/IV Miscellaneous Supplies 1 each/ Sodium Chloride 270 ml @ 270 mls/hr Q8H IV 12/21/20 14:00 12/23/20 14:56 Allergies Coded Allergies: meperidine (Verified Adverse Reaction, Intermediate, VOMITING, 12/05/20) Eve Gaines MD Dec 23, 2020 17:34
[2020-12-23 20:51] VITALS: BP 127/60
[2020-12-23] MEDS: MORPHINE 4 MG/ML 1ML VIAL/SYRINGE (J2270) IV PRN (23:12)
[2020-12-24] MEDS: PERCOCET 5MG/325MG TAB PO PRN ×4 (00:40→21:25)
[2020-12-24] MEDS: SODIUM CHLORIDE 0.9% INJ 10 ML SYR IV SCH ×2 (05:59→17:57)
[2020-12-24] MEDS: VANCOMYCIN HCL 1,000 MG, VIAL MATE ADAPTER 1 EACH in NS 250 ML IV SCH ×3 (05:59→21:24)
[2020-12-24 06:05] VITALS: BP 109/58
[2020-12-24 07:08] LABS: HEMATOCRIT 27.5 % (42.0-52.0); HEMOGLOBIN 8.7 g/dl (13.5-17.5); MEAN CORPUSCULAR HEMOGLOBIN 34.3 pg (27.0-33.0); MEAN CORPUSCULAR HGB CONC 31.6 g/dl (32.0-36.5); MEAN CORPUSCULAR VOLUME 108.3 fl (80.0-96.0); RED BLOOD COUNT 2.54 10^6/uL (4.30-6.10); WHITE BLOOD COUNT 3.2 10^3/uL (4.0-10.0)
[2020-12-24 07:10] LABS: PLATELET COUNT, AUTOMATED 62 10^3/uL (150-450)
[2020-12-24 07:32] LABS: BLOOD UREA NITROGEN 13 MG/DL (7-18); CARBON DIOXIDE LEVEL 29 MEQ/L (21-32); CHLORIDE LEVEL 109 MEQ/L (98-107); CREATININE FOR GFR 0.59 MG/DL (0.70-1.30); GLOMERULAR FILTRATION RATE > 60.0 (>49); GLUCOSE, FASTING 142 MG/DL (70-100); POTASSIUM SERUM 3.4 MEQ/L (3.5-5.1); SODIUM LEVEL 142 MEQ/L (136-145)
[2020-12-24] MEDS: SENOKOT S TAB PO SCH ×2 (08:13→21:24)
[2020-12-24] MEDS: FOLIC ACID 1 MG TAB PO SCH (08:13)
[2020-12-24] MEDS: rifAMPin 150MG CAPSULE PO SCH ×2 (08:13→21:24)
[2020-12-24] MEDS: MULTIVITAMINS/MINERALS THERAP 1 TAB PO SCH (08:13)
[2020-12-24] MEDS: POTASSIUM CHLORIDE 10 MEQ SR TABLET PO SCH (10:59)
[2020-12-24 14:00] VITALS: BP 124/52
[2020-12-24 15:15] VITALS: BP 136/81
[2020-12-24 22:00] VITALS: BP 134/65
[2020-12-25] MEDS: PERCOCET 5MG/325MG TAB PO PRN ×4 (02:59→21:06)
[2020-12-25] MEDS: VANCOMYCIN HCL 1,000 MG, VIAL MATE ADAPTER 1 EACH in NS 250 ML IV SCH ×3 (05:22→21:06)
[2020-12-25] MEDS: SODIUM CHLORIDE 0.9% INJ 10 ML SYR IV SCH ×2 (05:22→18:50)
[2020-12-25 06:00] VITALS: BP 121/44
[2020-12-25 06:59] LABS: HEMATOCRIT 28.1 % (42.0-52.0); HEMOGLOBIN 8.9 g/dl (13.5-17.5); MEAN CORPUSCULAR HGB CONC 31.7 g/dl (32.0-36.5); MEAN CORPUSCULAR VOLUME 107.3 fl (80.0-96.0); RED BLOOD COUNT 2.62 10^6/uL (4.30-6.10)
[2020-12-25 07:02] LABS: PLATELET COUNT, AUTOMATED 66 10^3/uL (150-450)
[2020-12-25 07:18] LABS: BLOOD UREA NITROGEN 14 MG/DL (7-18); CALCIUM LEVEL 8.5 MG/DL (8.8-10.2); CARBON DIOXIDE LEVEL 27 MEQ/L (21-32); CHLORIDE LEVEL 107 MEQ/L (98-107); CREATININE FOR GFR 0.61 MG/DL (0.70-1.30); GLOMERULAR FILTRATION RATE > 60.0 (>49); GLUCOSE, FASTING 165 MG/DL (70-100); POTASSIUM SERUM 3.6 MEQ/L (3.5-5.1); SODIUM LEVEL 139 MEQ/L (136-145)
--- NOTE | 2020-12-25 09:18 | REP ---
INDICATION: r/o DVT COMPARISON: None. TECHNIQUE: Palacios scale and color Doppler evaluation using linear high frequency transducer. FINDINGS: Ultrasound examination of the right lower extremity deep venous structures from the common femoral vein to the popliteal vein demonstrates subcutaneous edema with normal compressibility flow and wave patterns in response to respiration and augmentation. There is no evidence for deep venous thrombosis. IMPRESSION: No evidence for deep venous thrombosis. <Electronically signed by Matt Castrejon > 12/25/20 0915
[2020-12-25] MEDS ORDERED: SIMETHICONE 80MG CHEW TAB PO PRN (09:45)
[2020-12-25 09:46] VITALS: BP 129/45
[2020-12-25] MEDS: SENOKOT S TAB PO SCH ×2 (10:03→21:06)
[2020-12-25] MEDS: MULTIVITAMINS/MINERALS THERAP 1 TAB PO SCH (10:03)
[2020-12-25] MEDS: POTASSIUM CHLORIDE 10 MEQ SR TABLET PO SCH (10:04)
[2020-12-25] MEDS: FOLIC ACID 1 MG TAB PO SCH (10:04)
[2020-12-25] MEDS: rifAMPin 150MG CAPSULE PO SCH ×2 (10:05→21:05)
--- NOTE | 2020-12-25 13:37 | IPNPDOC ---
Date Seen The patient was seen on 12/25/20. Progress Note SUBJECTIVE: JESSY drain and wound vac removed from right side, wound appears well healing and covered in clean gauze. All blood levels are stable at lower than normal levels. No transfusions required. Currently still on precautions for 10 days for COVID exposure. Pt denies chest pain, SOB, fevers, chills. OBJECTIVE: VITAL SIGNS: Please see below PHYSICAL EXAMINATION: VS: Please see below CONSTITUTIONAL: No acute distress, resting comfortably, AAO x 3 EYES: PERRLA, EOM intact HENT, MOUTH: Normocephalic, atraumatic, moist mucous membranes NECK: SUPPLE, no JVD, no lymphadenopathy, no carotid bruit CV: Regular rate and rhythm, S1S2 normal, no murmurs/rubs/gallops RESPIRATORY: Clear to auscultation bilaterally, no rales/rhonchi/wheezes GI: BS positive in 4 quadrants, soft, nontender, nondistended, no rebound or guarding, no organomegaly : Deferred MUSCULOSKELETAL: Single lumen PICC line, normal ROM. No cyanosis, clubbing, swelling, joint deformity, extremity edema INTEGUMENTARY: right hip wound vac, Large bruised area of right leg/hip extending down entire lateral leg is improving daily. Tenderness +. Intact, no rashes. Incision covered with bandage. NEUROLOGIC: Cranial Nerves II-XII are intact, no focal deficits PSYCHIATRIC: Mood and affect appropriate CURRENT MEDICATIONS: Please see below LABORATORY DATA: Please see below MICROBIOLOGY: Right hip cx: Staph epidermidis COVID PCR eng IMAGING: no new imaging ASSESSMENT: 70 year old male with h/o alcohol abuse, chronic thrombocytopenia, advanced right hip osteoarthritis admitted for right total hip replacement. Hospitalist was consulted for management of medical comorbidities. PLAN: Right total hip replacement on 12/11/20 with post-op infection Staphylococcus epidermidis -Afebrile, no s/s of worsening infection -Complicated by postoperative bleeding and persistent drainage from the surgical site. Went back to OR on 12/16/20 had right hip irrigation and debridement, Right hip exchange arthroplasty of the femoral head in a polyethylene acetabular liner, Insertion of antibiotic beads, Application of Prevena wound VAC. -PICC line in place -Per ID, the patient will be treated with IV vancomycin 1 gram Q 8 hours and rifampin 300 mg p.o. b.i.d. for six weeks (complete 01/27/21). Patient will need to remain at [facility] 10 days minimum until his exposure period is over. Per notes by ID and MARTÍNEZ, they have spoken with the patient's primary care provider in [place] and made said provider aware of necessary follow up and monitoring labs. Will need to stay here until 10 days of quarantine for COVID exposure is up then likely d/c home with services set up. -PT/OT Anemia of chronic disease and acute blood loss s/p surgery -H/H low but stable at 8.9/28, denies SOB, chest pain, lightheadedness, dizziness -VS stable -No incr bleeding since repeat surgery -Monitor with daily CBC -Would recommend transfusion if <8 or symptomatic Chronic thrombocytopenia 2/2 to cirrhosis of liver. -S/p 2 units of platelets this admission -PLTs 66, have been waxing and waning. -No s/s of incr bleeding -Stopped heparin flushes -F/u daily CBC COVID-19 exposure -by son -COVID test neg -Keep on precautions until total of 10 days (middle of this week) -Currently no s/s of virus Cirrhosis of Liver likely 2/2 to alcohol abuse -transaminitis, improving. Bili remains high -no further s/s of bleeding -Monitor CMP regularly Hyperbilirubinemia poss 2/2 to prior bleeding -Waxes and wanes -No abdominal pain, n/v -Improving HTN -not on any meds. -will continue to monitor in hospital. H/O Asthma -Stable on RA DVT prophylaxis -mechanical. AC CI Resolved issues: Increased agitation likely 2/2 to alcohol withdrawal vs. frustration/behavioral VS, I&O, 24H, Fishbone Vital Signs/I&O Vital Signs Date Time Temp Pulse Resp B/P (MAP) Pulse Ox O2 Delivery O2 Flow Rate FiO2 12/25/20 10:22 18 12/25/20 09:46 98.2 70 129/45 (73) 96 Room Air I&O- Last 24 Hours up to 6 AM 12/25/20 06:00 Intake Total 2120 ml Balance 2120 ml Laboratory Data 24H LABS Laboratory Tests 2 12/25/20 06:27: Nucleated Red Blood Cells % (auto) 0.0, Anion Gap 5L, Glomerular Filtration Rate > 60.0, Calcium Level 8.5L 12/25/20 12:57: Vancomycin Level Trough 16.2 CBC/BMP Laboratory Tests 12/25/20 06:27 Microbiology Microbiology 12/22/20 Urine Culture - Final, Complete 12/16/20 Gram Stain - Final, Complete 12/16/20 Surgical Biopsy Culture - Final, Complete Staphylococcus Epidermidis 12/16/20 Anaerobic Culture - Final, Complete Current Medications Current Medications Medications (Trade) Dose Ordered Sig/Cyndi Route PRN Reason Start Time Stop Time Status Last Admin Dose Admin Acetaminophen (Tylenol Tab) 650 mg Q4HP PRN PO TEMP AND PAIN LEVEL 1-4 12/11/20 10:25 12/18/20 10:33 Cefazolin Sodium/ Dextrose 2 gm/IV Miscellaneous Supplies 50 ml @ 75 mls/hr Q8H IV 12/11/20 16:00 12/12/20 08:39 DC 12/12/20 08:56 Cephalexin Monohydrate (Keflex) 500 mg TID PO 12/13/20 09:00 12/16/20 15:00 DC 12/16/20 08:18 Diphenhydramine HCl (Benadryl) 25 mg Q6HP PRN PO ITCHING 12/15/20 20:00 12/20/20 00:07 Fentanyl Citrate (Sublimaze) 25 mcg Q5MP PRN IV PAIN LEVEL 5-10 12/11/20 10:25 12/11/20 10:43 DC 12/11/20 10:20 Fentanyl Citrate (Sublimaze) 25 mcg Q5MP PRN IV PAIN LEVEL 5-10 12/16/20 14:30 12/16/20 14:52 DC 12/16/20 14:51 Folic Acid (Folic Acid) 1 mg DAILY PO 12/18/20 09:00 12/25/20 10:04 Heparin Sodium (Heparin (Flush)) 200 units ASDIRECTED PRN IV SEE LABEL COMMENTS 12/19/20 23:30 12/21/20 07:53 DC 12/20/20 16:27 Heparin Sodium (Heparin (Flush)) 200 units PICC IV 12/20/20 09:00 12/21/20 07:53 DC 12/20/20 10:09 Hydromorphone HCl (Dilaudid) 0.2 mg Q5MP PRN IV PAIN LEVEL 4-7 12/11/20 10:25 12/11/20 11:25 DC 12/11/20 10:33 Lactated Ringer's 1,000 ml @ 100 mls/hr Q10H IV 12/11/20 10:25 12/11/20 11:25 DC Lactated Ringer's 1,000 ml @ 100 mls/hr Q10H IV 12/11/20 10:25 12/11/20 21:22 DC 12/11/20 13:15 Lactated Ringer's 1,000 ml @ 100 mls/hr Q10H IV 12/16/20 14:30 12/16/20 15:30 DC 12/16/20 14:38 Lactated Ringer's 1,000 ml @ 100 mls/hr Q10H IV 12/16/20 15:10 12/16/20 21:43 DC Lidocaine HCl (LIDOCAINE 1% MDV 20ml) 0.1 ml ONCE PRN SQ DISCOMFORT BEFORE IV START 12/11/20 06:00 12/11/20 10:19 DC Lorazepam (Ativan) 2 mg ASDIRECTED PRN PO SEE PROTOCOL 12/17/20 19:15 12/22/20 01:15 DC 12/19/20 13:29 Magnesium Hydroxide (Milk Of Magnesia) 30 ml DAILYPRN PRN PO CONSTIPATION 12/11/20 19:05 Midazolam HCl (Versed) 1 mg Q5M PRN IV ANXIETY 12/16/20 14:30 12/16/20 15:30 DC 12/16/20 14:10 Morphine Sulfate (Morphine Sulfate Inj) 2 mg Q2H PRN IV PAIN LEVEL 5-7 12/11/20 10:25 12/19/20 13:30 Morphine Sulfate (Morphine Sulfate Inj) 2 mg Q5MP PRN IV PAIN LEVEL 5-10 12/16/20 15:00 12/16/20 16:00 DC 12/16/20 15:21 Morphine Sulfate (Morphine Sulfate Inj) 3 mg Q2H PRN IV PAIN LEVEL 8-10 12/11/20 10:25 12/23/20 23:12 Multivitamins (Theragram-M) 1 tab DAILY PO 12/18/20 09:00 12/25/20 10:03 Ondansetron HCl (ZOFRAN INJection) 4 mg Q4HP PRN IV NAUSEA OR VOMITING 12/11/20 10:25 12/11/20 11:25 DC Ondansetron HCl (ZOFRAN INJection) 4 mg Q4HP PRN IV NAUSEA OR VOMITING 12/16/20 14:30 12/16/20 15:30 DC Ondansetron HCl (ZOFRAN INJection) 4 mg Q6H PRN IV NAUSEA 12/11/20 10:25 12/24/20 00:41 Oxycodone HCl (Roxicodone, Oxyir) 5 mg ASDIRECTED PRN PO PAIN LEVEL 1-4 12/11/20 10:25 12/11/20 11:25 DC 12/11/20 10:27 Oxycodone HCl (Roxicodone, Oxyir) 5 mg ASDIRECTED PRN PO PAIN LEVEL 1-4 12/16/20 14:30 12/16/20 15:22 DC 12/16/20 15:22 Oxycodone/ Acetaminophen (Percocet 5mg/ 325mg Tablet) 1 tab Q4HP PRN PO MODERATE PAIN (PS 5-7) 12/17/20 14:15 12/23/20 14:57 Oxycodone/ Acetaminophen (Percocet 5mg/ 325mg Tablet) 1 tab Q6H PRN PO PAIN LEVEL 5-7 12/11/20 10:25 12/17/20 14:16 DC 12/12/20 20:36 Oxycodone/ Acetaminophen (Percocet 5mg/ 325mg Tablet) 2 tab Q4HP PRN PO SEVERE PAIN (PS 8-10) 12/17/20 14:15 12/25/20 09:52 Oxycodone/ Acetaminophen (Percocet 5mg/ 325mg Tablet) 2 tab Q6H PRN PO PAIN LEVEL 8-10 12/11/20 10:25 12/17/20 14:16 DC 12/17/20 11:13 Potassium Chloride (Micro-K Extencaps) 30 meq DAILY PO 12/24/20 10:45 12/25/20 10:04 Rifampin (Rifadin) 300 mg BID PO 12/19/20 21:00 01/27/21 23:59 12/25/20 10:05 Rivaroxaban (Xarelto) 10 mg DAILY@18 PO 12/12/20 18:00 12/12/20 13:18 DC Senna/Docusate Sodium (Senokot S) 1 tab BID PO 12/11/20 21:00 12/25/20 10:03 Simethicone (Mylicon) 80 mg TIDP PRN PO GAS PAIN 12/25/20 09:45 Sodium Chloride (Saline Lock Flush) 10 ml ASDIRECTED PRN IV SEE LABEL COMMENTS 12/19/20 23:30 12/22/20 18:47 Sodium Chloride (Saline Lock Flush) 10 ml PICC IV 12/20/20 09:00 12/25/20 05:22 Thiamine HCl (Thiamine HCl) 100 mg BID PO 12/17/20 21:00 12/20/20 20:59 DC 12/20/20 10:08 Vancomycin HCl 500 mg/Dextrose 110 ml @ 110 mls/hr Q8H IV 12/20/20 14:00 12/21/20 13:00 DC 12/21/20 06:22 Vancomycin HCl 750 mg/IV Miscellaneous Supplies 1 each/ Sodium Chloride 275 ml @ 275 mls/hr Q8H IV 12/20/20 13:00 12/21/20 13:00 DC 12/21/20 04:57 Vancomycin HCl 1000 mg/IV Miscellaneous Supplies 1 each/ Sodium Chloride 270 ml @ 270 mls/hr Q12H IV 12/16/20 17:00 12/18/20 05:10 DC 12/17/20 16:04 Vancomycin HCl 1000 mg/IV Miscellaneous Supplies 1 each/ Sodium Chloride 270 ml @ 270 mls/hr Q8H IV 12/18/20 05:00 12/20/20 12:58 DC 12/20/20 05:42 Vancomycin HCl 1000 mg/IV Miscellaneous Supplies 1 each/ Sodium Chloride 270 ml @ 270 mls/hr Q8H IV 12/21/20 14:00 12/25/20 05:22 Allergies Coded Allergies: meperidine (Verified Adverse Reaction, Intermediate, VOMITING, 12/05/20) Eve Gaines MD Dec 25, 2020 13:37
[2020-12-25 14:00] VITALS: BP 127/47
[2020-12-25 17:15] LABS: ALBUMIN 2.3 GM/DL (3.2-5.2); ALT/SGPT 22 U/L (12-78); BILIRUBIN,DIRECT 0.9 MG/DL (0.0-0.2); BILIRUBIN,TOTAL 2.3 MG/DL (0.2-1.0); TOTAL PROTEIN 4.6 GM/DL (6.4-8.2)
[2020-12-25 22:00] VITALS: BP 151/56
[2020-12-26] MEDS: SODIUM CHLORIDE 0.9% INJ 10 ML SYR IV SCH ×2 (05:31→18:07)
[2020-12-26] MEDS: VANCOMYCIN HCL 1,000 MG, VIAL MATE ADAPTER 1 EACH in NS 250 ML IV SCH ×3 (05:31→21:09)
[2020-12-26] MEDS: PERCOCET 5MG/325MG TAB PO PRN ×3 (05:34→20:01)
[2020-12-26 06:00] VITALS: BP 140/53
[2020-12-26 07:16] LABS: HEMATOCRIT 28.2 % (42.0-52.0); HEMOGLOBIN 9.1 g/dl (13.5-17.5); MEAN CORPUSCULAR HEMOGLOBIN 34.5 pg (27.0-33.0); MEAN CORPUSCULAR HGB CONC 32.3 g/dl (32.0-36.5); MEAN CORPUSCULAR VOLUME 106.8 fl (80.0-96.0); RED BLOOD COUNT 2.64 10^6/uL (4.30-6.10)
[2020-12-26 07:19] LABS: PLATELET COUNT, AUTOMATED 69 10^3/uL (150-450)
--- NOTE | 2020-12-26 07:25 | IPN ---
PROGRESS NOTE DATE: 12/25/2020 SUBJECTIVE: Mr. Mary seems to be in a good mood today. He is alert and oriented x3. He is awake. He is not having any tremors. He states that his son, Ever, who has COVID is still in a hotel room in [place] and his will be driving to get him back down to [place]. The patient complains of some right lower quadrant pain, which radiates from the groin area all the way down to the testicle. It comes and goes and it is mostly with change in position. His Prevena wound VAC has been removed and the drain was removed also from the hip. He has ecchymosis extending all the way down to the calf, but that has decreased. MEDICATIONS: Vancomycin 1 gram IV q. 8 hours and rifampin 300 mg p.o. b.i.d. LABORATORY DATA: Sodium 139, potassium 3.6, chloride 107, bicarb 27, BUN 14, creatinine 0.61, glucose 165, calcium 8.5. Bilirubin 2.3, direct 0.9. He had a peak in his bilirubin up to 4.7. AST 25, ALT 22, alkaline phosphatase 95. Total protein 4.6, albumin 2.3. White count 3, hemoglobin 8.9, hematocrit 28.1, platelets 66,000. Last ESR done on 12/23 was 29 and CRP 1.48. Wound culture had final Staph epidermidis as an aerobic culture was negative. OBJECTIVE: VITAL SIGNS: Temperature 98.7, pulse 75, respirations 18, blood pressure 127/47. HEART: Normal S1, S2, distant. No murmurs appreciated. LUNGS: Clear with no wheezes, rales, or rhonchi. ABDOMEN: Obese and soft. Mildly tender in the right lower quadrant area along the inguinal canal. There is a right lower quadrant scar of appendectomy. EXTREMITIES: Right thigh has +2 pitting edema with ecchymosis extending from the surgical scar all the way to the calf. PICC line with no redness or tenderness. NEUROLOGIC: Alert and oriented x3. Moves all extremities. Has good strength in the right leg. Right hip flexion and right knee flexion are fair up to 90 degrees. IMPRESSION: 1. Status post right total hip replacement for severe osteoarthritis with possible postoperative wound infection with Staphylococcus epidermidis on intravenous (IV) vancomycin and p.o. rifampin. Due to his liver cirrhosis and increased bilirubin up to 4.7, I will discontinue rifampin. He will continue with IV vancomycin for a total of six weeks. That will be continued in [place] under his primary provider with end of therapy date being 01/27. 2. Liver cirrhosis. The patient was advised to remain completely abstinent of alcohol. Due to his elevated bilirubin, I will discontinue rifampin. 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 3. Alcohol abuse with delirium tremens (DTs) has resolved. The patient is doing well. 4. COVID exposure from his son. The patient had a COVID test that was negative on 12/11 and 12/21. PLAN; He will finish his isolation on Friday and hopefully, we can anticipate to discharge him on Friday under the care of his significant other Cyndie who will be taking him back to [place]. We will see him towards the end of the month in December the same time as Dr. Gross as an outpatient. KIMANI
[2020-12-26 07:42] LABS: BLOOD UREA NITROGEN 13 MG/DL (7-18); CALCIUM LEVEL 8.2 MG/DL (8.8-10.2); CARBON DIOXIDE LEVEL 26 MEQ/L (21-32); CHLORIDE LEVEL 110 MEQ/L (98-107); CREATININE FOR GFR 0.59 MG/DL (0.70-1.30); GLOMERULAR FILTRATION RATE > 60.0 (>49); GLUCOSE, FASTING 115 MG/DL (70-100); POTASSIUM SERUM 3.6 MEQ/L (3.5-5.1); SODIUM LEVEL 142 MEQ/L (136-145)
[2020-12-26] MEDS: SENOKOT S TAB PO SCH ×2 (09:00→21:00)
[2020-12-26] MEDS: MULTIVITAMINS/MINERALS THERAP 1 TAB PO SCH (09:00)
[2020-12-26] MEDS: FOLIC ACID 1 MG TAB PO SCH (09:00)
[2020-12-26] MEDS: POTASSIUM CHLORIDE 10 MEQ SR TABLET PO SCH (09:00)
[2020-12-26 14:00] VITALS: BP 134/56
[2020-12-26 22:00] VITALS: BP 128/46
[2020-12-27] MEDS: PERCOCET 5MG/325MG TAB PO PRN ×3 (04:36→18:19)
[2020-12-27] MEDS: SODIUM CHLORIDE 0.9% INJ 10 ML SYR IV SCH ×2 (05:36→18:19)
[2020-12-27 06:00] VITALS: BP 129/46
[2020-12-27 06:17] LABS: HEMATOCRIT 28.8 % (42.0-52.0); HEMOGLOBIN 9.1 g/dl (13.5-17.5); MEAN CORPUSCULAR HEMOGLOBIN 34.2 pg (27.0-33.0); MEAN CORPUSCULAR HGB CONC 31.6 g/dl (32.0-36.5); MEAN CORPUSCULAR VOLUME 108.3 fl (80.0-96.0); RED BLOOD COUNT 2.66 10^6/uL (4.30-6.10); WHITE BLOOD COUNT 2.8 10^3/uL (4.0-10.0)
[2020-12-27 06:19] LABS: PLATELET COUNT, AUTOMATED 71 10^3/uL (150-450)
[2020-12-27 06:42] LABS: BLOOD UREA NITROGEN 12 MG/DL (7-18); CALCIUM LEVEL 8.3 MG/DL (8.8-10.2); CARBON DIOXIDE LEVEL 27 MEQ/L (21-32); CHLORIDE LEVEL 110 MEQ/L (98-107); CREATININE FOR GFR 0.62 MG/DL (0.70-1.30); GLOMERULAR FILTRATION RATE > 60.0 (>49); GLUCOSE, FASTING 145 MG/DL (70-100); POTASSIUM SERUM 3.5 MEQ/L (3.5-5.1); SODIUM LEVEL 142 MEQ/L (136-145)
[2020-12-27] MEDS: MULTIVITAMINS/MINERALS THERAP 1 TAB PO SCH (08:56)
[2020-12-27] MEDS: FOLIC ACID 1 MG TAB PO SCH (08:56)
[2020-12-27] MEDS: VANCOMYCIN HCL 1,000 MG, VIAL MATE ADAPTER 1 EACH in NS 250 ML IV SCH ×2 (08:56→22:04)
[2020-12-27] MEDS: POTASSIUM CHLORIDE 10 MEQ SR TABLET PO SCH (08:56)
[2020-12-27] MEDS: SENOKOT S TAB PO SCH ×2 (08:57→21:00)
[2020-12-27] MEDS ORDERED: FUROSEMIDE 20 MG TAB PO ONE (09:00)
--- NOTE | 2020-12-27 09:32 | IPN ---
PROGRESS NOTE DATE: 12/26/2020 SUBJECTIVE: Mr. Mary seems to be doing fairly well. He is walking in and out of the bathroom on his own with a walker. He states that whenever he moves his hip in a certain position, he has shooting pain down the ilioinguinal canal, which is transient. He had a bowel movement today and he has not been constipated. No nausea, vomiting, or diarrhea. No fever or chills. He still has significant lower extremity edema especially on the right side and some edema on the left side. No shortness of breath. MEDICATIONS: Vancomycin 1 gram IV q. 8 hours. OBJECTIVE: GENERAL APPEARANCE: Health looking gentleman in no acute distress. VITAL SIGNS: Temperature 98, pulse 75, respirations 19, blood pressure 134/56, O2 sat 97% on room air. HEART: Normal S1, S2. No murmurs appreciated. LUNGS: Clear. No wheezing, rales or rhonchi. ABDOMEN: Obese, soft, and nontender. GROIN: Mild pain in the inguinal area. EXTREMITIES: Hip flexion and abduction normal. He has +2 to 3 pitting edema along the right thigh with ecchymosis extending from the hip all the way down to the calf. He has +1 edema on the left side as well. LABORATORY DATA: White count 3, hemoglobin 9.1, hematocrit 28.2, platelets 69,000. Sodium 142, potassium 3.6, chloride 110, bicarb 26, BUN 13, creatinine 0.59, glucose 115, calcium 8.2. Vancomycin trough 16.2. SARS-coV-2 negative on 12/21. Urine culture on 12/22 was negative. IMPRESSION: 1. Staph epidermidis possible prosthetic postoperative wound infection of the right hip prosthesis on intravenous (IV) vancomycin. Rifampin was discontinued due to worsening bilirubin. Patient on IV vancomycin for a total of six weeks with end of treatment being 01/27. 2. Liver cirrhosis. The patient will remain abstinent of alcohol. 3. Hypersplenism with secondary pancytopenia. Currently CBC is stable. 4. Alcohol abuse with delirium tremens (DTs). These have resolved, but will advise the patient on complete abstinence of alcohol. 5. COVID exposure from his son. The patient will be off quarantine tomorrow. PLAN: To discharge the patient home on Friday. His significant other, Cyndie, will be driving from [place] to pick him up and take him back home. His home IV antibiotic will be arranged by his primary care provider to finish vancomycin on 01/27. I would suggest switching him to a q. 12 hour regimen. Since it is Staphylococcus epidermidis, I do not think that he needs a higher level and we can keep his trough between 10 and 20. I will discuss this with pharmacy. I have called his significant other, Cyndie, who is a nurse and who agrees on the plan of discharge.
[2020-12-27 14:00] VITALS: BP 125/47
--- NOTE | 2020-12-27 14:59 | IPNPDOC ---
Date Seen The patient was seen on 12/27/20. Progress Note SUBJECTIVE: No acute changes since last evaluation. Currently still on precautions for 10 days for COVID exposure, ends 01/01/21. Pt denies chest pain, SOB, fevers, chills. OBJECTIVE: VITAL SIGNS: Please see below PHYSICAL EXAMINATION: VS: Please see below CONSTITUTIONAL: No acute distress, resting comfortably, AAO x 3 EYES: PERRLA, EOM intact HENT, MOUTH: Normocephalic, atraumatic, moist mucous membranes NECK: SUPPLE, no JVD, no lymphadenopathy, no carotid bruit CV: Regular rate and rhythm, S1S2 normal, no murmurs/rubs/gallops RESPIRATORY: Clear to auscultation bilaterally, no rales/rhonchi/wheezes GI: BS positive in 4 quadrants, soft, nontender, nondistended, no rebound or guarding, no organomegaly : Deferred MUSCULOSKELETAL: Single lumen PICC line, normal ROM. No cyanosis, clubbing, swelling, joint deformity, extremity edema INTEGUMENTARY: right hip wound covered in gauze, Large bruised area of right leg/hip extending down entire lateral leg is improving daily. Tenderness +. Intact, no rashes. Incision covered with bandage. NEUROLOGIC: Cranial Nerves II-XII are intact, no focal deficits PSYCHIATRIC: Mood and affect appropriate CURRENT MEDICATIONS: Please see below LABORATORY DATA: Please see below MICROBIOLOGY: Right hip cx: Staph epidermidis COVID PCR neg IMAGING: no new imaging ASSESSMENT: 70 year old male with h/o alcohol abuse, chronic thrombocytopenia, advanced right hip osteoarthritis admitted for right total hip replacement. Hospitalist was consulted for management of medical comorbidities. PLAN: Right total hip replacement on 12/11/20 with post-op infection Staphylococcus epidermidis -Afebrile, no s/s of worsening infection -Complicated by postoperative bleeding and persistent drainage from the surgical site. Went back to OR on 12/16/20 had right hip irrigation and debridement, Right hip exchange arthroplasty of the femoral head in a polyethylene acetabular liner, Insertion of antibiotic beads, Application of Prevena wound VAC. -PICC line in place -Per ID, plan is home with IV in [place]. His home IV antibiotic will be arranged by his primary care provider in [place] to finish vancomycin Q12H on 01/27/21 -PT/OT Anemia of chronic disease and acute blood loss s/p surgery -H/H low but stable -VS stable -No incr bleeding since repeat surgery -Monitor with daily CBC -Would recommend transfusion if <8 or symptomatic Chronic thrombocytopenia 2/2 to cirrhosis of liver. -S/p 2 units of platelets this admission -PLTs 71, have been waxing and waning. -No s/s of incr bleeding -Stopped heparin flushes -F/u daily CBC COVID-19 exposure -by son -COVID test neg -Keep on precautions until total of 10 days (middle of this week) -Currently no s/s of virus Cirrhosis of Liver likely 2/2 to alcohol abuse -transaminitis, improving. Bili remains high -no further s/s of bleeding -Monitor CMP regularly Hyperbilirubinemia poss 2/2 to rifampin -No abdominal pain, n/v -Improving and stopped rifampin HTN -not on any meds. -will continue to monitor in hospital. H/O Asthma -Stable on RA DVT prophylaxis -mechanical. AC CI Resolved issues: Increased agitation likely 2/2 to alcohol withdrawal PLAN: To discharge the patient home on Friday. His significant other, Cyndie, will be driving from [employer] to pick him up and take him back home. VS, I&O, 24H, Fishbone Vital Signs/I&O Vital Signs Date Time Temp Pulse Resp B/P (MAP) Pulse Ox O2 Delivery O2 Flow Rate FiO2 12/27/20 14:00 99.5 70 18 125/47 (73) 96 Room Air I&O- Last 24 Hours up to 6 AM 12/27/20 06:00 Intake Total 1770 ml Output Total 100 ml Balance 1670 ml Laboratory Data 24H LABS Laboratory Tests 2 12/27/20 05:58: Nucleated Red Blood Cells % (auto) 0.0, Anion Gap 5L, Glomerular Filtration Rate > 60.0, Calcium Level 8.3L CBC/BMP Laboratory Tests 12/27/20 05:58 Microbiology Microbiology 12/22/20 Urine Culture - Final, Complete Current Medications Current Medications Medications (Trade) Dose Ordered Sig/Cyndi Route PRN Reason Start Time Stop Time Status Last Admin Dose Admin Acetaminophen (Tylenol Tab) 650 mg Q4HP PRN PO TEMP AND PAIN LEVEL 1-4 12/11/20 10:25 12/18/20 10:33 Cefazolin Sodium/ Dextrose 2 gm/IV Miscellaneous Supplies 50 ml @ 75 mls/hr Q8H IV 12/11/20 16:00 12/12/20 08:39 DC 12/12/20 08:56 Cephalexin Monohydrate (Keflex) 500 mg TID PO 12/13/20 09:00 12/16/20 15:00 DC 12/16/20 08:18 Diphenhydramine HCl (Benadryl) 25 mg Q6HP PRN PO ITCHING 12/15/20 20:00 12/20/20 00:07 Fentanyl Citrate (Sublimaze) 25 mcg Q5MP PRN IV PAIN LEVEL 5-10 12/11/20 10:25 12/11/20 10:43 DC 12/11/20 10:20 Fentanyl Citrate (Sublimaze) 25 mcg Q5MP PRN IV PAIN LEVEL 5-10 12/16/20 14:30 12/16/20 14:52 DC 12/16/20 14:51 Folic Acid (Folic Acid) 1 mg DAILY PO 12/18/20 09:00 12/27/20 08:56 Heparin Sodium (Heparin (Flush)) 200 units ASDIRECTED PRN IV SEE LABEL COMMENTS 12/19/20 23:30 12/21/20 07:53 DC 12/20/20 16:27 Heparin Sodium (Heparin (Flush)) 200 units PICC IV 12/20/20 09:00 12/21/20 07:53 DC 12/20/20 10:09 Hydromorphone HCl (Dilaudid) 0.2 mg Q5MP PRN IV PAIN LEVEL 4-7 12/11/20 10:25 12/11/20 11:25 DC 12/11/20 10:33 Lactated Ringer's 1,000 ml @ 100 mls/hr Q10H IV 12/11/20 10:25 12/11/20 11:25 DC Lactated Ringer's 1,000 ml @ 100 mls/hr Q10H IV 12/11/20 10:25 12/11/20 21:22 DC 12/11/20 13:15 Lactated Ringer's 1,000 ml @ 100 mls/hr Q10H IV 12/16/20 14:30 12/16/20 15:30 DC 12/16/20 14:38 Lactated Ringer's 1,000 ml @ 100 mls/hr Q10H IV 12/16/20 15:10 12/16/20 21:43 DC Lidocaine HCl (LIDOCAINE 1% MDV 20ml) 0.1 ml ONCE PRN SQ DISCOMFORT BEFORE IV START 12/11/20 06:00 12/11/20 10:19 DC Lorazepam (Ativan) 2 mg ASDIRECTED PRN PO SEE PROTOCOL 12/17/20 19:15 12/22/20 01:15 DC 12/19/20 13:29 Magnesium Hydroxide (Milk Of Magnesia) 30 ml DAILYPRN PRN PO CONSTIPATION 12/11/20 19:05 Midazolam HCl (Versed) 1 mg Q5M PRN IV ANXIETY 12/16/20 14:30 12/16/20 15:30 DC 12/16/20 14:10 Morphine Sulfate (Morphine Sulfate Inj) 2 mg Q2H PRN IV PAIN LEVEL 5-7 12/11/20 10:25 12/19/20 13:30 Morphine Sulfate (Morphine Sulfate Inj) 2 mg Q5MP PRN IV PAIN LEVEL 5-10 12/16/20 15:00 12/16/20 16:00 DC 12/16/20 15:21 Morphine Sulfate (Morphine Sulfate Inj) 3 mg Q2H PRN IV PAIN LEVEL 8-10 12/11/20 10:25 12/23/20 23:12 Multivitamins (Theragram-M) 1 tab DAILY PO 12/18/20 09:00 12/27/20 08:56 Ondansetron HCl (ZOFRAN INJection) 4 mg Q4HP PRN IV NAUSEA OR VOMITING 12/11/20 10:25 12/11/20 11:25 DC Ondansetron HCl (ZOFRAN INJection) 4 mg Q4HP PRN IV NAUSEA OR VOMITING 12/16/20 14:30 12/16/20 15:30 DC Ondansetron HCl (ZOFRAN INJection) 4 mg Q6H PRN IV NAUSEA 12/11/20 10:25 12/24/20 00:41 Oxycodone HCl (Roxicodone, Oxyir) 5 mg ASDIRECTED PRN PO PAIN LEVEL 1-4 12/11/20 10:25 12/11/20 11:25 DC 12/11/20 10:27 Oxycodone HCl (Roxicodone, Oxyir) 5 mg ASDIRECTED PRN PO PAIN LEVEL 1-4 12/16/20 14:30 12/16/20 15:22 DC 12/16/20 15:22 Oxycodone/ Acetaminophen (Percocet 5mg/ 325mg Tablet) 1 tab Q4HP PRN PO MODERATE PAIN (PS 5-7) 12/17/20 14:15 12/23/20 14:57 Oxycodone/ Acetaminophen (Percocet 5mg/ 325mg Tablet) 1 tab Q6H PRN PO PAIN LEVEL 5-7 12/11/20 10:25 12/17/20 14:16 DC 12/12/20 20:36 Oxycodone/ Acetaminophen (Percocet 5mg/ 325mg Tablet) 2 tab Q4HP PRN PO SEVERE PAIN (PS 8-10) 12/17/20 14:15 12/27/20 08:57 Oxycodone/ Acetaminophen (Percocet 5mg/ 325mg Tablet) 2 tab Q6H PRN PO PAIN LEVEL 8-10 12/11/20 10:25 12/17/20 14:16 DC 12/17/20 11:13 Potassium Chloride (Micro-K Extencaps) 30 meq DAILY PO 12/24/20 10:45 12/27/20 08:56 Rifampin (Rifadin) 300 mg BID PO 12/19/20 21:00 12/25/20 21:10 DC 12/25/20 21:05 Rivaroxaban (Xarelto) 10 mg DAILY@18 PO 12/12/20 18:00 12/12/20 13:18 DC Senna/Docusate Sodium (Senokot S) 1 tab BID PO 12/11/20 21:00 12/27/20 08:57 Simethicone (Mylicon) 80 mg TIDP PRN PO GAS PAIN 12/25/20 09:45 Sodium Chloride (Saline Lock Flush) 10 ml ASDIRECTED PRN IV SEE LABEL COMMENTS 12/19/20 23:30 12/22/20 18:47 Sodium Chloride (Saline Lock Flush) 10 ml PICC IV 12/20/20 09:00 12/27/20 05:36 Thiamine HCl (Thiamine HCl) 100 mg BID PO 12/17/20 21:00 12/20/20 20:59 DC 12/20/20 10:08 Vancomycin HCl 500 mg/Dextrose 110 ml @ 110 mls/hr Q8H IV 12/20/20 14:00 12/21/20 13:00 DC 12/21/20 06:22 Vancomycin HCl 750 mg/IV Miscellaneous Supplies 1 each/ Sodium Chloride 275 ml @ 275 mls/hr Q8H IV 12/20/20 13:00 12/21/20 13:00 DC 12/21/20 04:57 Vancomycin HCl 1000 mg/IV Miscellaneous Supplies 1 each/ Sodium Chloride 270 ml @ 270 mls/hr Q12H IV 12/16/20 17:00 12/18/20 05:10 DC 12/17/20 16:04 Vancomycin HCl 1000 mg/IV Miscellaneous Supplies 1 each/ Sodium Chloride 270 ml @ 270 mls/hr Q12H IV 12/27/20 09:00 12/27/20 08:56 Vancomycin HCl 1000 mg/IV Miscellaneous Supplies 1 each/ Sodium Chloride 270 ml @ 270 mls/hr Q8H IV 12/18/20 05:00 12/20/20 12:58 DC 12/20/20 05:42 Vancomycin HCl 1000 mg/IV Miscellaneous Supplies 1 each/ Sodium Chloride 270 ml @ 270 mls/hr Q8H IV 12/21/20 14:00 12/26/20 22:53 DC 12/26/20 21:09 Allergies Coded Allergies: meperidine (Verified Adverse Reaction, Intermediate, VOMITING, 12/05/20) Eve Gaines MD Dec 27, 2020 14:59
[2020-12-27 22:00] VITALS: BP 132/57
[2020-12-28] MEDS: PERCOCET 5MG/325MG TAB PO PRN ×3 (02:25→21:07)
[2020-12-28 06:00] VITALS: BP 134/56
[2020-12-28] MEDS: SODIUM CHLORIDE 0.9% INJ 10 ML SYR IV SCH ×2 (06:52→18:00)
--- NOTE | 2020-12-28 08:41 | REP ---
INDICATION: Post total hip. COMPARISON: Portable postop 12/11/2020 TECHNIQUE: Two views FINDINGS: Skin pili again noted. There is a right total hip arthroplasty and the 2 components are well aligned in relationship to the iroquois bone and each other. Femoral stem component tightly applied to the iroquois femoral shaft. Visualized portion of the ischia, symphysis pubis, inferior right SI joint, visible portion of iliac bone and sacrum all unremarkable. IMPRESSION: Status post right total hip arthroplasty with the 2 components of the prosthesis well aligned in relationship to the iroquois bone and each other. <Electronically signed by Temo العراقي > 12/28/20 0837
--- NOTE | 2020-12-28 08:52 | REP ---
INDICATION: r knee pain COMPARISON: None. TECHNIQUE: AP and lateral views of the right knee FINDINGS: Evaluation is limited by positioning. Tricompartmental arthritic changes are suggested primarily involving the patella and patellofemoral joint space. Joint/suprapatellar effusion noted. No obvious acute fracture or dislocation. IMPRESSION: Limited examination demonstrates tricompartmental degenerative changes and suspected effusion. <Electronically signed by Matt Castrejon > 12/28/20 0812
[2020-12-28 08:56] LABS: HEMATOCRIT 30.9 % (42.0-52.0); HEMOGLOBIN 9.8 g/dl (13.5-17.5); MEAN CORPUSCULAR HEMOGLOBIN 34.3 pg (27.0-33.0); MEAN CORPUSCULAR HGB CONC 31.7 g/dl (32.0-36.5); RED BLOOD COUNT 2.86 10^6/uL (4.30-6.10); WHITE BLOOD COUNT 3.4 10^3/uL (4.0-10.0)
[2020-12-28 08:58] LABS: PLATELET COUNT, AUTOMATED 84 10^3/uL (150-450)
[2020-12-28] MEDS: SENOKOT S TAB PO SCH ×2 (09:00→21:06)
[2020-12-28 09:14] LABS: BLOOD UREA NITROGEN 13 MG/DL (7-18); CALCIUM LEVEL 8.1 MG/DL (8.8-10.2); CARBON DIOXIDE LEVEL 26 MEQ/L (21-32); CHLORIDE LEVEL 113 MEQ/L (98-107); CREATININE FOR GFR 0.59 MG/DL (0.70-1.30); GLOMERULAR FILTRATION RATE > 60.0 (>49); GLUCOSE, FASTING 120 MG/DL (70-100); POTASSIUM SERUM 3.7 MEQ/L (3.5-5.1); SODIUM LEVEL 144 MEQ/L (136-145)
[2020-12-28] MEDS: FOLIC ACID 1 MG TAB PO SCH (10:06)
[2020-12-28] MEDS: MULTIVITAMINS/MINERALS THERAP 1 TAB PO SCH (10:06)
[2020-12-28] MEDS: POTASSIUM CHLORIDE 10 MEQ SR TABLET PO SCH (10:07)
[2020-12-28] MEDS: VANCOMYCIN HCL 750 MG, VIAL MATE ADAPTER 1 EACH in NS 250 ML IV SCH ×2 (10:08→21:07)
[2020-12-28] MEDS: VANCOMYCIN HCL 500 MG in D5W MINI-BAG PLUS 100 ML IV SCH ×2 (11:40→22:44)
[2020-12-28 15:25] VITALS: BP 142/54
[2020-12-28] MEDS ORDERED: IBUPROFEN 600MG TAB PO PRN (15:55)
[2020-12-28] MEDS ORDERED: PERC5TAB12 PO (17:03)
[2020-12-28] MEDS ORDERED: SENN-52 PO (17:39)
[2020-12-28] MEDS ORDERED: ACET1TAB55 PO (17:39)
[2020-12-28] MEDS ORDERED: KLOR10TA76 PO (17:39)
[2020-12-28] MEDS ORDERED: VITMTA PO (17:39)
[2020-12-28] MEDS ORDERED: FOLI1TAB11 PO (17:39)
[2020-12-28] MEDS ORDERED: MI-A80CH PO (17:39)
[2020-12-28 22:00] VITALS: BP 169/71
[2020-12-29] MEDS: SODIUM CHLORIDE 0.9% INJ 10 ML SYR IV SCH (05:18)
[2020-12-29 06:00] VITALS: BP 139/61
[2020-12-29] MEDS: MULTIVITAMINS/MINERALS THERAP 1 TAB PO SCH (08:09)
[2020-12-29] MEDS: POTASSIUM CHLORIDE 10 MEQ SR TABLET PO SCH (08:09)
[2020-12-29] MEDS: FOLIC ACID 1 MG TAB PO SCH (08:09)
[2020-12-29] MEDS: SENOKOT S TAB PO SCH (08:10)
[2020-12-29] MEDS: PERCOCET 5MG/325MG TAB PO PRN (08:10)
[2020-12-29 09:08] LABS: HEMATOCRIT 29.9 % (42.0-52.0); HEMOGLOBIN 9.3 g/dl (13.5-17.5); MEAN CORPUSCULAR HEMOGLOBIN 34.1 pg (27.0-33.0); MEAN CORPUSCULAR HGB CONC 31.1 g/dl (32.0-36.5); MEAN CORPUSCULAR VOLUME 109.5 fl (80.0-96.0); RED BLOOD COUNT 2.73 10^6/uL (4.30-6.10); WHITE BLOOD COUNT 2.6 10^3/uL (4.0-10.0)
[2020-12-29 09:11] LABS: PLATELET COUNT, AUTOMATED 72 10^3/uL (150-450)
[2020-12-29 09:31] LABS: BLOOD UREA NITROGEN 12 MG/DL (7-18); C REACTIVE PROTEIN QUANTITATIV 1.24 MG/DL (0.00-0.30); CARBON DIOXIDE LEVEL 28 MEQ/L (21-32); CHLORIDE LEVEL 114 MEQ/L (98-107); CREATININE FOR GFR 0.55 MG/DL (0.70-1.30); GLOMERULAR FILTRATION RATE > 60.0 (>49); GLUCOSE, FASTING 128 MG/DL (70-100); SODIUM LEVEL 144 MEQ/L (136-145)
--- NOTE | 2020-12-29 10:18 | IPNPDOC ---
Text Note Date of Service The patient was seen on 12/29/20. NOTE SUBJECTIVE: He is anxious about his son having COVID, but otherwise doesn't have any personal medical complaints at this time. He is hoping all will go well with his coming from [place] to pick him up & and their regress back today. Previous documentation regarding how long he needed to be on precautions for COVID were apparently inaccurate, I am informed that he is cleared to go today. OBJECTIVE: VITAL SIGNS: Please see below PHYSICAL EXAMINATION: VS: Please see below CONSTITUTIONAL: No acute distress, resting comfortably, AAO x 3 EYES: PERRLA, EOM intact HENT, MOUTH: Normocephalic, atraumatic, moist mucous membranes NECK: SUPPLE, no JVD, no lymphadenopathy, no carotid bruit CV: Regular rate and rhythm, S1S2 normal, no murmurs/rubs/gallops RESPIRATORY: Clear to auscultation bilaterally, no rales/rhonchi/wheezes GI: BS positive in 4 quadrants, soft, nontender, nondistended, no rebound or guarding, no organomegaly : Deferred MUSCULOSKELETAL: Single lumen PICC line, normal ROM. No cyanosis, clubbing, swelling, joint deformity, extremity edema INTEGUMENTARY: right hip wound covered in gauze, Large bruised area of right leg/hip extending down entire lateral leg is improving daily. Tenderness +. Intact, no rashes. Incision covered with bandage. NEUROLOGIC: Cranial Nerves II-XII are intact, no focal deficits PSYCHIATRIC: Mood and affect appropriate CURRENT MEDICATIONS: Please see below LABORATORY DATA: Please see below MICROBIOLOGY: Right hip cx: Staph epidermidis COVID PCR neg IMAGING: no new imaging ASSESSMENT: 70 year old male with h/o alcohol abuse, chronic thrombocytopenia, advanced right hip osteoarthritis admitted for right total hip replacement. Hospitalist was consulted for management of medical comorbidities. PLAN: Right total hip replacement on 12/11/20 with post-op infection Staphylococcus epidermidis -Afebrile, no s/s of worsening infection -Complicated by postoperative bleeding and persistent drainage from the surgical site. Went back to OR on 12/16/20 had right hip irrigation and debridement, Right hip exchange arthroplasty of the femoral head in a polyethylene acetabular liner, Insertion of antibiotic beads, Application of Prevena wound VAC. -PICC line in place -Per ID, plan is home with IV in [place]. His home IV antibiotic will be arranged by his primary care provider in [place] to finish vancomycin Q12H on 01/27/21 -PT/OT Anemia of chronic disease and acute blood loss s/p surgery -H/H low but stable -VS stable -No incr bleeding since repeat surgery -Monitor with daily CBC -Would recommend transfusion if <8 or symptomatic Chronic thrombocytopenia 2/2 to cirrhosis of liver. -S/p 2 units of platelets this admission -PLTs 72, have been waxing and waning. -No s/s of incr bleeding -Stopped heparin flushes -F/u daily CBC COVID-19 exposure -by son -COVID test neg -Keep on precautions until total of 10 days (middle of this week) -Currently no s/s of virus Cirrhosis of Liver likely 2/2 to alcohol abuse -transaminitis, improving. Bili remains high -no further s/s of bleeding -Monitor CMP regularly Hyperbilirubinemia poss 2/2 to rifampin -No abdominal pain, n/v -Improving and stopped rifampin HTN -not on any meds. -will continue to monitor in hospital. H/O Asthma -Stable on RA DVT prophylaxis -mechanical. AC CI Resolved issues: Increased agitation likely 2/2 to alcohol withdrawal PLAN: Appears medically stable for discharge at this time. Continue home IV antibiotics as indicated above. Will need close followup with PCP in [place] VS,Isabella, I+O VS, Isabella, I+O Laboratory Tests 12/29/20 08:56 Vital Signs Date Time Temp Pulse Resp B/P (MAP) Pulse Ox O2 Delivery O2 Flow Rate FiO2 12/29/20 08:40 18 12/29/20 08:10 Room Air 12/29/20 06:00 98.9 74 139/61 (87) 97 I&O- Last 24 Hours up to 6 AM 12/29/20 06:00 Intake Total 2165 ml Balance 2165 ml JOHN RIVERA DO Dec 29, 2020 10:12
[2020-12-29] MEDS ORDERED: VANCOMYCIN HCL 1,000 MG, VIAL MATE ADAPTER 1 EACH in NS 250 ML IV ONE ×2 (10:30→11:30)
[2020-12-29] MEDS ORDERED: VANCOMYCIN HCL 1,000 MG, VIAL MATE ADAPTER 1 EACH in NS 250 ML IV SCH (10:30)
--- NOTE | 2020-12-29 10:34 | IPN ---
PROGRESS NOTE DATE: 12/28/2020 Mr. Mary is a little upset this afternoon as his son was admitted with COVID pneumonia to [facility]. He is being discharged tomorrow. His significant other, Cyndie, is driving from [place] to take him home. He denies any chest pain, shortness of breath, fever, or chills. He still has some hip pain with movement. Lower extremity has improved. PHYSICAL EXAMINATION: Temperature is 99, pulse 75, respirations 20, blood pressure 169/71, oxygen saturation 98% on room air. Heart: Normal S1, S2, no murmurs. Lungs: Clear, no wheezes, rales, or rhonchi. Abdomen: Obese, soft, nontender. Extremities: Right hip +2 edema with ecchymosis along the hip incision. There is not much drainage from the incision anymore. Left leg no edema. Neurologic exam: Restless legs, no flapping tremors, no palmar erythema. LABORATORY DATA: White count 3.4, hemoglobin 9.8, hematocrit 30.9, platelets 84, sodium 144, potassium 3.7, chloride 113, bicarbonate 26, BUN 13, creatinine 0.59, glucose 120, calcium 8.9. Last CRP was done 12/23/2020, was 1.48. Culture was positive for Staphylococcus epidermidis. Vancomycin trough was done on 12/28/2020, was 9.9. MEDICATIONS: - vancomycin 1.25 grams IV every 12 hours, patient is receiving at 10 a.m. and 10 p.m. IMPRESSION: 1. Status post right total hip replacement with Staphylococcus epidermidis postoperative wound infection on IV vancomycin. Rifampin was discontinued due to hyperbilirubinemia. 2. Liver cirrhosis with secondary thrombocytopenia status post two units of packed red blood cells this admission. Platelets are stable usually between 60 and 80. I have discussed with him his alcohol abuse and I have asked him to remain abstinent for the rest of his life. 3. COVID exposure from his son who is now admitted to the hospital. Patient has a negative COVID test 4 days after exposure. He is asymptomatic. PLAN: Discharge patient home. He will followup with Dr. Rosado's office on 01/29/[address] Gross. His significant other, Cyndie, will be driving from [place] to pick him up tomorrow at noon. End of therapy will be 01/27/2021 and dose of IV vancomycin will be 1.25 grams every 12 hours. Basic labs weekly should be done including complete blood count (CBC), basic profile, vancomycin trough, and C-reactive protein (CRP).
[2020-12-29] MEDS ORDERED: VANCOMYCIN HCL 750 MG, VIAL MATE ADAPTER 1 EACH in NS 250 ML IV ONE (10:40)
[2020-12-29] MEDS ORDERED: VANCOMYCIN HCL 500 MG in D5W MINI-BAG PLUS 100 ML IV SCH (11:30)
[2020-12-29] MEDS ORDERED: VANCOMYCIN HCL 750 MG, VIAL MATE ADAPTER 1 EACH in NS 250 ML IV SCH ×2 (18:00→19:00)
== END 2020-12-29 12:20 | disposition home or self-care (01) | DRG 467 ==
LOC: M OR 06:36 → M MS5PR 13:15
PROVIDERS: ADMIT Orthopaedic Surgery; ATTEND Orthopaedic Surgery
PROC: 30233R1 Transfusion of Nonautologous Platelets into Peripheral Vein, Percutaneous Approach (ICD-10-PCS; 2020-12-11)
PROC: 0SR902Z Replacement of Right Hip Joint with Metal on Polyethylene Synthetic Substitute, Open Approach (ICD-10-PCS; principal; 2020-12-11 07:30)
PROC: 0SP90JZ Removal of Synthetic Substitute from Right Hip Joint, Open Approach (ICD-10-PCS; 2020-12-16)
PROC: 0SR902Z Replacement of Right Hip Joint with Metal on Polyethylene Synthetic Substitute, Open Approach (ICD-10-PCS; 2020-12-16)
PROC: 02HV33Z Insertion of Infusion Device into Superior Vena Cava, Percutaneous Approach (ICD-10-PCS; 2020-12-19)
DX: M16.11 Unilateral primary osteoarthritis, right hip (principal); F10.231 Alcohol dependence with withdrawal delirium; D62 Acute posthemorrhagic anemia; T84.51XA Infection and inflammatory reaction due to internal right hip prosthesis, initial encounter; M96.840 Postprocedural hematoma of a musculoskeletal structure following a musculoskeletal system procedure; D61.818 Other pancytopenia; T81.32XA Disruption of internal operation (surgical) wound, not elsewhere classified, initial encounter; Z96.643 Presence of artificial hip joint, bilateral; D69.59 Other secondary thrombocytopenia; J45.909 Unspecified asthma, uncomplicated; Z90.49 Acquired absence of other specified parts of digestive tract; Z88.8 Allergy status to other drugs, medicaments and biological substances; I10 Essential (primary) hypertension; E80.6 Other disorders of bilirubin metabolism; D75.89 Other specified diseases of blood and blood-forming organs; K70.30 Alcoholic cirrhosis of liver without ascites; R01.1 Cardiac murmur, unspecified; Z20.828 Contact with and (suspected) exposure to other viral communicable diseases; D63.8 Anemia in other chronic diseases classified elsewhere; R31.9 Hematuria, unspecified; Y83.1 Surgical operation with implant of artificial internal device as the cause of abnormal reaction of the patient, or of later complication, without mention of misadventure at the time of the procedure; D73.1 Hypersplenism